=== PATIENT | male | born 1940 | race Caucasian/White ===

== ENCOUNTER 2018-02-22 20:06 | Inpatient (IN) | payer MEDICARE ==
[2018-02-22 22:19] LABS: Glucose,Whole Blood 304 mg/dL (75-99)
--- NOTE | 2018-02-22 22:51 | XR ---
EXAMINATION TYPE: XR chest 1V DATE OF EXAM: 02/22/2018 COMPARISON: 10/17/2012 HISTORY: Difficulty breathing TECHNIQUE: Single frontal view of the chest is obtained. FINDINGS: Heart and mediastinum are normal. Lungs are clear. Diaphragm is normal. There are chest le ads. Bony thorax is intact. IMPRESSION: No active cardiopulmonary disease. No change.
[2018-02-22 23:05] LABS: Basophils % (A) 1 %; Eosinophils % (A) 1 %; HCT 35.2 % (39.0-53.0); HGB 12.8 gm/dL (13.0-17.5); Hyperchromasia Slight; Lymphocytes # (A) 1.5 k/uL (1.0-4.8); Lymphocytes % (A) 21 %; MCH 32.6 pg (25.0-35.0); MCHC 36.3 g/dL (31.0-37.0); MCV 89.9 fL (80.0-100.0); Mean Platelet Volume 8.3; Monocytes # (A) 0.6 k/uL (0-1.0); Monocytes % (A) 8 %; Neutrophils # (A) 4.8 k/uL (1.3-7.7); Neutrophils % (A) 68 %; Platelet Count 143 k/uL (150-450); Poikilocytosis Slight; RBC 3.91 m/uL (4.30-5.90); RDW 13.5 % (11.5-15.5); WBC 7.1 k/uL (3.8-10.6)
[2018-02-22 23:19] LABS: Anion Gap 16 mmol/L; Blood Urea Nitrogen 16 mg/dL (9-20); Calcium 9.4 mg/dL (8.4-10.2); Carbon Dioxide 24 mmol/L (22-30); Chloride 99 mmol/L (98-107); Glucose 328 mg/dL (74-99); Potassium 4.1 mmol/L (3.5-5.1); Sodium 139 mmol/L (137-145)
[2018-02-22] MEDS: INSULIN DETEMIR 100 UNIT/ML 10 ML VIAL SQ SCH (23:38)
[2018-02-22] MEDS: INSULIN ASPART 100 UNIT/ML 1 ML 10 ML VIAL SQ SCH (23:38)
[2018-02-23] MEDS ORDERED: LORazepam 2 MG/ML INJ IV PRN (00:04)
[2018-02-23 02:21] LABS: Glucose,Whole Blood 286 mg/dL (75-99)
[2018-02-23] MEDS: SODIUM CHLORIDE 0.9% 1,000 ML IV SCH ×3 (05:30→17:10)
[2018-02-23 06:08] LABS: Glucose,Whole Blood 252 mg/dL (75-99)
--- NOTE | 2018-02-23 06:15 | HP ---
HISTORY AND PHYSICAL CHIEF COMPLAINT: Uncontrolled blood sugars. HISTORY OF PRESENT ILLNESS: This 77-year-old gentleman with a past medical history of multiple medical problems including diabetes type 2 and history of EtOH use, was apparently noncompliant. The patient is not taking medications and according to the family and the cleaning lady with whom the patient has some contact, the patient is living by himself and the patient became progressively confused and the patient had generalized tiredness and weakness. The patient was falling much and the patient apparently drove himself to [facility] where the blood sugars were found to be more than 800. Patient was started on insulin drip and the patient was transferred to [facility] for further evaluation and treatment. There is no history of any fever, rigors. No headache, loss of consciousness, seizures at this time. The patient is confused and unable to give coherent history. Most of the history is taken during my discussion with staff and as well with discussion with the family at the bedside. The patient also has slurring of speech also. A CT scan done at [place] did not show acute abnormality. PAST MEDICAL HISTORY: Diabetes mellitus type 2 and history of EtOH. Hypertension and hyperlipidemia. HOME MEDICATIONS: 1. Metformin 1000 mg b.i.d. 2. Zocor 20 mg q.h.s. 3. Prilosec 20 mg daily. 4. Prinivil 5 mg daily. 5. Lasix 20 mg daily. 6. Imdur 30 mg. 7. Lantus 45 subcu b.i.d. 8. Iron sulfate 325 mg daily. 9. Coreg 6.25 mg b.i.d. 10.Ecotrin 81 mg daily. ALLERGIES: None. FAMILY HISTORY: No history of heart disease or strokes in the family. SOCIAL HISTORY: History of alcohol. History of THC. REVIEW OF SYSTEMS: Could not be taken. The patient is confused. PHYSICAL EXAM: The pulse is 81, blood pressure 120/80, respirations 20, temperature normal. HEENT: Conjunctivae normal. Oral mucosa moist. Neck is no jugular venous distention. No carotid bruit. No lymph node enlargement. CARDIOVASCULAR: S1, S2. No S3, no S4. RESPIRATORY: Breath sounds diminished in the bases. A few scattered rhonchi and crackles. ABDOMEN: Soft, nontender. No mass palpable. LEGS: No edema, no swelling. NERVOUS SYSTEM: Higher function as mentioned. Moves all 4 limbs. Mild diffuse weakness. LYMPHATICS: No lymphadenopathy in the neck, axillae, groin. SKIN: No ulcer, rash, bleeding. JOINTS: No active deforming arthropathy. LABS: The previous labs reviewed. Current labs are not available. ASSESSMENT: 1. Diabetes type 2 uncontrolled. 2. Change in mental status, metabolic encephalopathy, multifactorial. 3. Slurring of speech, rule out transient ischemic attack. 4. Hypertension. 5. Hyperlipidemia. 6. History of noncompliance. 7. History of depression. 8. History EtOH remotely. 9. Falls and gait dysfunction. RECOMMENDATIONS AND DISCUSSION: This 77-year-old gentleman, I would recommend continue the current medications. Blood sugar has been apparently controlled at this time. I recommend to transition to Accu- Cheks a.c. and at bedtime and monitor blood sugars closely. Otherwise, repeat labs. I would also recommend a neurology evaluation also. PT/OT evaluation, possible ECF rehab. Prognosis guarded because of multiple complex medical issues. Repeat labs are ordered. Discussed with the patient who understands. Further recommendations to follow. MMODL / IJN: [id number] /
[2018-02-23] MEDS: INSULIN ASPART 100 UNIT/ML 1 ML 10 ML VIAL SQ SCH ×8 (07:02→21:09)
[2018-02-23 07:12] LABS: ALT 23 U/L (21-72); AST 13 U/L (17-59); Albumin 3.9 g/dL (3.5-5.0); Alkaline Phosphatase 107 U/L (38-126); Anion Gap 13 mmol/L; Blood Urea Nitrogen 14 mg/dL (9-20); Calcium 9.3 mg/dL (8.4-10.2); Carbon Dioxide 28 mmol/L (22-30); Chloride 100 mmol/L (98-107); Glucose 254 mg/dL (74-99); Potassium 3.7 mmol/L (3.5-5.1); Sodium 141 mmol/L (137-145); Total Bilirubin 0.5 mg/dL (0.2-1.3); Total Protein 6.7 g/dL (6.3-8.2)
[2018-02-23] MEDS: HEPARIN SODIUM,PORCINE 5,000 UNIT/ML 1 ML VIAL SQ SCH ×2 (08:09→21:33)
[2018-02-23] MEDS: INSULIN DETEMIR 100 UNIT/ML 10 ML VIAL SQ SCH ×2 (08:09→21:32)
[2018-02-23 08:30] LABS: Glucose,Whole Blood 290 mg/dL (75-99)
[2018-02-23] MEDS ORDERED: LISINOPRIL 5 MG TAB PO SCH (09:00)
[2018-02-23] MEDS ORDERED: PANTOPRAZOLE 40 MG TABLET PO SCH (09:00)
[2018-02-23] MEDS ORDERED: FUROSEMIDE 20 MG TAB PO SCH (09:00)
--- NOTE | 2018-02-23 10:07 | ECHOF ---
Referral Reason:cardiac history MEASUREMENTS -------- HEIGHT: 182.9 cm WEIGHT: 79.4 kg BP: IVSd: 1.1 cm (0.6 - 1.1) LVIDd: 3.8 cm (3.9 - 5.3) LVPWd: 1.3 cm (0.6 - 1.1) IVSs: 1.8 cm LVIDs: 3.1 cm LVPWs: 1.6 cm LAESV Index (A-L): 25.43 ml/m Ao Diam: 3.9 cm (2.0 - 3.7) AV Cusp: 1.9 cm (1.5 - 2.6) LA Diam: 3.6 cm (2.7 - 3.8) MV EXCURSION: 16.486 mm (> 18.000) MV EF SLOPE: 37 mm/s (70 - 150) EPSS: 0.5 cm MV E Sylvain: 0.59 m/s MV DecT: 243 ms MV A Sylvain: 0.88 m/s MV E/A Ratio: 0.67 RAP: 5.00 mmHg RVSP: 27.25 mmHg FINDINGS -------- Sinus rhythm. This was a technically adequate study. The left ventricular size is normal. There is borderline concentric left ventricular hypertrophy. Overall left ventricular systolic function is low-normal with, an EF between 50 - 55 %. The right ventricle is normal in size. The left atrial size is normal. Normal LA size by volume 22+/-6 ml/m2. The right atrial size is normal. There is mild aortic valve sclerosis. There is no evidence of aortic regurgitation. Mild mitral annular calcification present. Mild mitral regurgitation is present. Mild tricuspid regurgitation present. There is no evidence of pulmonary hypertension. The right v entricular systolic pressure, as measured by Doppler, is 27.25mmHg. There is no pulmonic regurgitation present. The aortic root size is normal. There is no pericardial effusion. CONCLUSIONS -------- 1. The left ventricular size is normal. 2. There is borderline concentric left ventricular hypertrophy. 3. Overall left ventricular systolic function is low-normal with, an EF between 50 - 55 %. 4. The left atrial size is normal. 5. There is mild aortic valve sclerosis. 6. Mild mitral annular calcification present. 7. Mild mitral regurgitation is present. 8. Mild tricuspid regurgitation present. 9. There is no evidence of pulmonary hypertension. 10. The right ventricular systolic pressure, as measured by Doppler, is 27.25mmHg. 11. There is no pulmonic regurgitation present. 12. The aortic root size is normal. 13. There is no pericardial effusion. MANAGER SUSTAINABILITY: Shreya Perkins RDCS
--- NOTE | 2018-02-23 11:22 | US ---
EXAMINATION TYPE: US carotid duplex BILAT DATE OF EXAM: 02/23/2018 COMPARISON: 09/30/2011 CLINICAL HISTORY: neuro changes. EXAM MEASUREMENTS: RIGHT: Peak Systolic Velocity (PSV) cm/sec ----- Right CCA: 101.7 ----- Right ICA: 73.6 ----- Right ECA: 83.0 ICA/CCA ratio: 0.7 RIGHT: End Diastole cm/sec ----- Right CCA: 12.4 ----- Right ICA: 13.5 ----- Right ECA: 0.0 LEFT: Peak Systolic Velocity (PSV) cm/sec ----- Left CCA: 101.7 ----- Left ICA: 88.5 ----- Left ECA: 155.5 ICA/CCA ratio: 0.9 LEFT: End Diastole cm/sec ----- Left CCA: 12.4 ----- Left ICA: 12.5 ----- Left ECA: 16.6 VERTEBRALS (direction of flow): Right Vertebral: Antegrade Left Vertebral: Antegrade Rhythm: Arrhythmia Technically difficult study, patient unable to cooperate with examiner. No significant stenosis seen. Atherosclerotic plaque noted. IMPRESSION: 1. Limited exam as discussed above demonstrates cardiac arrhythmia. No diagnostic evidence of signifi cant hemodynamic stenosis. Criteria for Assigning % of Stenosis / Diameter reduction (Estimation based on the indirect measurements of the internal carotid artery velocities (ICA PSV). 1. Normal (no stenosis)=ICA PSV < 125 cm/s: ratio < 2.0: ICA EDV<40 cm/s. 2. Less than 50% stenosis=ICA PSV < 125 cm/s: ratio < 2.0: ICA EDV<40 cm/s. 3. 50 to 69% stenosis=ICA PSV of 125 to 230 cm/s: ration 2.0 ? 4.0: ICA EDV 40-100 cm/s. 4. Greater than 70% stenosis to near occlusion= ICA PSV > 230 cm/s: ratio > 4.0: ICA EDV > 100 cm/s. 5. Near occlusion= ICA PSV velocities may be low or undetectable: variable ratio and ICA EDV. 6. Total occlusion=unable to detect flow.
[2018-02-23 11:47] LABS: Glucose,Whole Blood 173 mg/dL (75-99)
--- NOTE | 2018-02-23 11:58 | P.OP ---
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 Description of Procedure: Pt had a flexible scope inserted into the left nares thru the floor of the nose to the nasopharynx and into the larynx. Pt is unable to cooperate with swallow maneuver. Poor effort, no tumors noted
--- NOTE | 2018-02-23 11:58 | P.CN ---
Psychiatric Consult - . Consult date: 02/23/18 Consult:: 02/23/18 11:43 Patient was seen for a psych consult regarding altered mental status. Patient is sound asleep and information was gathered from his chart and his who was visiting him. His told me that patient drove himself to [facility], his blood sugar was over 800, had incontinence of bowel and bladder etc. She also said he has been talking like he had a stroke, had difficulty in pronouncing words, difficulty in swallowing etc. Apparently they don't live together and patient has some help from another person regarding housekeeping. Patient's denies any psychiatric issues for this patient. His CBC shows normocytic normochromic anemia, thrombocytopenia, chemistry shows elevated blood glucose which was 328 on 02/22/2018 at 2230 hrs. echocardiogram shows borderline and left 20 to or hypertrophy, left ventricular ejection fraction between 50-55%, mild mitral regurgitation, mild tricuspid regurgitation. Assessment: Probable metabolic encephalopathy secondary to hyperglycemia, hyperlipidemia associated with anemia. Possible cerebrovascular accident. Does not appear to be related to any psychiatric condition. Suggestion: Medical management of his conditions including neurology consult for possible stroke as ordered, patient is currently seen by ENT specialist regarding dysphagia.
--- NOTE | 2018-02-23 12:04 | P.GSCN ---
History of Present Illness Consult date: 02/23/18 Reason for Consult: dysphagia, history of right false cord cancer 2011, cancer free since treatment completed History of present illness: Pt lives alone and stopped taking his insulin. Drove himself to the hospital and transferrred here to [facility]. Pt's blood sugar was over 800 and this is being treated. He is minimally reponsive. Unable to communicate and I cannot get any history from this pt. Review of Systems Unable to get ROS, pt not communicative - Constitutional Reports as per HPI - EENT Ears, nose, mouth and throat: Reports as per HPI - Cardiovascular Reports as per HPI - Respiratory Reports as per HPI - Gastrointestinal Reports as per HPI - Genitourinary Reports as per HPI - Musculoskeletal Reports as per HPI - Integumentary Reports as per HPI - Neurological Reports as per HPI - Psychiatric Reports as per HPI - Endocrine Reports as per HPI - Hematologic/Lymphatic Reports as per HPI - Allergic/Immunologic Reports as per HPI Past Medical History Past Medical History: Coronary Artery Disease (CAD), Cancer, Diabetes Mellitus, Hyperlipidemia, Hypertension, Myocardial Infarction ([place]) Additional Past Medical History / Comment(s): kidney stones, pancreatitis, vocal cord cancer, detached retina, Hard of Hearing, recovering alcoholic ( stopped drinking 1984) Last Myocardial Infarction Date:: 2012 History of Any Multi-Drug Resistant Organisms: None Reported Past Surgical History: Cholecystectomy, Heart Catheterization With Stent Past Anesthesia/Blood Transfusion Reactions: No Reported Reaction Date of Last Stent Placement:: 2015 Past Psychological History: Depression Smoking Status: Former smoker Past Alcohol Use History: Abuse Additional Past Alcohol Use History / Comment(s): recovering alcoholic - Past Family History Father History Unknown: Yes Medications and Allergies Home Medications Medication Instructions Recorded Confirmed Type Aspirin EC [Ecotrin Low Dose] 81 mg PO DAILY 02/22/18 02/22/18 History Carvedilol [Coreg] 6.25 mg PO BID 02/22/18 02/22/18 History Ferrous Sulfate [Feosol] 325 mg PO DAILY 02/22/18 02/22/18 History Furosemide [Lasix] 20 mg PO DAILY 02/22/18 02/22/18 History Insulin Aspart [NovoLOG 15 unit SQ AC-TID 02/22/18 02/22/18 History (formulary)] Insulin Glargine [Lantus] 45 unit SQ BID 02/22/18 02/22/18 History Isosorbide Mononitrate ER [Imdur] 30 mg PO DAILY 02/22/18 02/22/18 History Lisinopril [Prinivil] 5 mg PO DAILY 02/22/18 02/22/18 History Omeprazole [PriLOSEC] 20 mg PO DAILY 02/22/18 02/22/18 History Simvastatin [Zocor] 20 mg PO HS 02/22/18 02/22/18 History metFORMIN HCL 1,000 mg PO BID 02/22/18 02/22/18 History Allergies Allergy/AdvReac Type Severity Reaction Status Date / Time No Known Allergies Allergy Verified 02/22/18 23:18 Surgical - Exam Osteopathic Statement: *. No significant issues noted on an osteopathic structural exam other than those noted in the History and Physical/Consult. Vital Signs Temp Pulse Resp BP Pulse Ox 98.1 F 99 18 120/66 96 02/22/18 22:00 02/22/18 22:00 02/22/18 22:00 02/22/18 22:00 02/22/18 22:00 - General well developed, well nourished - Eyes PERRL - ENT normal pinna, normal nares - Abdomen Abdomen: soft - Integumentary no rash, no growths - Neurologic unable to communicate disoriented - Psychiatric no oriented to time, no oriented to person, no oriented to place, no speech is normal, no memory intact Results - Labs 02/22/18 22:43 02/23/18 06:03 Abnormal Lab Results - Last 24 Hours (Table) 02/22/18 02/22/18 02/22/18 Range/Units 22:17 22:43 22:43 RBC 3.91 L (4.30-5.90) m/uL Hgb 12.8 L (13.0-17.5) gm/dL Hct 35.2 L (39.0-53.0) % Plt Count 143 L (150-450) k/uL Glucose 328 H (74-99) mg/dL POC Glucose (mg/dL) 304 H (75-99) mg/dL AST (17-59) U/L 02/23/18 02/23/18 02/23/18 Range/Units 02:20 06:03 06:07 RBC (4.30-5.90) m/uL Hgb (13.0-17.5) gm/dL Hct (39.0-53.0) % Plt Count (150-450) k/uL Glucose 254 H (74-99) mg/dL POC Glucose (mg/dL) 286 H 252 H (75-99) mg/dL AST 13 L (17-59) U/L 02/23/18 02/23/18 Range/Units 08:10 11:42 RBC (4.30-5.90) m/uL Hgb (13.0-17.5) gm/dL Hct (39.0-53.0) % Plt Count (150-450) k/uL Glucose (74-99) mg/dL POC Glucose (mg/dL) 290 H 173 H (75-99) mg/dL AST (17-59) U/L Diabetes panel 02/22/18 02/23/18 Range/Units 22:43 06:03 Sodium 139 141 (137-145) mmol/L Potassium 4.1 3.7 (3.5-5.1) mmol/L Chloride 99 100 (98-107) mmol/L Carbon Dioxide 24 28 (22-30) mmol/L BUN 16 14 (9-20) mg/dL Creatinine 0.80 0.82 (0.66-1.25) mg/dL Glucose 328 H 254 H (74-99) mg/dL Calcium 9.4 9.3 (8.4-10.2) mg/dL AST 13 L (17-59) U/L ALT 23 (21-72) U/L Alkaline Phosphatase 107 (38-126) U/L Total Protein 6.7 (6.3-8.2) g/dL Albumin 3.9 (3.5-5.0) g/dL Calcium panel 02/22/18 02/23/18 Range/Units 22:43 06:03 Calcium 9.4 9.3 (8.4-10.2) mg/dL Albumin 3.9 (3.5-5.0) g/dL Pituitary panel 02/22/18 02/23/18 Range/Units 22:43 06:03 Sodium 139 141 (137-145) mmol/L Potassium 4.1 3.7 (3.5-5.1) mmol/L Chloride 99 100 (98-107) mmol/L Carbon Dioxide 24 28 (22-30) mmol/L BUN 16 14 (9-20) mg/dL Creatinine 0.80 0.82 (0.66-1.25) mg/dL Glucose 328 H 254 H (74-99) mg/dL Calcium 9.4 9.3 (8.4-10.2) mg/dL Adrenal panel 02/22/18 02/23/18 Range/Units 22:43 06:03 Sodium 139 141 (137-145) mmol/L Potassium 4.1 3.7 (3.5-5.1) mmol/L Chloride 99 100 (98-107) mmol/L Carbon Dioxide 24 28 (22-30) mmol/L BUN 16 14 (9-20) mg/dL Creatinine 0.80 0.82 (0.66-1.25) mg/dL Glucose 328 H 254 H (74-99) mg/dL Calcium 9.4 9.3 (8.4-10.2) mg/dL Total Bilirubin 0.5 (0.2-1.3) mg/dL AST 13 L (17-59) U/L ALT 23 (21-72) U/L Alkaline Phosphatase 107 (38-126) U/L Total Protein 6.7 (6.3-8.2) g/dL Albumin 3.9 (3.5-5.0) g/dL Assessment and Plan (1) Dysphagia Current Visit: Yes Status: Acute Code(s): R13.10 - DYSPHAGIA, UNSPECIFIED SNOMED Code(s): 98412146 Plan: Pt does not make an effort to swallow and most liikely has a central issue, either from his hyperglycemia or from a CVA. If we do not get resolution, a feeding tube is indicated. Recommend a barium swallow. To follow up in the office afer discharge. Time with Patient: Greater than 30
[2018-02-23] MEDS: ISOSORBIDE MONONITRATE ER 30 MG TAB.ER.24H PO SCH (12:44)
[2018-02-23] MEDS: CARVEDILOL 6.25 MG TAB PO SCH ×2 (12:44→20:25)
[2018-02-23] MEDS: metFORMIN 500 MG TAB PO SCH ×2 (12:44→20:25)
[2018-02-23] MEDS: ASPIRIN 81 MG PO SCH (12:44)
[2018-02-23] MEDS: PANTOPRAZOLE 40 MG/10 ML VIAL IVP SCH (12:53)
[2018-02-23] MEDS: FUROSEMIDE 10 MG/ML 2 ML VIAL IV SCH (12:53)
[2018-02-23] MEDS: ENALAPRILAT 1.25 MG/ML 1 ML VIAL IV SCH ×3 (12:54→23:47)
--- NOTE | 2018-02-23 13:46 | XR ---
EXAMINATION TYPE: XR chest 1V portable DATE OF EXAM: 02/23/2018 COMPARISON: NONE HISTORY: Shortness of breath TECHNIQUE: Single frontal view of the chest is obtained. FINDINGS: There is no focal air space opacity, pleural effusion, or pneumothorax seen. The cardiac silhouette size is within normal limits. The osseous structures are intact. Biapical pleural thicke anisha. Hyperinflation suggests COPD. There is a convex margin to the left hilum. Question irregular de nsity left upper lobe somewhat limited by technique. IMPRESSION: 1. COPD with no acute infiltrate. There is a convex margin to the left hilum and a questionable area of nodularity within the left upper lobe. Recommend a CT of the chest to exclude mass or adenopathy..
--- NOTE | 2018-02-23 15:32 | CT ---
EXAMINATION TYPE: CT brain wo con DATE OF EXAM: 02/23/2018 COMPARISON: NONE HISTORY: Altered mental status, weakness CT DLP: 998.[address] of the brain was performed. The ventricles, basal cisterns and sulci overlying the cerebral convexities demonstrate moderate enla rgement. There is no evidence for intracranial hemorrhage or sulcal effacement. There is decreased attenuation about the periventricular white matter and deep white matter of both c erebral hemispheres, compatible with chronic small vessel ischemia. Differential diagnosis does inclu de demyelination. No mass effects are seen.No midline shift. Osseous calvarium is intact. If symptoms persist consider MRI. IMPRESSION: 1. Age related atrophic and chronic small vessel ischemic change without acute intracranial process s een at this time.
--- NOTE | 2018-02-23 15:36 | CT ---
EXAMINATION TYPE: CT chest wo con DATE OF EXAM: 02/23/2018 COMPARISON: NONE HISTORY: Abnormal chest x-ray CT DLP: 454.[address] of the chest was performed with lung and mediastinal window settings submitted. The la ck of contrast limits evaluation of the vascular, mediastinal and parenchymal structures including th e upper abdomen. LUNGS: The lungs are clear and free of infiltrate. No atelectasis. No pulmonary nodule or mass is de tected. No pleural effusion. No CT evidence of interstitial lung disease. MEDIASTINUM/SUHA: Thoracic aorta is of normal caliber with limited evaluation given lack of contrast . The heart is mildly enlarged. Coronary artery calcifications noted. No evidence for mediastinal m ass. No lymph nodes greater than 1cm. UPPER ABDOMEN: No significant abnormality is seen. OTHER: No significant other abnormality. IMPRESSION: 1. COPD changes without evidence for suspicious nodule or mass.
[2018-02-23 16:56] LABS: Glucose,Whole Blood 165 mg/dL (75-99)
[2018-02-23] MEDS: PIPERACILLIN-TAZOBACTAM 3.375 GM in DEXTROSE/WATER 1 50ML.BAG IVPB SCH (17:11)
[2018-02-23] MEDS: ACETAMINOPHEN SUPPOSITORY 650 MG SUPP RECTAL PRN (18:16)
[2018-02-23 19:00] LABS: Hemoglobin A1C 12.1 % (4.0-6.0)
[2018-02-23] MEDS: ATORVASTATIN 10 MG TAB PO SCH (20:25)
[2018-02-23 20:57] LABS: Glucose,Whole Blood 127 mg/dL (75-99)
--- NOTE | 2018-02-23 21:30 | PN ---
PROGRESS NOTE DATE OF SERVICE: 02/23/2018 This 77-year-old gentleman who was admitted with uncontrolled diabetes also had change in mental status and slurring of speech. The patient has multiple other medical problems, including speech problems which was evaluated by a flexible laryngoscopy by Dr. Loco. The patient had dysphagia as well. Otherwise, a chest CT scan was also done which showed COPD without any evidence of any suspicious nodules and a repeat CT scan of the brain was done which showed age-related atrophic changes and a carotid Doppler was also done which showed no significant hemodynamically significant stenosis and 2D echo with Doppler was also done which showed ejection fraction of 50%-55 % with mild valvular abnormalities. The patient remains confused at this time. The patient also running some fever. PAST MEDICAL HISTORY: Reviewed. REVIEW OF SYSTEMS: Could not be taken, as the patient is confused. CURRENT MEDICATIONS: Reviewed, include: 1. Tylenol 650 p.r.n. 2. Aspirin 81 mg p.o. daily. 3. Lipitor 10 mg q.h.s. 4. Coreg 6.25 mg p.o. b.i.d. 5. Vasotec 0.625 mg IV every 6 hours p.r.n. 6. Lasix 20 mg IV daily. heparin 5000 subcu daily b.i.d. 7. NovoLog 15 mg t.i.d. 8. Levemir 45 units subcu b.i.d. 9. Imdur 30 mg p.o. daily. 10.Ativan 0.5 mg every 6 hours. 11.Glucophage 1000 mg p.o. b.i.d. 12.Protonix 40 mg. 13.Zosyn 3.65 IV q.8h. A chest x-ray was also done today personally reviewed by me which showed some minimally increased bronchovascular markings. PHYSICAL EXAM: The patient is conscious, confused. Temperature 101. The pulse is 98, blood pressure 141/81, respirations 20, pulse ox 94% on room air. HEENT: Conjunctivae normal. Oral mucosa moist. NECK: No jugular venous distention. No carotid bruits. No lymph node enlargement. CARDIOVASCULAR: S1, S2 muffled. RESPIRATORY: Breath sounds diminished in the bases. A few scattered rhonchi and crackles. ABDOMEN: Soft, nontender. LEGS: No edema. NERVOUS SYSTEM: Diffusely weak. LABS: Accu-Cheks 254. Platelets 143. ASSESSMENT: 1. Diabetes mellitus type 2, uncontrolled, present on admission. 2. Change in mental status, acute metabolic encephalopathy, multifactorial. 3. patient dysphagia, possible transient ischemic attack/stroke. 4. Hypertension. 5. Hyperlipidemia. 6. History of noncompliance. 7. Possible aspiration pneumonia with a fever. 8. History of depression. 9. History of EtOH, remote history. 10.Falls and gait dysfunction. 11.NO CODE, NO CPR, NO VENT. RECOMMENDATIONS AND DISCUSSION: Recommend to continue current medical management and symptomatic this. As mentioned earlier, broad-spectrum IV antibiotic has been added. The repeat neurology workup also did not show any stroke or any acute abnormality. We will continue to monitor. If the patient is not improving swallowing-lozano, a PEG tube may be indicated. Otherwise, overall prognosis guarded because of multiple complex medical issues. See orders for further details. I discussed with staff. Further recommendations to follow. MMOTILIOL / IJN: [id number] / MTDEarnest
--- NOTE | 2018-02-23 22:41 | CONS ---
CONSULTATION DATE OF CONSULTATION: 02/23/2018. CHIEF COMPLAINT: Altered mental status and slurred speech. HISTORY OF PRESENT ILLNESS: The patient is a 77-year-old male, who is being evaluated by the neurology service per the request of Dr. Galvan for the above-mentioned complaints. The patient was brought into [facility] Emergency Room after he was found to be significantly confused by his cleaning lady. The patient lives alone. According to the chart, the patient stopped taking all of his medications for unknown reason. He has history of diabetes and also stopped taking his insulin. His serum glucose was greater than 800 on arrival. He was diagnosed with diabetic ketoacidosis and admitted for further workup and management. He was started on an insulin drip. The patient was disoriented in the emergency room and it was also noticed that his speech was slurred. A neurology consultation was obtained. The patient has also been having difficulty swallowing since his admission. He does take aspirin 81 mg daily at home, but he recently stopped his medications as mentioned above. A CT scan of the brain was done, which showed generalized atrophy and small-vessel ischemic changes. His carotid Doppler showed no hemodynamically significant stenosis, but there was evidence of arrhythmia. His comprehensive metabolic profile was normal except for hyperglycemia as mentioned above. His CT of the chest showed chronic obstructive pulmonary disease changes with no masses found. His CBC showed anemia with a hemoglobin of 12.8 and hematocrit of 35% and mild thrombocytopenia at 143,000. Speech therapy has been consulted regarding his dysphagia. A psychiatry consultation was also ordered. PAST MEDICAL HISTORY: Diabetes, history of alcohol abuse, hypertension, dyslipidemia, gastroesophageal reflux disease, iron deficiency. FAMILY HISTORY: Noncontributory. SOCIAL HISTORY: The patient has history of alcohol abuse. There is also history of marijuana use. HOME MEDICATIONS: Reviewed in the chart. ALLERGIES: No known drug allergies. REVIEW OF SYSTEMS: Unable to obtain due to altered mental status. PHYSICAL EXAM: Vital signs show a temperature of 101, pulse 98, respirations 20, blood pressure 141/81. GENERAL APPEARANCE: The patient is a well-developed, elderly male who appears to be in no acute distress. HEENT: Normocephalic, atraumatic. No facial asymmetry is seen. NECK: Supple with no masses felt. CARDIOVASCULAR: Regular rate and rhythm. ABDOMEN: Nontender, nondistended. Extremities showed no edema or clubbing. NEUROLOGICAL: The patient is drowsy. He is oriented to person only. Speech is mildly dysarthric. Language testing was normal. No lateralizing weakness is seen. No tremors or seizure-like activity is noticed. No obvious facial asymmetry is seen on cranial nerve testing. IMPRESSION: 1. Altered mental status. 2. Possible transient ischemic attack. 3. Dysarthria, improving. 4. Dysphagia. 5. Uncontrolled diabetes. 6. Small-vessel ischemic disease. 7. Fever. RECOMMENDATION: The patient's altered mental status is most likely due to metabolic encephalopathy, given his diabetic ketoacidosis and medication noncompliance. It is unclear why the patient stopped taking all of his medications but a psychiatry consultation has been ordered. His initial CT scan of the brain showed no acute abnormalities. He does not have any lateralizing weakness, but continues to have difficulty swallowing. I will repeat a CT scan of the brain in the morning. Speech therapy has been consulted. An EEG has been ordered. Consider fci placement for this patient as he appears to be unable to care for himself. I discussed my findings and recommendation with his , who is at bedside at the time of my evaluation. I also recommend further workup regarding his fever. His exam shows no nuchal rigidity and his CBC showed no leukocytosis. I doubt any intracranial etiology for infection. I will continue to follow with you. Further recommendations to follow. Thank you for allowing me to participate in the care of your patient. If you have any questions, please feel free to contact me. JUVENAL / LEDA: [id number] /
[2018-02-24] MEDS: PIPERACILLIN-TAZOBACTAM 3.375 GM in DEXTROSE/WATER 1 50ML.BAG IVPB SCH ×4 (00:35→23:18)
[2018-02-24 06:02] LABS: Glucose,Whole Blood 218 mg/dL (75-99)
[2018-02-24] MEDS: INSULIN ASPART 100 UNIT/ML 1 ML 10 ML VIAL SQ SCH ×7 (06:09→22:06)
[2018-02-24] MEDS: ENALAPRILAT 1.25 MG/ML 1 ML VIAL IV SCH ×4 (06:09→23:15)
[2018-02-24 06:31] LABS: Basophils % (A) 1 %; Eosinophils % (A) 0 %; HCT 40.6 % (39.0-53.0); HGB 13.6 gm/dL (13.0-17.5); Lymphocytes # (A) 1.7 k/uL (1.0-4.8); Lymphocytes % (A) 23 %; MCH 31.6 pg (25.0-35.0); MCHC 33.4 g/dL (31.0-37.0); MCV 94.4 fL (80.0-100.0); Monocytes # (A) 0.7 k/uL (0-1.0); Monocytes % (A) 9 %; Neutrophils # (A) 4.9 k/uL (1.3-7.7); Neutrophils % (A) 66 %; Platelet Count 128 k/uL (150-450); RDW 13.5 % (11.5-15.5); WBC 7.5 k/uL (3.8-10.6)
[2018-02-24 06:46] LABS: Anion Gap 13 mmol/L; Blood Urea Nitrogen 11 mg/dL (9-20); Calcium 8.7 mg/dL (8.4-10.2); Carbon Dioxide 28 mmol/L (22-30); Chloride 102 mmol/L (98-107); Glucose 207 mg/dL (74-99); Potassium 3.5 mmol/L (3.5-5.1); Sodium 143 mmol/L (137-145)
--- NOTE | 2018-02-24 08:20 | CT ---
"EXAMINATION TYPE: CT brain wo con DATE OF EXAM: 02/24/2018 HISTORY: AMS. Dysphagia. R|\\O CVA CT DLP: 1023.20 mGycm. Automated Exposure Control for Dose Reduction was Utilized. TECHNIQUE: CT scan of the head is performed without contrast. COMPARISON: CT brain from one day earlier. FINDINGS: There is no acute intracranial hemorrhage or midline shift identified. There is diffuse v entricular and sulcal prominence consistent with diffuse age-related cerebral atrophy. There is low- attenuation in the periventricular white matter consistent with chronic small vessel ischemic change. Scleral calcification left globe is redemonstrated. Visualized paranasal sinuses are clear. IMPRESSION: No acute intracranial hemorrhage or midline shift. There is moderate diffuse age-relate d cerebral atrophy and mild to moderate chronic small vessel ischemic change redemonstrated. There i s no significant change from CT one day earlier."
[2018-02-24] MEDS ORDERED: POTASSIUM CHLORIDE 40 MEQ in SODIUM CHLORIDE 0.9% 250 ML IVPB ONE (09:00)
--- NOTE | 2018-02-24 09:42 | FL ---
EXAMINATION TYPE: FL barium swallow w video DATE OF EXAM: 02/24/2018 MODIFIED SWALLOW / DEGLUTITION STUDY CLINICAL HISTORY: Dysphagia. Rule out aspiration. TECHNIQUE: Deglutition study is performed utilizing thin liquid barium and honey thick liquid barium . A total of 47 seconds of fluoroscopic time was utilized during procedure. Approximately 4 cine clip s were obtained. 0 images are saved to PACS. COMPARISON: None. FINDINGS: The oral and pharyngeal phases show satisfactory initiation with all modalities tested. The re is thickened epiglottis. There is poor epiglottis inversion. Aspiration was observed with both mo dalities tested which initiated cough reflex. Mild to moderate pharyngeal residue was appreciated. IMPRESSION: Aspiration with both tested modalities. More viscous modalities were not tested. Please refer to speech therapist notes for further details if necessary.
[2018-02-24] MEDS: ASPIRIN 81 MG PO SCH (09:50)
[2018-02-24] MEDS: CARVEDILOL 6.25 MG TAB PO SCH ×2 (09:50→20:03)
[2018-02-24] MEDS: ISOSORBIDE MONONITRATE ER 30 MG TAB.ER.24H PO SCH (09:51)
[2018-02-24] MEDS: metFORMIN 500 MG TAB PO SCH ×2 (09:51→20:03)
[2018-02-24] MEDS: HEPARIN SODIUM,PORCINE 5,000 UNIT/ML 1 ML VIAL SQ SCH ×2 (09:58→22:13)
[2018-02-24] MEDS: PANTOPRAZOLE 40 MG/10 ML VIAL IVP SCH (09:58)
[2018-02-24] MEDS: FUROSEMIDE 10 MG/ML 2 ML VIAL IV SCH (09:58)
[2018-02-24] MEDS: INSULIN DETEMIR 100 UNIT/ML 10 ML VIAL SQ SCH ×2 (10:02→22:05)
[2018-02-24 12:05] LABS: Glucose,Whole Blood 217 mg/dL (75-99)
[2018-02-24] MEDS: SODIUM CHLORIDE 0.9% 1,000 ML IV SCH (14:46)
--- NOTE | 2018-02-24 14:46 | P.PN ---
Subjective Progress Note Date: 02/24/18 Principal diagnosis: Altered mental status and dysphagia 77-year-old male continuingly evaluated by the neurology service. He was brought to [facility] emergency room significantly confused. Apparently had stopped taking all of his medication for an abnormal region. He has a history of diabetes. His glucose on presentation was greater than 800. He was in diabetic ketoacidosis. She was having some slurred speech. Initially he had told that he been having swallowing since his admission. I spoke with his today and she says this is been going on for more than a year. It started with liquids in mouth having trouble swallowing most things. Initial CT of the brain was done and showed only some generalized atrophy and small vessel ischemic changes. Carotid Doppler showed no hemodynamically significant stenosis. A repeat CT was unchanged. A modified barium swallow was done aspiration was observed with both modalities tested. Both initiated a cough reflex. He also had moderate pharyngeal residue. ENT consultation has been placed. Objective - Vital Signs Vital signs: Vital Signs Temp 99.4 F 02/24/18 11:58 Pulse 91 02/24/18 11:58 Resp 20 02/24/18 11:58 BP 129/60 02/24/18 11:58 Pulse Ox 94 L 02/24/18 11:58 Intake & Output 02/23/18 02/24/18 02/24/18 18:59 06:59 18:59 Intake Total 400 700 Output Total 75 125 Balance -75 400 575 Weight 76 kg 80.5 kg 80.5 kg Intake: IV 400 700 Piperacillin-Tazobactam 3 50 .375 gm In Dextrose/Water 1 50ml.bag @ 12.5 mls/hr IVPB Q8HR MARGY Rx#: [id number] Potassium Chloride 40 meq 250 In Sodium Chloride 0.9% 250 ml @ 62.5 mls/hr IVPB ONCE ONE Rx#:[id number] Sodium Chloride 0.9% 1, 400 400 000 ml @ 50 mls/hr IV . Q20H MARGY Rx#:[id number] Output: Urine 75 125 Other: Voiding Method Incontinent Incontinent # Voids 1 2 - Constitutional General appearance: Present: average body habitus, cooperative - EENT Eyes: Present: PERRLA. Absent: abnormal pupil, ptosis ENT: Present: hearing grossly normal - Neck Neck: Present: normal ROM. Absent: rigidity - Respiratory Respiratory: negative: prolonged expiration, prolonged inspiration - Cardiovascular Rhythm: regular - Gastrointestinal General gastrointestinal: Absent: distended, tenderness - Neurologic Neurologic Comment(s): The patient is oriented to person place and partially to time. Speech is still mildly dysarthric. Language testing is normal. There is no lateralizing weakness. No tremors or seizure-like activities are seen. He has some bilateral symmetrical lower extremity sensory deficit. - Labs CBC & Chem 7: 02/24/18 05:34 02/24/18 05:34 Labs: Abnormal Lab Results - Last 24 Hours (Table) 02/23/18 02/23/18 02/23/18 Range/Units 06:03 16:46 20:56 Plt Count (150-450) k/uL Glucose (74-99) mg/dL POC Glucose (mg/dL) 165 H 127 H (75-99) mg/dL Hemoglobin A1c 12.1 H (4.0-6.0) % 02/24/18 02/24/18 02/24/18 Range/Units 05:34 05:34 06:00 Plt Count 128 L (150-450) k/uL Glucose 207 H (74-99) mg/dL POC Glucose (mg/dL) 218 H (75-99) mg/dL Hemoglobin A1c (4.0-6.0) % 02/24/18 Range/Units 12:03 Plt Count (150-450) k/uL Glucose (74-99) mg/dL POC Glucose (mg/dL) 217 H (75-99) mg/dL Hemoglobin A1c (4.0-6.0) % Assessment and Plan (1) Altered mental status Current Visit: Yes Status: Resolved Code(s): R41.82 - ALTERED MENTAL STATUS , UNSPECIFIED SNOMED Code(s): 552955626 (2) Diabetic ketoacidosis Current Visit: Yes Status: Acute Code(s): E13.10 - OTH DIABETES MELLITUS WITH KETOACIDOSIS WITHOUT COMA SNOMED Code(s): 105120808 (3) DM (diabetes mellitus) Current Visit: Yes Status: Chronic Code(s): E11.9 - TYPE 2 DIABETES MELLITUS WITHOUT COMPLICATIONS SNOMED Code(s): 75604691 (4) Dysphagia Current Visit: Yes Status: Chronic Code(s): R13.10 - DYSPHAGIA, UNSPECIFIED SNOMED Code(s): 88584005 (5) Aspiration pneumonia Current Visit: Yes Status: Suspected Code(s): J69.0 - PNEUMONITIS DUE TO INHALATION OF FOOD AND VOMIT SNOMED Code(s): 321519484 (6) Metabolic encephalopathy Current Visit: Yes Status: Acute Code(s): G93.41 - METABOLIC ENCEPHALOPATHY SNOMED Code(s): 26364769 Plan: The patient's altered mental status was much most likely due to his diabetic ketoacidosis, causing a metabolic encephalopathy. This is improving. Psychiatric consultation was placed to see why he stopped all his medications. Recall that her repeat CT of the brain showed no acute intracranial abnormalities. We doubt any cerebrovascular incident. He does have a history of unknown type of throat cancer his said is followed by Dr. Loco. Recommend continued ENT consultation. Continue speech therapy. PEG tube placement has been recommended. No further neurological workup is needed. We can be consulted on as-needed basis for any changes in his neurological status. I have performed a history and physical on the above patient. I have reviewed the above note, and agree.
--- NOTE | 2018-02-24 15:47 | P.GSCN ---
History of Present Illness Consult date: 02/24/18 Reason for Consult: Aphasia, protein calorie mild attrition History of present illness: Cyst 69-year-old male who's had issues with swallowing. Patient probably has history of throat cancer. He is unable to swallow. I've asked him regarding PEG tube placement Past Medical History Past Medical History: Coronary Artery Disease (CAD), Cancer, Diabetes Mellitus, Hyperlipidemia, Hypertension, Myocardial Infarction ([place]) Additional Past Medical History / Comment(s): kidney stones, pancreatitis, vocal cord cancer, detached retina, Hard of Hearing, recovering alcoholic ( stopped drinking 1984) Last Myocardial Infarction Date:: 2012 History of Any Multi-Drug Resistant Organisms: None Reported Past Surgical History: Cholecystectomy, Heart Catheterization With Stent Past Anesthesia/Blood Transfusion Reactions: No Reported Reaction Date of Last Stent Placement:: 2015 Past Psychological History: Depression Smoking Status: Former smoker Past Alcohol Use History: Abuse Additional Past Alcohol Use History / Comment(s): recovering alcoholic - Past Family History Father History Unknown: Yes Medications and Allergies Home Medications Medication Instructions Recorded Confirmed Type Aspirin EC [Ecotrin Low Dose] 81 mg PO DAILY 02/22/18 02/22/18 History Carvedilol [Coreg] 6.25 mg PO BID 02/22/18 02/22/18 History Ferrous Sulfate [Feosol] 325 mg PO DAILY 02/22/18 02/22/18 History Furosemide [Lasix] 20 mg PO DAILY 02/22/18 02/22/18 History Insulin Aspart [NovoLOG 15 unit SQ AC-TID 02/22/18 02/22/18 History (formulary)] Insulin Glargine [Lantus] 45 unit SQ BID 02/22/18 02/22/18 History Isosorbide Mononitrate ER [Imdur] 30 mg PO DAILY 02/22/18 02/22/18 History Lisinopril [Prinivil] 5 mg PO DAILY 02/22/18 02/22/18 History Omeprazole [PriLOSEC] 20 mg PO DAILY 02/22/18 02/22/18 History Simvastatin [Zocor] 20 mg PO HS 02/22/18 02/22/18 History metFORMIN HCL 1,000 mg PO BID 02/22/18 02/22/18 History Allergies Allergy/AdvReac Type Severity Reaction Status Date / Time No Known Allergies Allergy Verified 02/22/18 23:18 Surgical - Exam Vital Signs Temp Pulse Resp BP Pulse Ox 98.1 F 99 18 120/66 96 02/22/18 22:00 02/22/18 22:00 02/22/18 22:00 02/22/18 22:00 02/22/18 22:00 - General well developed, cachectic - Eyes PERRL - ENT normal pinna - Neck no masses - Respiratory normal expansion - Cardiovascular Rhythm: regular - Abdomen Abdomen: soft, non tender Results - Labs 02/24/18 05:34 02/24/18 05:34 Abnormal Lab Results - Last 24 Hours (Table) 02/23/18 02/23/18 02/23/18 Range/Units 06:03 16:46 20:56 Plt Count (150-450) k/uL Glucose (74-99) mg/dL POC Glucose (mg/dL) 165 H 127 H (75-99) mg/dL Hemoglobin A1c 12.1 H (4.0-6.0) % 02/24/18 02/24/18 02/24/18 Range/Units 05:34 05:34 06:00 Plt Count 128 L (150-450) k/uL Glucose 207 H (74-99) mg/dL POC Glucose (mg/dL) 218 H (75-99) mg/dL Hemoglobin A1c (4.0-6.0) % 02/24/18 Range/Units 12:03 Plt Count (150-450) k/uL Glucose (74-99) mg/dL POC Glucose (mg/dL) 217 H (75-99) mg/dL Hemoglobin A1c (4.0-6.0) % Diabetes panel 02/23/18 02/24/18 Range/Units 06:03 05:34 Sodium 143 (137-145) mmol/L Potassium 3.5 (3.5-5.1) mmol/L Chloride 102 (98-107) mmol/L Carbon Dioxide 28 (22-30) mmol/L BUN 11 (9-20) mg/dL Creatinine 0.86 (0.66-1.25) mg/dL Glucose 207 H (74-99) mg/dL Hemoglobin A1c 12.1 H (4.0-6.0) % Calcium 8.7 (8.4-10.2) mg/dL Calcium panel 02/24/18 Range/Units 05:34 Calcium 8.7 (8.4-10.2) mg/dL Pituitary panel 02/24/18 Range/Units 05:34 Sodium 143 (137-145) mmol/L Potassium 3.5 (3.5-5.1) mmol/L Chloride 102 (98-107) mmol/L Carbon Dioxide 28 (22-30) mmol/L BUN 11 (9-20) mg/dL Creatinine 0.86 (0.66-1.25) mg/dL Glucose 207 H (74-99) mg/dL Calcium 8.7 (8.4-10.2) mg/dL Adrenal panel 02/24/18 Range/Units 05:34 Sodium 143 (137-145) mmol/L Potassium 3.5 (3.5-5.1) mmol/L Chloride 102 (98-107) mmol/L Carbon Dioxide 28 (22-30) mmol/L BUN 11 (9-20) mg/dL Creatinine 0.86 (0.66-1.25) mg/dL Glucose 207 H (74-99) mg/dL Calcium 8.7 (8.4-10.2) mg/dL Assessment and Plan Assessment: Protein calorie malnutrition secondary to dysphagia and impaired swallowing. Patient will be scheduled for PEG tube placement.
[2018-02-24] MEDS ORDERED: IPRATROPIUM-ALBUTEROL 3 ML NEB INHALATION PRN (16:14)
[2018-02-24 16:53] LABS: Glucose,Whole Blood 157 mg/dL (75-99)
[2018-02-24] MEDS: ACETAMINOPHEN SUPPOSITORY 650 MG SUPP RECTAL PRN (17:03)
--- NOTE | 2018-02-24 17:28 | PN ---
PROGRESS NOTE DATE OF SERVICE: 02/24/2018 This 77-year-old gentleman who was admitted with diabetes mellitus and change in mental status also had significant dysphasia and dysphagia. The patient is unable to even complete a swallowing test at this time. Neurology and multiple consultants are following the patient closely. A dietitian is consulted. Speech Pathology has also seen the patient and recommended possible PEG tube placement at this time. Past medical history reviewed. Review of systems could not be taken; the patient is confused. CURRENT MEDICATIONS: Current medications are reviewed and include: 1. Tylenol. 2. Aspirin. 3. Lipitor. 4. Coreg. 5. Vasotec p.r.n. 6. Heparin. 7. Imdur. 8. Ativan p.r.n. 9. Glucophage. 10.Zosyn IV. PHYSICAL EXAMINATION: Patient is alert, oriented x2. Pulse 96, blood pressure 149/60, respiration 16, temperature 100.8, pulse ox 94% on room air. HEENT: Conjunctivae normal. Oral mucosa moist. NECK: No jugular venous distention. No carotid bruit. No lymph node enlargement. CARDIOVASCULAR SYSTEM: S1, S2 muffled. RESPIRATORY SYSTEM: Breath sounds diminished at the bases. A few scattered rhonchi and crackles. ABDOMEN: Soft, non-tender. LEGS: No edema. No swelling. NERVOUS SYSTEM: No focal deficit. Labs at this time show CBC within normal limits. Platelets 128. Other labs are noted. ASSESSMENT: 1. Diabetes mellitus, type 2, uncontrolled, present on admission. 2. Change in mental status, acute metabolic encephalopathy, multifactorial, present on admission. 3. Severe dysphagia with diminished oral intake with possible transient ischemic attack and stroke. 4. Hypertension. 5. Hyperlipidemia. 6. History of noncompliance. 7. Aspiration pneumonia with fever, possibly. 8. History of depression. 9. History of ethanol remotely. 10.History of falls and gait dysfunction. 11.NO CODE, NO CPR, NO VENT. RECOMMENDATIONS AND DISCUSSION: I recommend to continue current medication, continue symptomatic treatment. Otherwise at this time we will also recommend surgical consultation as well as possible PEG tube placement. Monitor blood sugars closely. Resume the rest of the medications. The patient will need a PEG tube because of the significant problems with dysphagia as well as inability to administer p.o. medications. Prognosis is guarded because of multiple complex medical issues. I will recommend PT/OT evaluation, continued monitoring, and closely monitor. Continue with the DVT prophylaxis. Monitor blood sugars closely. IV antibiotics. I would also recommend cultures and consultation with Infectious Disease. Prognosis is guarded. I had a detailed discussion with the family at the bedside. Further recommendations to follow. Plan for possible ECF once the patient is making improvement. Otherwise, dietitian to follow the patient closely and aspiration precautions. Further recommendations to follow. MMODL / IJN: [id number] /
--- NOTE | 2018-02-24 18:22 | EEG ---
ELECTROENCEPHALOGRAM REPORT DATE OF SERVICE: 02/24/2018. REASON FOR TESTING: Altered mental status. DESCRIPTION OF THE PROCEDURE: This EEG was performed using a 21 channel digital electroencephalograph, following international 10-20 system. DESCRIPTION OF THE RECORDING: From the beginning of the tracing, and with patient's eyes closed, the background rhythm was mostly consisting of 8 Hz alpha frequency in the posterior occipital leads. No obvious asymmetry is seen. Photic stimulation was performed with no driving response seen. No pathological waves were elicited. Occasional muscle artifacts and movement artifacts are seen. The patient remains awake throughout the tracing. No epileptiform discharges were seen. His EKG lead showed a regular rate and rhythm. INTERPRETATION: This awake EEG can be considered within normal limits. There was no asymmetry seen. No epileptiform discharges were noticed. The absence of epileptiform discharges does not rule out the diagnosis of epilepsy, therefore clinical correlation is recommended. MMOTILIOL / LEDA: [id number] /
[2018-02-24] MEDS: IPRATROPIUM-ALBUTEROL 3 ML NEB INHALATION SCH (19:54)
[2018-02-24] MEDS: ATORVASTATIN 10 MG TAB PO SCH (20:03)
[2018-02-24 20:45] LABS: Glucose,Whole Blood 135 mg/dL (75-99)
[2018-02-24] MEDS ORDERED: INSULIN DETEMIR 100 UNIT/ML 10 ML VIAL SQ ONE (23:00)
[2018-02-25 05:54] LABS: Glucose,Whole Blood 132 mg/dL (75-99)
[2018-02-25 06:22] LABS: Basophils % (A) 0 %; Eosinophils # (A) 0.1 k/uL (0-0.7); Eosinophils % (A) 1 %; HCT 38.1 % (39.0-53.0); HGB 13.2 gm/dL (13.0-17.5); Lymphocytes # (A) 1.3 k/uL (1.0-4.8); Lymphocytes % (A) 24 %; MCH 32.4 pg (25.0-35.0); MCHC 34.7 g/dL (31.0-37.0); MCV 93.4 fL (80.0-100.0); Monocytes # (A) 0.5 k/uL (0-1.0); Monocytes % (A) 9 %; Neutrophils # (A) 3.4 k/uL (1.3-7.7); Neutrophils % (A) 63 %; Platelet Count 133 k/uL (150-450); RBC 4.08 m/uL (4.30-5.90); RDW 13.5 % (11.5-15.5); WBC 5.4 k/uL (3.8-10.6)
[2018-02-25] MEDS: ENALAPRILAT 1.25 MG/ML 1 ML VIAL IV SCH ×5 (06:29→23:53)
[2018-02-25] MEDS: INSULIN ASPART 100 UNIT/ML 1 ML 10 ML VIAL SQ SCH ×7 (06:29→21:34)
[2018-02-25] MEDS: SODIUM CHLORIDE 0.9% 1,000 ML IV SCH ×2 (06:32→10:53)
[2018-02-25 06:38] LABS: Anion Gap 13 mmol/L; Blood Urea Nitrogen 13 mg/dL (9-20); Calcium 8.9 mg/dL (8.4-10.2); Carbon Dioxide 27 mmol/L (22-30); Chloride 106 mmol/L (98-107); Glucose 134 mg/dL (74-99); Potassium 3.6 mmol/L (3.5-5.1); Sodium 146 mmol/L (137-145)
[2018-02-25] MEDS: IPRATROPIUM-ALBUTEROL 3 ML NEB INHALATION SCH ×3 (07:20→20:24)
[2018-02-25] MEDS: PIPERACILLIN-TAZOBACTAM 3.375 GM in DEXTROSE/WATER 1 50ML.BAG IVPB SCH ×3 (08:57→23:57)
[2018-02-25] MEDS: PANTOPRAZOLE 40 MG/10 ML VIAL IVP SCH (08:58)
[2018-02-25] MEDS ORDERED: IV FLUID CONTINUATION 1,000 ML IV ONE (09:22)
--- NOTE | 2018-02-25 10:00 | P.OP ---
Date of Procedure: 02/25/18 Preoperative Diagnosis: Protein calorie malnutrition Postoperative Diagnosis: Protein calorie malnutrition Procedure(s) Performed: PEG tube placement Anesthesia: MAC Surgeon: Augustus Smith Pathology: none sent Condition: stable Disposition: PACU Description of Procedure: Patient's placed on the endoscopy table in the lateral position. He received IV sedation. The gastric was placed oropharynx. There appeared to be edema of the oropharynx. The scope was placed into the hypopharynx into the esophagus. At this point the patient appeared to saturate. The scope was withdrawn. The anesthesiologist called the room. Patient received an Endobag and was resuscitated. His sat was 100%. The endoscope was then placed the patient's oropharynx and then placed the esophagus and stomach. The stomach was insufflated with air. A suitable light reflux was seen. The skin was anesthetized 1% local Xylocaine. And then the needles placed into the stomach under direct visualization. The needle was snared and then the wire was placed through the needle and the wire was snared and the wire and brought through the oropharynx. The PEG tube placed overtop the wire and brought down to the stomach. The PEG tube was then secured at the 3 cm mago. The one-piece bolster was applied. Patient top she will well. He was sent to recovery in stable condition.
[2018-02-25] MEDS ORDERED: ALBUTEROL NEBULIZED 2.5 MG/3 ML INHALATION ONE (10:18)
[2018-02-25 10:41] LABS: Glucose,Whole Blood 168 mg/dL (75-99)
[2018-02-25 11:37] LABS: Glucose,Whole Blood 223 mg/dL (75-99)
[2018-02-25] MEDS: ASPIRIN 81 MG PO SCH (11:54)
[2018-02-25] MEDS: CARVEDILOL 6.25 MG TAB PO SCH ×2 (11:54→21:30)
[2018-02-25] MEDS: HEPARIN SODIUM,PORCINE 5,000 UNIT/ML 1 ML VIAL SQ SCH ×2 (11:54→21:30)
[2018-02-25] MEDS: ISOSORBIDE MONONITRATE ER 30 MG TAB.ER.24H PO SCH (11:55)
[2018-02-25] MEDS: FUROSEMIDE 10 MG/ML 2 ML VIAL IV SCH (11:55)
[2018-02-25] MEDS: metFORMIN 500 MG TAB PO SCH ×2 (11:55→21:30)
[2018-02-25] MEDS: INSULIN DETEMIR 100 UNIT/ML 10 ML VIAL SQ SCH ×2 (12:05→21:34)
[2018-02-25 13:04] LABS: T4, Free (Free Thyroxine) 1.7 ng/dL (0.78-2.19)
--- NOTE | 2018-02-25 14:39 | CDI ---
Last Revision, September 2017 Documentation Clarification Form Date: 02/25/2018 2:36:00 AM From: Remedios CabreraMaddoxTEE, CCDS Admit Date: 02/22/2018 10:07:00 PM Patient Name: Byron Sosa Visit Number: [id number] Discharge Date: ATTENTION: The Clinical Documentation Specialists (CDI) and [facility] Coding Staff appreciate your assistance in clarifying documentation. Please respond to the clarification below the line at the bottom and electronically sign. The CDI & [facility] Coding staff will review the response and follow-up if needed. Please note: Queries are made part of the Legal Health Record. If you have any questions, please contact the author of this message via ITS. Dr. Augustus Smith: Malnutrition has been documented in your surgical consult for PEG tube insertion as: " Protein calorie malnutrition secondary to dysphagia and impaired swallowing." History/Risk Factors: DMD II, history of EtOH use, noncompliance with medications. Clinical Indicators: Admitted with uncontrolled DM II, change in mental status, metabolic encephalopathy, possible TIA. Labs: Total Protein: (6.7), Albumin (3.9). Current BMI: 23.1 Treatment: PEG tube inserted for dysphagia and impaired swallowing. Dietitian consult & speech therapy. In your professional opinion, can you please clarify if these findings signify one of the following conditions? Mild Protein-Calorie Malnutrition Moderate Protein-Calorie Malnutrition Severe Protein-Calorie Malnutrition Other condition, please specify Unable to determine Please continue to document in your progress notes and discharge summary in order to capture severity of illness and risk of mortality. Include clinical findings that support your diagnosis. severe protein calorie malnutrition MTDD
--- NOTE | 2018-02-25 16:02 | CONS ---
CONSULTATION DATE OF SERVICE: 02/25/2018. REASON FOR CONSULTATION: Fever. HISTORY OF PRESENT ILLNESS: The patient is a 77-year-old male who was transferred from [facility] for further evaluation. The patient presented with not feeling well and unable to swallow. The patient apparently noticed to have a blood sugar of 800. He was started on insulin drip and subsequently transferred to the [facility]. The patient did have a chest x-ray on admission that was reported to be negative. The patient was afebrile on the . However, on the , the patient did spike a fever of 100, subsequently 101 at 1600 with another fever 100.8 yesterday afternoon that prompted this infectious disease consultation. The patient did have a normal white count, though no UA has been done. The patient did have a CT of the chest completed on the shows COPD changes without evidence for suspicious nodule or mass. Patient has been evaluated by ENT with attempted examination, however, could not be completed. Subsequently the patient did have a repeat fluoroscopic swallow completed yesterday which did show evidence of aspiration. General surgery saw the patient and the patient did have a PEG tube placement. The patient's fever though has resolved as the patient has been started on Zosyn. The patient denies any headache. No URI symptoms. No chest pain. He did have shortness of breath. He did have a cough, but not bringing up any sputum. Denies any abdominal pain. No diarrhea or burning or frequency of urine. REVIEW OF SYSTEMS: CONSTITUTIONAL: Positive for weakness and fever. EYES: No complaint. ENT: No complaint. RESPIRATORY: As per HPI. CARDIOVASCULAR: No complaint. GENITOURINARY: No complaint. GASTROINTESTINAL: No complaint. MUSCULOSKELETAL: No complaint. INTEGUMENTARY: No complaint. PSYCHOLOGICAL: No complaint. ENDOCRINE: No complaint. NEUROLOGICAL: As per HPI. PAST MEDICAL HISTORY: Coronary artery disease, diabetes mellitus, hypertension, hyperlipidemia, VA. 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 PAST SURGICAL HISTORY: Cholecystectomy, PTCA with stent placement. SOCIAL HISTORY: Remote history of smoking and drinking. No drug use. FAMILY HISTORY: No pertinent findings noticed. ALLERGIES: No known drug allergies. MEDICATION: Medications include the patient is currently on Zosyn at 3.375 g q.8h, Protonix, Glucophage, 81, Imdur, Levemir, NovoLog, heparin, Vasotec, Coreg, Lipitor, DuoNeb. EXAMINATION: Blood pressure is 136/68 with a pulse of 90, temperature 98.3, T-max 100.8. General description is an elderly male lying in bed in no distress. No tachypnea or accessory muscle of respiration use. HEENT: Shows no pallor or scleral icterus. Oral mucosa membrane is moist. No pharyngeal erythema. No thrush. NECK: Trachea central. No thyromegaly. LUNGS: Unlabored breathing, decreased breath sounds at base. No wheeze or crackle. HEART: S1, S2. Regular rate and rhythm. ABDOMEN: Soft, no tenderness. No guarding and no rigidity. EXTREMITIES: No edema of feet. SKIN EXAMINATION: No rash or mass palpable. NEUROLOGIC: The patient is awake, alert. Mood and affect normal. LABS: Hemoglobin 13.2, white count 5.4, BUN of 13, creatinine 0.80. X-rays and CT scan report as mentioned above. Unfortunately, no culture has been done. DIAGNOSTIC IMPRESSION AND PLAN: Patient with a fever. The patient admitted to the hospital with elevated blood sugar and difficulty with swallowing. The patient did have previous history of vocal cord cancer. He did have a swallow evaluation which did show he did have risk of aspiration, likely suspicious for an aspiration pneumonitis with the etiology of his underlying fever. The patient abdominal soft and clinical examination no evidence of any cellulitis and no urinary symptoms. PLAN: 1. Will try to obtain sputum for Gram stain culture and sensitivity. 2. The patient spikes any further fever recommend obtaining blood cultures x2 stat. 3. We will keep the patient on Zosyn at this point, which is fever seemed to have responded. 4. Depending upon clinical response as well as culture, will adjust the medication further if needed. Thank you for this consultation. Will follow this patient along with you. MMODL / IJN: [id number] /
[2018-02-25 16:46] LABS: Glucose,Whole Blood 185 mg/dL (75-99)
[2018-02-25 21:06] LABS: Glucose,Whole Blood 190 mg/dL (75-99)
[2018-02-25] MEDS: ATORVASTATIN 10 MG TAB PO SCH (21:30)
--- NOTE | 2018-02-25 21:38 | PN ---
PROGRESS NOTE DATE OF SERVICE: 02/25/2018 77-year-old gentleman admitted with change in mental status as of dysphagia, had a PEG tube placement. The patient also has a possible transient ischemic attack. The patient failed swallow evaluation. The patient also had a fever with possibly aspiration pneumonia is being considered. Empiric antibiotics initiated. PAST MEDICAL HISTORY: Reviewed. REVIEW OF SYSTEMS: Could not be taken, the patient is still confused. CURRENT MEDICATIONS: Reviewed and include Tylenol suppository, DuoNeb q.i.d. and p.r.n., Aspirin, Lipitor, Coreg 6.25 mg b.i.d., Vasotec 6.6 mg IV q.6h., Lasix 20 mg IV daily, heparin 5000 subcu b.i.d., Novolin insulin, Levemir 45 subcu b.i.d., Imdur 30 mg daily. Ativan 0.5 mg, Protonix 40 mg IV b.i.d. and Zosyn 3.65 IV q.8h. PHYSICAL EXAM: Patient is alert, oriented x2. Pulse is 90. Blood pressure 130/68, respiration 18, temperature is normal, 98.3, pulse ox 98% on 2 L. HEENT is conjunctivae normal. Oral mucosa moist. Neck is no jugular venous distention. No carotid bruit. No lymph node enlargement. Cardiovascular system: S1, S2, no S3, no S4. RESPIRATORY: Breath sounds diminished in the bases. A few scattered rhonchi and crackles. ABDOMEN: Soft, obese, nontender. No mass palpable. Legs are no edema, no swelling. Central nervous system: Higher functions as mentioned earlier. Moves all four limbs. No focal deficits. Lymphatics: No lymph nodes palpable in the neck, axillae or groin. SKIN: No ulcers, rash or bleeding. LAB STUDIES: WBC 5.5, hemoglobin 13.2. ASSESSMENT: 1. Diabetes type 2, uncontrolled, present on admission. 2. Change in mental status, acute metabolic encephalopathy, multifactorial, present on admission. 3. Severe dysphagia with diminished p.o. intake with possible transient ischemic attack. 4. Status post PEG tube placement. 5. Hypertension. 6. Hyperlipidemia. 7. Gait dysfunction. 8. History of noncompliance. 9. Aspiration pneumonia, fever, possible. 10.History of depression. 11.History of EtOH remote. 12.History of fall and gait dysfunction. 13.NO CODE, NO CPR, NO VENT. RECOMMENDATIONS AND DISCUSSION: Recommend to continue current medications, continue monitor, symptomatic treatment. At this time I would recommend a broad-spectrum IV antibiotics. Otherwise PEG tube feeds. Head of bed elevated at 45 degrees. Aspiration precautions. Guarded prognosis because of multiple complex medical issues. Further recommendations to follow. JUVENAL / IJN: [id number] /
[2018-02-26] MEDS: ENALAPRILAT 1.25 MG/ML 1 ML VIAL IV SCH ×3 (06:07→17:50)
[2018-02-26 07:00] LABS: Glucose,Whole Blood 196 mg/dL (75-99)
[2018-02-26 07:34] LABS: Basophils % (A) 0 %; Eosinophils % (A) 0 %; HCT 34.2 % (39.0-53.0); HGB 11.6 gm/dL (13.0-17.5); Lymphocytes % (A) 20 %; MCH 31.9 pg (25.0-35.0); MCHC 33.9 g/dL (31.0-37.0); Mean Platelet Volume 9.3; Monocytes # (A) 0.3 k/uL (0-1.0); Monocytes % (A) 7 %; Neutrophils # (A) 3.6 k/uL (1.3-7.7); Neutrophils % (A) 70 %; Platelet Count 151 k/uL (150-450); Poikilocytosis Slight; RBC 3.64 m/uL (4.30-5.90); RDW 13.1 % (11.5-15.5); WBC 5.2 k/uL (3.8-10.6)
[2018-02-26 07:44] LABS: Calcium 8.7 mg/dL (8.4-10.2)
[2018-02-26] MEDS: IPRATROPIUM-ALBUTEROL 3 ML NEB INHALATION SCH ×3 (07:57→21:15)
[2018-02-26] MEDS: INSULIN DETEMIR 100 UNIT/ML 10 ML VIAL SQ SCH (09:23)
[2018-02-26] MEDS: FUROSEMIDE 10 MG/ML 2 ML VIAL IV SCH (09:24)
[2018-02-26] MEDS: CARVEDILOL 6.25 MG TAB PO SCH ×2 (09:24→20:37)
[2018-02-26] MEDS: INSULIN ASPART 100 UNIT/ML 1 ML 10 ML VIAL SQ SCH ×6 (09:24→17:49)
[2018-02-26] MEDS: ISOSORBIDE MONONITRATE ER 30 MG TAB.ER.24H PO SCH (09:24)
[2018-02-26] MEDS: ASPIRIN 81 MG PO SCH (09:24)
[2018-02-26] MEDS: metFORMIN 500 MG TAB PO SCH ×2 (09:24→20:37)
[2018-02-26] MEDS: HEPARIN SODIUM,PORCINE 5,000 UNIT/ML 1 ML VIAL SQ SCH ×2 (09:25→20:37)
[2018-02-26] MEDS: PIPERACILLIN-TAZOBACTAM 3.375 GM in DEXTROSE/WATER 1 50ML.BAG IVPB SCH ×2 (09:38→17:49)
[2018-02-26] MEDS: PANTOPRAZOLE 40 MG/10 ML VIAL IVP SCH (09:38)
[2018-02-26 11:58] LABS: Glucose,Whole Blood 160 mg/dL (75-99)
--- NOTE | 2018-02-26 14:03 | PN ---
PROGRESS NOTE DATE OF SERVICE: 02/26/2018 REASON FOR FOLLOWUP: Fever, likely aspiration pneumonia. INTERVAL HISTORY: The patient is afebrile. He has been breathing comfortably. Minimal cough, not bringing up any sputum. No chest pain. No abdominal pain. To be started on tube feed this afternoon. No diarrhea. PHYSICAL EXAMINATION: On examination, blood pressure 140/65, pulse of 72, temperature 96.3. He is 98% on room air. General description is an elderly male, lying in bed, in no distress. RESPIRATORY SYSTEM: Unlabored breathing, clear to auscultation anteriorly. HEART: S1, S2. Regular rate and rhythm ABDOMEN: Soft, no tenderness. EXTREMITIES: No edema of feet. LABS: Hemoglobin 11.6, white count 5.2, BUN of 23, creatinine 1.01. DIAGNOSTIC IMPRESSION AND PLAN: Patient with fever, source is likely aspiration pneumonia. Currently, the patient did get a PEG tube for feeding. Keep the patient on Zosyn, transitioning to oral on discharge. Continue supportive care. MMODL / IJN: [id number] /
[2018-02-26 17:29] LABS: Glucose,Whole Blood 62 mg/dL (75-99)
[2018-02-26] MEDS ORDERED: DEXTROSE 50%-WATER 50 ML SYRINGE IVP ONE (17:41)
[2018-02-26 18:22] LABS: Glucose,Whole Blood 130 mg/dL (75-99)
--- NOTE | 2018-02-26 19:36 | PN ---
PROGRESS NOTE DATE OF SERVICE: 02/26/2018 77-year-old gentleman admitted with dysphagia also had PEG tube placement. No chest pain. No palpitations. No fever. At this time the patient is still confused, sensorium is slightly more alert. PHYSICAL EXAM: Alert and oriented x1. Pulse 64, blood pressure 109/59, respirations 16, temperature 97.3, pulse ox 97% on room air. HEENT: Conjunctivae normal. Oral mucosa moist. Neck is no jugular venous distention. No lymph node enlargement. Cardiovascular System: S1, S2 muffled. Respiration : Breath sounds diminished in the bases. Scattered rhonchi and crackles. ABDOMEN: Soft. PEG tube in situ. Legs are no edema, no swelling. LABS: WBC 5, hemoglobin 7.6. ASSESSMENT: 1. Diabetes type 2, uncontrolled, present on admission. 2. Change in mental status, acute metabolic acidosis with multifactorial, present on admission. 3. Severe dysphagia with diminished p.o. intake with possible transient ischemic attack status post PEG tube placement. 4. Hypertension. 5. Hyperlipidemia. 6. Gait dysfunction. 7. History of noncompliance. 8. Aspiration, pneumonia fever, possibly. 9. History of depression. 10.History of EtOH, remote. 11.History of fall and gait dysfunction. 12.NO CODE, NO CPR, NO VENT. RECOMMENDATIONS AND DISCUSSION: I recommend to continue current meds, management and symptomatic treatment. Otherwise, continued with antibiotics. PEG tube feeds per dietitian. Aspiration precautions. Head of bed elevated to 45 degrees all the time. Further recommendations to follow. MMODL / IJN: [id number] / MTDD
[2018-02-26 20:03] LABS: Glucose,Whole Blood 88 mg/dL (75-99)
[2018-02-26] MEDS: ATORVASTATIN 10 MG TAB PO SCH (20:38)
[2018-02-26] MEDS ORDERED: INSULIN DETEMIR 100 UNIT/ML 10 ML VIAL SQ SCH (21:00)
[2018-02-27 00:01] LABS: Glucose,Whole Blood 53 mg/dL (75-99)
[2018-02-27] MEDS ORDERED: DEXTROSE 50%-WATER 50 ML SYRINGE IVP ONE (00:07)
[2018-02-27] MEDS: SODIUM CHLORIDE 0.9% 1,000 ML IV SCH ×2 (00:13→18:37)
[2018-02-27] MEDS ORDERED: DEXTROSE 5% IN WATER 1,000 ML IV SCH (00:15)
[2018-02-27] MEDS: PIPERACILLIN-TAZOBACTAM 3.375 GM in DEXTROSE/WATER 1 50ML.BAG IVPB SCH ×3 (00:30→15:49)
[2018-02-27 00:33] LABS: Glucose,Whole Blood 164 mg/dL (75-99)
[2018-02-27] MEDS: ENALAPRILAT 1.25 MG/ML 1 ML VIAL IV SCH ×4 (00:34→18:02)
[2018-02-27] MEDS: INSULIN ASPART 100 UNIT/ML 1 ML 10 ML VIAL SQ SCH ×4 (00:34→18:41)
[2018-02-27 05:31] LABS: Glucose,Whole Blood 126 mg/dL (75-99)
[2018-02-27] MEDS: ACETAMINOPHEN TAB 325 MG TAB PEG/G-TUBE PRN ×2 (06:24→21:53)
[2018-02-27 07:41] LABS: Basophils % (A) 0 %; Eosinophils % (A) 1 %; HCT 36.4 % (39.0-53.0); HGB 12.1 gm/dL (13.0-17.5); Lymphocytes # (A) 1.4 k/uL (1.0-4.8); Lymphocytes % (A) 24 %; MCH 31.3 pg (25.0-35.0); MCHC 33.2 g/dL (31.0-37.0); MCV 94.3 fL (80.0-100.0); Mean Platelet Volume 8.9; Monocytes # (A) 0.5 k/uL (0-1.0); Monocytes % (A) 9 %; Neutrophils # (A) 3.8 k/uL (1.3-7.7); Neutrophils % (A) 65 %; Platelet Count 173 k/uL (150-450); Poikilocytosis Slight; RBC 3.86 m/uL (4.30-5.90); RDW 13.2 % (11.5-15.5); WBC 5.9 k/uL (3.8-10.6)
[2018-02-27 07:55] LABS: Anion Gap 15 mmol/L; Blood Urea Nitrogen 22 mg/dL (9-20); Calcium 8.9 mg/dL (8.4-10.2); Carbon Dioxide 27 mmol/L (22-30); Chloride 104 mmol/L (98-107); Glucose 134 mg/dL (74-99); Potassium 3.1 mmol/L (3.5-5.1); Sodium 146 mmol/L (137-145)
[2018-02-27] MEDS: IPRATROPIUM-ALBUTEROL 3 ML NEB INHALATION SCH ×3 (08:47→21:00)
[2018-02-27] MEDS ORDERED: PROPOFOL 10 MG/ML 20 ML VIAL IV ONE (09:19)
[2018-02-27] MEDS ORDERED: LIDOCAINE 1% INJ 10MG/ML (20 ML MDV) ONE (09:19)
[2018-02-27] MEDS ORDERED: DEXAMETHASONE SOD PHOS (MDV) 100 MG/10 ML VIAL ONE (09:19)
[2018-02-27] MEDS: metFORMIN 500 MG TAB PO SCH ×2 (09:50→21:53)
[2018-02-27] MEDS: ASPIRIN 81 MG PO SCH (09:50)
[2018-02-27] MEDS: CARVEDILOL 6.25 MG TAB PO SCH ×2 (09:51→21:54)
[2018-02-27] MEDS: HEPARIN SODIUM,PORCINE 5,000 UNIT/ML 1 ML VIAL SQ SCH ×2 (09:51→21:55)
[2018-02-27] MEDS: PANTOPRAZOLE 40 MG/10 ML VIAL IVP SCH (09:51)
[2018-02-27] MEDS: ISOSORBIDE MONONITRATE ER 30 MG TAB.ER.24H PO SCH (09:51)
[2018-02-27] MEDS: FUROSEMIDE 10 MG/ML 2 ML VIAL IV SCH (10:14)
[2018-02-27 12:12] LABS: Glucose,Whole Blood 172 mg/dL (75-99)
[2018-02-27] MEDS ORDERED: POTASSIUM CHLORIDE ER 20 MEQ TAB.ER PO STA (14:55)
--- NOTE | 2018-02-27 17:07 | PN ---
PROGRESS NOTE DATE OF SERVICE: 02/27/2018 This 77-year-old gentleman who was admitted with diabetes mellitus, type 2, uncontrolled, also had change in mental status. Patient had a PEG tube because of severe dysphagia. No chest pain. No palpitations. No fever. On exam, alert and oriented x2. Pulse is 72, blood pressure 130/60, respiration 18, temperature 97 degrees, pulse ox 94% on room air. HEENT: Conjunctivae normal. NECK: No jugular venous distention. CARDIOVASCULAR SYSTEM: S1, S2 muffled. RESPIRATORY SYSTEM: Breath sounds diminished at the bases. No rhonchi. No crackles. ABDOMEN: Soft. PEG tube in situ. NERVOUS SYSTEM: No focal deficit. LABS: WBC 5.9, hemoglobin 12.1, sodium 146, potassium 3.1. ASSESSMENT: 1. Diabetes mellitus, type 2, uncontrolled, present on admission. 2. Change in mental status, acute metabolic encephalopathy, multifactorial, present on admission. 3. Severe dysphagia with diminished p.o. intake with possible transient ischemic attack, status post PEG tube placement. 4. Tube feeds. 5. Hypertension. 6. Hypokalemia. 7. Hyperlipidemia. 8. Gait dysfunction. 9. History of noncompliance. 10.Aspiration pneumonia with fever possibly. 11.History of depression. 12.History of ethanol, remote. 13.History of fall and gait dysfunction. 14.NO CODE, NO CPR, NO VENT. RECOMMENDATIONS AND DISCUSSION: I recommend to continue current medication, continue with monitoring, symptomatic treatment. Monitor electrolytes closely. Continue the antibiotics. Aspiration precaution. Discussed with family. Otherwise, possible ECF rehab. Further recommendations to follow. MMODL / IJN: [id number] /
[2018-02-27 17:08] LABS: Glucose,Whole Blood 183 mg/dL (75-99)
[2018-02-27] MEDS: ATORVASTATIN 10 MG TAB PO SCH (21:53)
--- NOTE | 2018-02-27 23:19 | PN ---
PROGRESS NOTE DATE OF SERVICE: 02/27/2018. REASON FOR FOLLOWUP: Aspiration pneumonia. INTERVAL HISTORY: The patient is afebrile. He has been breathing comfortably. He has been starting to improve. Has been tolerating. He denies having chest pain. Cough has decreased in intensity. No nausea, vomiting. No diarrhea. EXAMINATION: Blood pressure is 134/55 with a pulse of 72, temperature 97.2. He is 95% on room air. General description is an elderly male lying in bed in no distress. RESPIRATORY SYSTEM: Unlabored breathing with decreased breath sounds at bases. No wheeze. HEART: S1, S2. Regular rate and rhythm. ABDOMEN: Soft. No tenderness. LABS: Hemoglobin is 12.1, white count 5.9 with a BUN of 22, creatinine 0.91. DIAGNOSTIC IMPRESSION AND PLAN: Patient with a fever, source is likely recurrent aspiration pneumonia, status post percutaneous endoscopic gastrostomy tube placement. His fever has resolved. He is currently on Zosyn. Transition to oral at time of discharge. Continue with supportive care. MMODL / IJN: [id number] /
[2018-02-28 00:18] LABS: Glucose,Whole Blood 261 mg/dL (75-99)
[2018-02-28] MEDS: ENALAPRILAT 1.25 MG/ML 1 ML VIAL IV SCH ×5 (00:44→23:59)
[2018-02-28] MEDS: INSULIN ASPART 100 UNIT/ML 1 ML 10 ML VIAL SQ SCH ×4 (01:08→18:03)
[2018-02-28] MEDS: PIPERACILLIN-TAZOBACTAM 3.375 GM in DEXTROSE/WATER 1 50ML.BAG IVPB SCH ×3 (01:08→15:55)
[2018-02-28] MEDS ORDERED: FUROSEMIDE 10 MG/ML 4 ML VIAL IV STA (05:10)
--- NOTE | 2018-02-28 06:31 | XR ---
EXAMINATION TYPE: XR chest 1V portable DATE OF EXAM: 02/28/2018 HISTORY: increased cough, sob. REFERENCE: Previous study dated 02/23/2018. FINDINGS: The lungs are clear. Pleural space are clear. Heart size is upper limits of normal. IMPRESSION: NO ACUTE INTRATHORACIC ABNORMALITY.
[2018-02-28 06:38] LABS: Glucose,Whole Blood 295 mg/dL (75-99)
[2018-02-28 07:02] LABS: Basophils % (A) 1 %; Eosinophils % (A) 1 %; HCT 35.3 % (39.0-53.0); Lymphocytes # (A) 1.3 k/uL (1.0-4.8); Lymphocytes % (A) 25 %; MCH 31.5 pg (25.0-35.0); MCHC 34.1 g/dL (31.0-37.0); MCV 92.2 fL (80.0-100.0); Mean Platelet Volume 8.5; Monocytes # (A) 0.6 k/uL (0-1.0); Monocytes % (A) 11 %; Neutrophils # (A) 3.1 k/uL (1.3-7.7); Neutrophils % (A) 61 %; Platelet Count 154 k/uL (150-450); RBC 3.83 m/uL (4.30-5.90); WBC 5.2 k/uL (3.8-10.6)
[2018-02-28 07:13] LABS: Anion Gap 13 mmol/L; Blood Urea Nitrogen 17 mg/dL (9-20); Calcium 8.9 mg/dL (8.4-10.2); Carbon Dioxide 28 mmol/L (22-30); Chloride 100 mmol/L (98-107); Glucose 258 mg/dL (74-99); Potassium 3.5 mmol/L (3.5-5.1); Sodium 141 mmol/L (137-145)
[2018-02-28] MEDS: IPRATROPIUM-ALBUTEROL 3 ML NEB INHALATION SCH ×3 (07:41→20:35)
[2018-02-28] MEDS: HEPARIN SODIUM,PORCINE 5,000 UNIT/ML 1 ML VIAL SQ SCH ×2 (09:27→20:55)
[2018-02-28] MEDS: PANTOPRAZOLE 40 MG/10 ML VIAL IVP SCH (09:27)
[2018-02-28] MEDS: ACETAMINOPHEN TAB 325 MG TAB PEG/G-TUBE PRN (09:28)
[2018-02-28] MEDS: ASPIRIN 81 MG PO SCH (09:33)
[2018-02-28] MEDS: ISOSORBIDE MONONITRATE ER 30 MG TAB.ER.24H PO SCH (09:33)
[2018-02-28] MEDS: metFORMIN 500 MG TAB PO SCH ×2 (09:33→20:55)
[2018-02-28] MEDS: CARVEDILOL 6.25 MG TAB PO SCH ×2 (09:33→20:55)
[2018-02-28] MEDS: FUROSEMIDE 10 MG/ML 2 ML VIAL IV SCH (09:35)
[2018-02-28] MEDS: KETOROLAC 30 MG/ML 1 ML VIAL IVP PRN (11:03)
[2018-02-28 11:11] LABS: Glucose,Whole Blood 241 mg/dL (75-99)
[2018-02-28] MEDS: INSULIN DETEMIR 100 UNIT/ML 10 ML VIAL SQ SCH ×2 (12:14→20:55)
[2018-02-28] MEDS: SODIUM CHLORIDE 0.9% 1,000 ML IV SCH (12:17)
--- NOTE | 2018-02-28 12:47 | PN ---
PROGRESS NOTE DATE OF SERVICE: 02/28/2018. INTERVAL HISTORY: This 77-year-old gentleman admitted with uncontrolled diabetes mellitus also had change in mental status. Patient had PEG tube placement. Last night the patient had significant shortness of breath and frothy sputum, possibly CHF was suspected and the patient was given IV Lasix and possible aspiration also considered. Patient improved significantly. Patient being closely monitored. PEG tube has been restarted. Blood sugar has been fluctuating also. PAST MEDICAL HISTORY: Reviewed. REVIEW OF SYSTEMS: CARDIOVASCULAR: No angina. RESPIRATION: As mentioned earlier. GI. No swelling. : As mentioned earlier. NERVOUS SYSTEM: Diffusely weak. CURRENT MEDICATIONS: Reviewed and include: 1. Tylenol 650 q.6h p.r.n. 2. DuoNeb q.i.d. and p.r.n. 3. Aspirin 81 mg. 4. Lipitor 10 mg q.h.s. 5. Coreg 6.25 mg p.o. b.i.d. 6. Vasotec 160 mg q.6h p.r.n. 7. Lasix. 8. NovoLog. 9. Levemir 22 units subcu b.i.d. 10.Toradol. 11.Glucophage. PHYSICAL EXAM: Patient is alert, oriented x3. The pulse is 70, blood pressure is 140/60, respirations 16, temperature 98.2, pulse ox 97% on 2 L. HEENT: Conjunctivae normal. Oral mucosa moist. NECK: No jugular venous distention. No carotid bruit. No lymph node enlargement. CARDIOVASCULAR: S1, S2. RESPIRATORY: Breath sounds diminished in the bases. Scattered rhonchi and crackles. ABDOMEN: Soft, status post PEG tube. LEGS: No edema. NERVOUS SYSTEM: No focal deficits. LAB STUDIES: WBC 5, hemoglobin 12, Accu-Cheks 295. ASSESSMENT: 1. Diabetes mellitus type 2, uncontrolled, present on admission. 2. Change in mental status, acute metabolic encephalopathy, multifactorial, present on admission. 3. Severe dysphagia with diminished p.o. intake with possible transient ischemic attack, status post PEG tube placement. 4. Frothy sputum with possible episode of aspiration and aspiration pneumonia. 5. On tube feeds. 6. Hypertension. 7. Hypokalemia. 8. Hyperlipidemia. 9. Gait dysfunction. 10.History of noncompliance. 11.History of depression. 12.History of EtOH. 13.History fall and gait dysfunction. 14.NO CODE, NO CPR, NO VENT. RECOMMENDATIONS AND DISCUSSION: I recommend to continue current management and symptomatic treatment. Monitor blood sugars closely. Will stop IV fluids and resume the hospital dose of insulin and broad- spectrum IV antibiotics, bronchodilators. Oxygenation is maintained. PT, OT evaluation. Possible ECF rehab. Further recommendations to follow. JUVENAL / PHILIPPN: [id number] /
[2018-02-28 17:03] LABS: Glucose,Whole Blood 193 mg/dL (75-99)
[2018-02-28] MEDS: ATORVASTATIN 10 MG TAB PO SCH (20:55)
[2018-02-28] MEDS: AMOXIC-POT CLAV 875-125MG 1 EACH TAB PEG/G-TUBE SCH (20:55)
--- NOTE | 2018-02-28 22:44 | PN ---
PROGRESS NOTE DATE OF SERVICE: 02/28/2018. REASON FOR FOLLOWUP: Aspiration pneumonia. INTERVAL HISTORY: The patient is afebrile, has been breathing comfortably, hemodynamically stable. Denies significant chest pain or cough. No abdominal pain or any diarrhea. EXAMINATION: Blood pressure 99/61 with a pulse of 68, temperature 97.9, he is 93% on room air. GENERAL DESCRIPTION: An elderly male lying in bed in no distress. RESPIRATORY: Unlabored breathing. Decreased breath sounds in the bases. No wheeze. HEART: Regular rate and rhythm. LABS: Hemoglobin 12.1, white count 5.2, BUN of 15, creatinine 0.70. DIAGNOSTIC IMPRESSION AND PLAN: Patient with fever, source likely aspiration pneumonia. Repeat x-ray showing overall improvement. Antibiotic will be adjusted to Augmentin down the PEG tube for another 5 to 7 days to finish course of therapy. Continue supportive care. MMODL / IJN: [id number] /
[2018-03-01] MEDS: INSULIN ASPART 100 UNIT/ML 1 ML 10 ML VIAL SQ SCH ×4 (00:06→18:06)
[2018-03-01 00:15] LABS: Glucose,Whole Blood 176 mg/dL (75-99)
[2018-03-01 05:56] LABS: Glucose,Whole Blood 188 mg/dL (75-99)
[2018-03-01] MEDS: ENALAPRILAT 1.25 MG/ML 1 ML VIAL IV SCH ×3 (05:59→17:26)
[2018-03-01] MEDS: IPRATROPIUM-ALBUTEROL 3 ML NEB INHALATION SCH ×3 (07:22→19:30)
[2018-03-01] MEDS: ISOSORBIDE MONONITRATE ER 30 MG TAB.ER.24H PO SCH (08:11)
[2018-03-01] MEDS: ASPIRIN 81 MG PO SCH (08:11)
[2018-03-01] MEDS: metFORMIN 500 MG TAB PO SCH ×2 (08:11→22:07)
[2018-03-01] MEDS: CARVEDILOL 6.25 MG TAB PO SCH ×2 (08:11→22:07)
[2018-03-01] MEDS: AMOXIC-POT CLAV 875-125MG 1 EACH TAB PEG/G-TUBE SCH ×2 (08:11→22:07)
[2018-03-01] MEDS: HEPARIN SODIUM,PORCINE 5,000 UNIT/ML 1 ML VIAL SQ SCH ×2 (08:12→22:07)
[2018-03-01] MEDS: INSULIN DETEMIR 100 UNIT/ML 10 ML VIAL SQ SCH ×2 (08:54→22:07)
[2018-03-01] MEDS: PANTOPRAZOLE 40 MG/10 ML VIAL IVP SCH (10:54)
[2018-03-01] MEDS: FUROSEMIDE 10 MG/ML 2 ML VIAL IV SCH (10:54)
[2018-03-01] MEDS: SODIUM CHLORIDE 0.9% 1,000 ML IV SCH (10:54)
--- NOTE | 2018-03-01 11:57 | DS ---
DISCHARGE SUMMARY FINAL DIAGNOSES: 1. Diabetes mellitus type 2, uncontrolled, present on admission. 2. Change in mental status with acute metabolic encephalopathy, multifactorial, present on admission. 3. Severe dysphagia with diminished p.o. intake with possible acute transient ischemic attack, status post PEG tube placement. 4. Frothy sputum with possible episode of aspiration and aspiration pneumonia. 5. On tube feeds. 6. Hypertension. 7. Hypokalemia. 8. Hyperlipidemia. 9. Gait dysfunction. 10.History of noncompliance. 11.History of depression. 12.History of EtOH. 13.History of fall and gait dysfunction. 14.No code, no cardiopulmonary resuscitation, no ventilator. DISCHARGE DISPOSITION: Patient will be discharged in a stable condition with guarded prognosis. Total time taken 35 minutes. HISTORY OF PRESENT ILLNESS: This is a 77-year-old gentleman with a past medical history initially admitted with uncontrolled diabetes mellitus, subsequently patient had change in mental status, dysphagia, possible TIA was suspected. patient had PEG tube feeds. Patient also had episode of aspiration, improved significantly. On exam, vital signs are stable. CARDIOVASCULAR: S1, S2. RESPIRATION: A few rhonchi. ABDOMEN: Soft, PEG tube in situ. Patient will; be discharged in a stable condition with guarded prognosis with the following advice and medications: 1. Diet is n.p.o. for now. 2. PEG tube feeds. 3. Aspiration precautions. 4. Head of the bed elevated to 45 degrees all the time. 5. Free water H2O 50 mL q.6. 6. MEDICATIONS: Tylenol 650 per PEG t.i.d. p.r.n. 7. Augmentin 875 mg syrup b.i.d. per PEG for 10 days. 8. Ecotrin 81 mg p.o. daily. 9. Multivitamins 5 mL p.o. per PEG daily. 10.Coreg 6.25 mg per PEG b.i.d. 11.Lasix 20 mg per PEG daily/. 12.NovoLog scale. Accu-Cheks a.c. and at bedtime and NovoLog scale 150 to 200 = 2 units, 201 to 250 = 4 units, 251 to 300 = 6 units, 301 to 350 = 8 units, 351 to 400 = 10 units, more than 400 call. 13.NovoLog 5 units a.c. t.i.d. and hold with Accu-Cheks less than 120. 14.Lantus 30 units subcu b.i.d. hold if Accu-Cheks less than 120, to be adjusted in the outpatient setting. 15.DuoNeb q.i.d. and p.r.n. 16.Imdur ER 30 mg p.o. daily. 17.Prinivil 5 mg p.o. daily. 18.Metformin 1000 mg p.o. b.i.d. 19.Prilosec 20 mg p.o. daily. 20.Zocor 20 mg q.h.s. MMODL / IJN: [id number] /
[2018-03-01 11:59] LABS: Glucose,Whole Blood 215 mg/dL (75-99)
--- NOTE | 2018-03-01 12:27 | PN ---
PROGRESS NOTE DATE OF SERVICE: 03/01/2018 REASON FOR FOLLOWUP: Fever, likely aspiration pneumonia. INTERVAL HISTORY: The patient is afebrile, he is breathing more comfortably, denies having any chest pain. Occasional cough. No abdominal pain. No nausea, vomiting or diarrhea. PHYSICAL EXAMINATION: Blood pressure 133/63 with a pulse of 70, temperature 97.9. He is 93% on room air. General description is an elderly male up in the chair, in no distress. RESPIRATORY SYSTEM: Unlabored breathing with decreased breath sounds at the base, no wheeze. HEART: S1, S2. Regular rate and rhythm. ABDOMEN: Soft, nontender. LABS: No new labs have been obtained today. DIAGNOSTIC IMPRESSION AND PLAN: Patient with fever, source is likely aspiration pneumonia. Plan to finish therapy with oral Augmentin for another 4-5 days to finish a course of therapy. Continue supportive care. MMODL / IJN: [id number] /
--- NOTE | 2018-03-01 15:09 | PN ---
PROGRESS NOTE DATE OF SERVICE: 03/01/2018. HISTORY: This 77-year-old gentleman was admitted with diabetes uncontrolled with change in mental status. PEG tube feeds also. The social service technician/correctional counselor/case manager is toward ECF rehab. EXAM: Alert and oriented x2. Pulse 68, blood pressure 133/63, respirations 16, temperature 97.9, pulse ox 98% room air. HEENT: Conjunctivae normal. NECK: Supple. CARDIOVASCULAR: S1 and S2 muffled. RESPIRATORY: Breath sounds diminished in the bases. Few scattered rhonchi. ABDOMEN: Soft. NERVOUS SYSTEM: No focal deficits. LABS: WBC 5, hemoglobin 12, Accu-Cheks noted. ASSESSMENT: 1. Diabetes type 2, uncontrolled, present on admission. 2. Change in mental status with acute metabolic encephalopathy, multifactorial, present on admission. 3. Severe dysphagia with diminished p.o. intake with possible acute TIA, status post PEG tube placement. 4. Frothy sputum and possible episode of aspiration pneumonia, on tube feeds. 5. Hypertension. 6. Hyperkalemia. 7. Hyperlipidemia. 8. Gait dysfunction. 9. Noncompliance. 10.History of depression. 11.History EtOH. 12.History of fall and gait dysfunction. 13.NO CODE, NO CPR, NO VENT. RECOMMENDATIONS AND DISCUSSION: I recommend to continue current management. Symptomatic treatment. Otherwise at this time I recommend continue with bronchodilators. Continue with current medications. Continue with symptomatic treatment. PT, OT and Social Work and Case Management to work toward ECF rehab. Aspiration precautions. Tube feeds. Further recommendation to follow. MMODL / IJN: [id number] /
[2018-03-01] MEDS: ACETAMINOPHEN TAB 325 MG TAB PEG/G-TUBE PRN (17:08)
[2018-03-01 18:05] LABS: Glucose,Whole Blood 241 mg/dL (75-99)
[2018-03-01] MEDS: ATORVASTATIN 10 MG TAB PO SCH (22:07)
[2018-03-01 23:51] LABS: Glucose,Whole Blood 261 mg/dL (75-99)
[2018-03-02] MEDS: ENALAPRILAT 1.25 MG/ML 1 ML VIAL IV SCH ×5 (00:15→23:00)
[2018-03-02] MEDS: INSULIN ASPART 100 UNIT/ML 1 ML 10 ML VIAL SQ SCH ×4 (01:22→17:41)
[2018-03-02] MEDS: ACETAMINOPHEN TAB 325 MG TAB PEG/G-TUBE PRN ×3 (03:35→20:41)
[2018-03-02] MEDS: SODIUM CHLORIDE 0.9% 1,000 ML IV SCH (06:26)
[2018-03-02 06:30] LABS: Glucose,Whole Blood 220 mg/dL (75-99)
[2018-03-02] MEDS: AMOXIC-POT CLAV 875-125MG 1 EACH TAB PEG/G-TUBE SCH ×2 (08:40→20:28)
[2018-03-02] MEDS: ASPIRIN 81 MG PO SCH (08:40)
[2018-03-02] MEDS: INSULIN DETEMIR 100 UNIT/ML 10 ML VIAL SQ SCH ×3 (08:40→21:16)
[2018-03-02] MEDS: metFORMIN 500 MG TAB PO SCH ×2 (08:41→20:27)
[2018-03-02] MEDS: HEPARIN SODIUM,PORCINE 5,000 UNIT/ML 1 ML VIAL SQ SCH ×2 (08:41→20:27)
[2018-03-02] MEDS: ISOSORBIDE MONONITRATE ER 30 MG TAB.ER.24H PO SCH (08:41)
[2018-03-02] MEDS: CARVEDILOL 6.25 MG TAB PO SCH ×2 (08:41→20:28)
[2018-03-02] MEDS: PANTOPRAZOLE 40 MG/10 ML VIAL IVP SCH (08:42)
[2018-03-02] MEDS: FUROSEMIDE 20 MG TAB PO SCH (08:44)
[2018-03-02] MEDS: IPRATROPIUM-ALBUTEROL 3 ML NEB INHALATION SCH ×3 (08:46→20:10)
[2018-03-02 11:51] LABS: Glucose,Whole Blood 212 mg/dL (75-99)
--- NOTE | 2018-03-02 16:19 | PN ---
PROGRESS NOTE DATE OF SERVICE: 03/02/2018. REASON FOR FOLLOWUP: Aspiration pneumonia. INTERVAL HISTORY: The patient is afebrile. He is currently waiting for the insurance authorization for his transfer to the rehab. The patient denies having any chest pain, shortness of breath, cough. No abdominal pain or history of any diarrhea. EXAMINATION: Blood pressure is 152/68 with a pulse of 74, temperature 97.5. He is 93% on room air. General description is an elderly male lying in bed in no distress. RESPIRATORY SYSTEM: Unlabored breathing, decreased in the bases. No wheeze. HEART: S1, S2. Regular rate and rhythm. ABDOMEN: Soft, no tenderness. LABS: No new labs have been obtained today. DIAGNOSTIC IMPRESSION AND PLAN: Patient with a fever, source is likely aspiration pneumonia. The patient is currently on oral Augmentin, continue for about 5 days. Physical therapy. Continue supportive care. MMODL / IJN: [id number] /
[2018-03-02 17:09] LABS: Glucose,Whole Blood 202 mg/dL (75-99)
[2018-03-02] MEDS: ATORVASTATIN 10 MG TAB PO SCH (20:27)
[2018-03-02 23:57] LABS: Glucose,Whole Blood 192 mg/dL (75-99)
[2018-03-03] MEDS: INSULIN ASPART 100 UNIT/ML 1 ML 10 ML VIAL SQ SCH ×4 (00:28→19:34)
[2018-03-03] MEDS: SODIUM CHLORIDE 0.9% 1,000 ML IV SCH ×2 (04:05→21:54)
[2018-03-03 05:36] LABS: Glucose,Whole Blood 223 mg/dL (75-99)
[2018-03-03] MEDS: ENALAPRILAT 1.25 MG/ML 1 ML VIAL IV SCH ×4 (06:19→23:04)
[2018-03-03] MEDS: ISOSORBIDE MONONITRATE ER 30 MG TAB.ER.24H PO SCH (07:10)
[2018-03-03] MEDS: AMOXIC-POT CLAV 875-125MG 1 EACH TAB PEG/G-TUBE SCH ×2 (07:10→22:08)
[2018-03-03] MEDS: FUROSEMIDE 20 MG TAB PO SCH (07:10)
[2018-03-03] MEDS: metFORMIN 500 MG TAB PO SCH ×2 (07:10→22:08)
[2018-03-03] MEDS: PANTOPRAZOLE 40 MG/10 ML VIAL IVP SCH ×2 (07:11→08:08)
[2018-03-03] MEDS: CARVEDILOL 6.25 MG TAB PO SCH ×2 (07:11→22:07)
[2018-03-03] MEDS: ASPIRIN 81 MG PO SCH (07:11)
[2018-03-03] MEDS: IPRATROPIUM-ALBUTEROL 3 ML NEB INHALATION SCH ×3 (08:33→20:12)
[2018-03-03] MEDS: INSULIN DETEMIR 100 UNIT/ML 10 ML VIAL SQ SCH ×2 (08:41→22:07)
[2018-03-03] MEDS: HEPARIN SODIUM,PORCINE 5,000 UNIT/ML 1 ML VIAL SQ SCH ×2 (08:42→22:07)
[2018-03-03 11:25] VITALS: BMI 20.3
--- NOTE | 2018-03-03 11:50 | PN ---
PROGRESS NOTE DATE OF SERVICE: 03/03/2018 REASON FOR FOLLOWUP: Aspiration pneumonia. INTERVAL HISTORY: The patient is afebrile. He is currently breathing comfortably, is waiting for placement. Denies having any chest pain, shortness of breath or cough. No abdominal pain. Has been tolerating his tube feeds. No diarrhea. PHYSICAL EXAMINATION: On examination, blood pressure 152/69, pulse of 84, temperature 98.2. He is 95% on room air. General description is an elderly male lying in bed in no distress. RESPIRATORY SYSTEM: Unlabored breathing, clear to auscultation anteriorly. HEART: S1, S2. Regular rate and rhythm. ABDOMEN: Soft, no tenderness. EXTREMITIES: No edema of feet. LABS: No new labs have been obtained today. DIAGNOSTIC IMPRESSION AND PLAN: Patient with a fever, source is likely aspiration pneumonia. The patient did have evidence of aspiration, status post PEG tube placement for feeding. He is currently on Augmentin. To continue for another 3 to 5 days to finish course of therapy. Continue with supportive care. MMODL / IJN: [id number] /
[2018-03-03] MEDS: ACETAMINOPHEN TAB 325 MG TAB PEG/G-TUBE PRN (12:00)
[2018-03-03 12:51] LABS: Glucose,Whole Blood 257 mg/dL (75-99)
--- NOTE | 2018-03-03 14:26 | P.PN ---
Subjective 77 years old male with past medical history of CAD, DM, hyperlipidemia, hypertension, kidney stone, pink vocal cord cancer and who presents because of change in mental status and slurred speech pressures while evaluation showing dysphagia, patient status post PEG tube placement with no problems. CT chest was done which shows CO2 changes, CT of the brain showing age-related atrophic changes while carotid Doppler and shows no significant hemodynamic cold stenosis. 2-D echo with Doppler with ejection fraction 50-54 normal axis On 03/03/2018 patient mental status is at baseline and is alert awake oriented 3. He is making logic conversation. Patient states his back to his baseline and he is ready for discharge Objective - Vital Signs Vital signs: Vital Signs Temp 98.2 F 03/03/18 07:58 Pulse 80 03/03/18 13:00 Resp 16 03/03/18 08:00 BP 152/69 03/03/18 07:58 Pulse Ox 95 03/03/18 08:33 Intake & Output 03/02/18 03/03/18 03/03/18 18:59 06:59 18:59 Intake Total 1050 900 Output Total 2 603 Balance -2 1050 297 Weight 72 kg Intake: Oral 0 Tube Feeding 1050 900 Output: Urine 600 Stool 2 3 Other: Voiding Method Urinal Urinal Urinal Diaper Diaper Diaper Incontinent Incontinent Incontinent # Voids 4 2 # Bowel Movements 1 2 - Exam Constitutional: No acute distress, conversant, pleasant Eyes: Anicteric sclerae, moist conjunctiva, no lid-lag PERRLA ENMT: NC/AT Oropharynx clear, no erythema, exudates Neck: Supple, FROM, no masses, or JVD No carotid bruits No thyromegaly Lungs: Clear to auscultation Clear to percussion Normal respiratory effort, no accessory muscle use Cardiovascular: Heart regular in rate and rhythm, No murmurs, gallops, or rubs No peripheral edema Abdominal: Soft Nontender, no guarding, rebound or rigidity Abdomen moving with respiration Normoactive bowel sounds No hepatomegaly, No splenomegaly PEG tube in a Place, no signs symptoms of inflammation No abdominal wall hernia noted Skin: Normal temperature, tone, texture, turgor No induration No subcutaneous nodules No rash, lesions No ulcers Extremities: No digital cyanosis No clubbing Pedal pulses intact and symmetrical Radial pulses intact and symmetrical Normal gait and station No calf tenderness Psychiatric: Alert and oriented to person, place and time Appropriate affect Intact judgement Neuro: Muscles Strength 5/5 in all 4 extremities Sensation to light touch grossly present throughout Cranial nerves II-XII grossly intact No focal sensory deficits - Labs CBC & Chem 7: 02/28/18 06:32 02/28/18 06:32 Labs: Abnormal Lab Results - Last 24 Hours (Table) 03/02/18 03/02/18 03/03/18 Range/Units 17:04 23:57 05:35 POC Glucose (mg/dL) 202 H 192 H 223 H (75-99) mg/dL 03/03/18 Range/Units 12:48 POC Glucose (mg/dL) 257 H (75-99) mg/dL Assessment and Plan Assessment: -DM type II, uncontrolled -Delirium, mostly due to acute metabolic encephalopathy, resulting -Dysphagia, could be related to TIA/stroke -Hypertension -Hyperlipidemia -Possible aspiration pneumonia with fever -History of depression -History of presternal abuse, remote -History of fall Plan: Patient to continue with the current medication and symptomatic management, patient to continue on antibiotic with ID recommendation for 3-5 more days on discharge. His insulin limits on the high side more than 200 most of the time, his Levemir insulin dose was increased from 22 units to 24 units twice a day Patient is medically stable for discharge once placement issue is resolved
[2018-03-03 18:22] LABS: Glucose,Whole Blood 284 mg/dL (75-99)
[2018-03-03] MEDS: KETOROLAC 30 MG/ML 1 ML VIAL IVP PRN (22:06)
[2018-03-03] MEDS: ATORVASTATIN 10 MG TAB PO SCH (22:07)
[2018-03-04 00:03] LABS: Glucose,Whole Blood 201 mg/dL (75-99)
[2018-03-04] MEDS: INSULIN ASPART 100 UNIT/ML 1 ML 10 ML VIAL SQ SCH ×4 (00:17→17:44)
[2018-03-04] MEDS: ENALAPRILAT 1.25 MG/ML 1 ML VIAL IV SCH ×3 (04:09→17:41)
[2018-03-04 05:36] LABS: Glucose,Whole Blood 214 mg/dL (75-99)
[2018-03-04] MEDS: KETOROLAC 30 MG/ML 1 ML VIAL IVP PRN (05:50)
[2018-03-04] MEDS: IPRATROPIUM-ALBUTEROL 3 ML NEB INHALATION SCH ×3 (07:52→19:25)
[2018-03-04] MEDS: HEPARIN SODIUM,PORCINE 5,000 UNIT/ML 1 ML VIAL SQ SCH ×2 (08:44→20:37)
[2018-03-04] MEDS: ASPIRIN 81 MG PO SCH (08:44)
[2018-03-04] MEDS: FUROSEMIDE 20 MG TAB PO SCH (08:44)
[2018-03-04] MEDS: CARVEDILOL 6.25 MG TAB PO SCH ×2 (08:44→20:37)
[2018-03-04] MEDS: metFORMIN 500 MG TAB PO SCH ×2 (08:44→20:37)
[2018-03-04] MEDS: PANTOPRAZOLE 40 MG/10 ML VIAL IVP SCH (08:44)
[2018-03-04] MEDS: AMOXIC-POT CLAV 875-125MG 1 EACH TAB PEG/G-TUBE SCH ×2 (08:45→20:37)
[2018-03-04] MEDS: ISOSORBIDE MONONITRATE ER 30 MG TAB.ER.24H PO SCH (08:45)
[2018-03-04] MEDS: INSULIN DETEMIR 100 UNIT/ML 10 ML VIAL SQ SCH ×2 (08:45→20:38)
[2018-03-04 08:54] VITALS: RESP 16
--- NOTE | 2018-03-04 10:10 | P.DS ---
Providers Date of admission: 02/22/18 22:07 Attending physician: Bebeto Galvan Consults: 02/23/18 00:06 Consult Physician Stat Consulting Provider: Kierra Barillas Consult Reason/Comments: rule out CVA Do you want consulting provider notified?: Yes 02/23/18 00:42 Consult Physician Routine Consulting Provider: Hiwot Combs Consult Reason/Comments: altered mental status Do you want consulting provider notified?: Yes 02/23/18 10:00 Consult Physician Urgent Consulting Provider: Ernesto Loco Consult Reason/Comments: voice changes, no swallow reflex, history of throat cancer Do you want consulting provider notified?: Yes 02/24/18 16:16 Consult Physician Routine Consulting Provider: Alhaji Hope Consult Reason/Comments: fever Do you want consulting provider notified?: Yes Primary care physician: Stated None Hospital Course: 77 years old male with past medical history of CAD, DM, hyperlipidemia, hypertension, kidney stone, vocal cord cancer and who presents because of change in mental status, he was found to have high sugar of 800 and more, there was suspicion of not taking his medication so psych service has been called and they cleared him however patient denies to me refusing to take his medication before or currently, patient was penetrated with insulin as his sugar is controlled currently. Neurologist evaluated patient for AMS, EEG showing normal activity. CT chest was done which shows CO2 changes, CT of the brain showing age-related atrophic changes while carotid Doppler and shows no significant hemodynamic stenosis. 2-D echo with Doppler with ejection fraction 50-54% within normal axis. Patient was a spiking fever, ID team kindly evaluated patient, mostly this is related to his aspiration pneumonitis. Chest x-ray was unremarkable for acute consolidation, patient is recommended to be discharged on Augmentin for a few more days as per ID team For his DM He continue to be on Levemir and his dose increased to 25 twice a day. Hemoglobin A1c 12.1% on 02/23/18 Patient with history of vocal cord cancer, status post surgical resection by , he was found having dysphagia, and PEG tube was recommended and placed for him, and patient is tolerating feeding with no problems. Follow- up with as outpatient On 03/04/2018 patient mental status is at baseline and is alert awake oriented 3. He is making logic conversation. Patient states his back to his baseline and he is ready for discharge, patient states he wants to leave. Patient will be transferred to residential for further care. Patient was cleared by neurology, psychiatric, ID, and surgery team for discharge Patient problems and management plan were discussed with him and he verbalized understanding and acceptance Patient was found stable and can be discharged to his residential however he needs follow-up as an outpatient. Patient informed with his appointment with Dr. 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 Extremities no swelling or induration, neurological, cranial nerves are grossly intact, he moves all extremities in good equal strength 5/5, no sensory loss Patient Condition at Discharge: Good Plan - Discharge Summary New Discharge Prescriptions: New Acetaminophen Tab [Tylenol] 650 mg PEG/G-TUBE Q4HR PRN tab PRN Reason: Fever And/ Or Pain Amoxic-Pot Clav 875-125Mg [Augmentin 875-125] 1 each PEG/G-TUBE Q12HR #20 tab Insulin Aspart [NovoLOG (formulary)] 0 unit SQ Q6H vial Ipratropium-Albuterol Nebulize [Duoneb 0.5 mg-3 mg/3 ml Soln] 3 ml INHALATION RT-TID ampul.neb Multivitamins, Thera Liquid [Theragran Liquid (formulary)] 5 ml PO DAILY #1 ml Continue metFORMIN HCL 1,000 mg PO BID Simvastatin [Zocor] 20 mg PO HS Omeprazole [PriLOSEC] 20 mg PO DAILY Lisinopril [Prinivil] 5 mg PO DAILY Furosemide [Lasix] 20 mg PO DAILY Isosorbide Mononitrate ER [Imdur] 30 mg PO DAILY Carvedilol [Coreg] 6.25 mg PO BID Aspirin EC [Ecotrin Low Dose] 81 mg PO DAILY Changed Insulin Aspart [NovoLOG (formulary)] 5 unit SQ AC-TID #0 Insulin Glargine [Lantus] 30 unit SQ BID #1 Discontinued Ferrous Sulfate [Feosol] 325 mg PO DAILY Discharge Medication List Aspirin EC [Ecotrin Low Dose] 81 mg PO DAILY 02/22/18 [History] Carvedilol [Coreg] 6.25 mg PO BID 02/22/18 [History] Furosemide [Lasix] 20 mg PO DAILY 02/22/18 [History] Isosorbide Mononitrate ER [Imdur] 30 mg PO DAILY 02/22/18 [History] Lisinopril [Prinivil] 5 mg PO DAILY 02/22/18 [History] Omeprazole [PriLOSEC] 20 mg PO DAILY 02/22/18 [History] Simvastatin [Zocor] 20 mg PO HS 02/22/18 [History] metFORMIN HCL 1,000 mg PO BID 02/22/18 [History] Acetaminophen Tab [Tylenol] 650 mg PEG/G-TUBE Q4HR PRN tab 03/01/18 [Rx] Amoxic-Pot Clav 875-125Mg [Augmentin 875-125] 1 each PEG/G-TUBE Q12HR #20 tab [Rx] Insulin Aspart [NovoLOG (formulary)] 0 unit SQ Q6H vial 03/01/18 [Rx] Insulin Aspart [NovoLOG (formulary)] 5 unit SQ AC-TID #0 03/01/18 [Rx] Insulin Glargine [Lantus] 30 unit SQ BID #1 03/01/18 [Rx] Ipratropium-Albuterol Nebulize [Duoneb 0.5 mg-3 mg/3 ml Soln] 3 ml INHALATION RT -TID ampul.neb 03/01/18 [Rx] Multivitamins, Thera Liquid [Theragran Liquid (formulary)] 5 ml PO DAILY #1 ml 03/01/18 [Rx] Patient Instructions/Handouts: Percutaneous Endoscopic Gastrostomy Insertion ( DC) Discharge Disposition: TRANSFER TO SNF/ECF
[2018-03-04 11:49] LABS: Glucose,Whole Blood 272 mg/dL (75-99)
--- NOTE | 2018-03-04 14:24 | PN ---
PROGRESS NOTE DATE OF SERVICE: 03/04/2018. REASON FOR FOLLOWUP: Aspiration pneumonia. INTERVAL HISTORY: The patient is afebrile. He is currently breathing comfortably. Denies any chest pain. No cough. No abdominal pain. Has been waiting for rehab placement. EXAMINATION: Blood pressure 123/57 with a pulse of 80, temperature 98. He is 96% on room air. General description is an elderly male lying in bed in no distress. Respiratory system: Unlabored breathing. Clear to auscultation anteriorly. Heart S1, S2. Regular rate and rhythm. 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. No tenderness. Extremities no edema of the feet. LABS: No new labs have been obtained today. DIAGNOSTIC IMPRESSION AND PLAN: Patient with a fever, source likely aspiration pneumonitis has shown overall clinical improvement. Underlying infection has been adequately treated. Antibiotic can be safely discontinued. Continue supportive care. MMODL / IJN: [id number] /
[2018-03-04 17:31] LABS: Glucose,Whole Blood 209 mg/dL (75-99)
[2018-03-04] MEDS: ATORVASTATIN 10 MG TAB PO SCH (20:37)
[2018-03-04] MEDS: SODIUM CHLORIDE 0.9% 1,000 ML IV SCH (20:37)
[2018-03-05 00:12] LABS: Glucose,Whole Blood 260 mg/dL (75-99)
[2018-03-05] MEDS: INSULIN ASPART 100 UNIT/ML 1 ML 10 ML VIAL SQ SCH ×2 (00:15→05:30)
[2018-03-05] MEDS: ENALAPRILAT 1.25 MG/ML 1 ML VIAL IV SCH ×2 (00:15→05:31)
[2018-03-05 05:24] LABS: Glucose,Whole Blood 353 mg/dL (75-99)
[2018-03-05] MEDS: IPRATROPIUM-ALBUTEROL 3 ML NEB INHALATION SCH (08:00)
[2018-03-05 08:36] VITALS: BP 161/71; PULSE 74; TEMP 98.1
[2018-03-05] MEDS: INSULIN DETEMIR 100 UNIT/ML 10 ML VIAL SQ SCH (08:54)
[2018-03-05] MEDS: HEPARIN SODIUM,PORCINE 5,000 UNIT/ML 1 ML VIAL SQ SCH (08:54)
[2018-03-05] MEDS: AMOXIC-POT CLAV 875-125MG 1 EACH TAB PEG/G-TUBE SCH (08:56)
[2018-03-05] MEDS: metFORMIN 500 MG TAB PO SCH (08:56)
[2018-03-05] MEDS: ASPIRIN 81 MG PO SCH (08:56)
[2018-03-05] MEDS: CARVEDILOL 6.25 MG TAB PO SCH (08:57)
[2018-03-05] MEDS: ISOSORBIDE MONONITRATE ER 30 MG TAB.ER.24H PO SCH (08:57)
[2018-03-05] MEDS: FUROSEMIDE 20 MG TAB PO SCH (08:57)
[2018-03-05] MEDS: PANTOPRAZOLE 40 MG/10 ML VIAL IVP SCH (08:57)
--- NOTE | 2018-03-05 10:17 | CDI ---
Last Revision, September 2017 Documentation Clarification Form Date: 03/05/2018 10:13:00 AM From: Remedios CabreraMaddoxTEE, CCDS Admit Date: 02/22/2018 10:07:00 PM Patient Name: Byron Sosa Visit Number: [id number] Discharge Date: ATTENTION: The Clinical Documentation Specialists (CDI) and [facility] Coding Staff appreciate your assistance in clarifying documentation. Please respond to the clarification below the line at the bottom and electronically sign. The CDI & [facility] Coding staff will review the response and follow-up if needed. Please note: Queries are made part of the Legal Health Record. If you have any questions, please contact the author of this message via ITS. Dr. Erwin Wood: Per the 03/01 Discharge Summary: Diabetes Mellitus type 2, uncontrolled, present on admission. Per the History & Physical, the patient initially presented to [facility] with blood sugar >800. History/Risk Factors: DM II, Hypertension, Hyperlipidemia, history of EtOH. Clinical Indicators: LAB: Glucose 328 on admission, drop to 53 on 02/27, currently 353 Treatment: Insulin sq, IV Dextrose, IV fluid rate 100. Also IV Lasix, IV antibiotics (Severe protein calorie malnutrition, possible TIA & developed aspiration pneumonia requiring PEG tube placement) In order to capture the severity of Illness and necessary documentation specificity, please clarify: Diabetes Mellitus II with: Hyperglycemia Hypoglycemia Other, please specify Unable to Determine Please document our response in your discharge summary in order to capture severity of illness and risk of mortality. Include clinical findings that support your diagnosis. Diabetes Mellitus II with: Hyperglycemia_ MTDD
--- NOTE | 2018-03-05 10:51 | P.DS ---
Providers Date of admission: 02/22/18 22:07 Attending physician: Bebeto Galvan Consults: 02/23/18 00:06 Consult Physician Stat Consulting Provider: Kierra Barillas Consult Reason/Comments: rule out CVA Do you want consulting provider notified?: Yes 02/23/18 00:42 Consult Physician Routine Consulting Provider: Hiwot Combs Consult Reason/Comments: altered mental status Do you want consulting provider notified?: Yes 02/23/18 10:00 Consult Physician Urgent Consulting Provider: Ernesto Loco Consult Reason/Comments: voice changes, no swallow reflex, history of throat cancer Do you want consulting provider notified?: Yes 02/24/18 16:16 Consult Physician Routine Consulting Provider: Alhaji Hope Consult Reason/Comments: fever Do you want consulting provider notified?: Yes Primary care physician: Stated None Hospital Course: Patient presents with diagnosis of diabetes mellitus with hyperglycemia on admission Patient is supposed to be discharged yesterday, for social issues his discharge was held until today 03/05/2018 Patient remains to be stable Patient is seen and examined by me at bedside today Physical exam General he is alert awake orientedX3, not in distress, pleasant looking Head and neck, normocephalic, atraumatic, and neck is supple Chest, B/L CTA CVS, S1, S2, RRR, no murmur 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, NT, 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, 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 Extremities no swelling or induration, neurological, cranial nerves are grossly intact, he moves all extremities in good equal strength 5/5, no sensory loss Patients remain stable signs and be discharged to his [place] [facility], Please refer to the discharge summary from yesterday for more details Patient Condition at Discharge: Good Plan - Discharge Summary New Discharge Prescriptions: New Acetaminophen Tab [Tylenol] 650 mg PEG/G-TUBE Q4HR PRN tab PRN Reason: Fever And/ Or Pain Amoxic-Pot Clav 875-125Mg [Augmentin 875-125] 1 each PEG/G-TUBE Q12HR #20 tab Insulin Aspart [NovoLOG (formulary)] 0 unit SQ Q6H vial Ipratropium-Albuterol Nebulize [Duoneb 0.5 mg-3 mg/3 ml Soln] 3 ml INHALATION RT-TID ampul.neb Multivitamins, Thera Liquid [Theragran Liquid (formulary)] 5 ml PO DAILY #1 ml Insulin Detemir [Levemir] 25 unit SQ BID syr Continue metFORMIN HCL 1,000 mg PO BID Simvastatin [Zocor] 20 mg PO HS Omeprazole [PriLOSEC] 20 mg PO DAILY Lisinopril [Prinivil] 5 mg PO DAILY Furosemide [Lasix] 20 mg PO DAILY Isosorbide Mononitrate ER [Imdur] 30 mg PO DAILY Carvedilol [Coreg] 6.25 mg PO BID Aspirin EC [Ecotrin Low Dose] 81 mg PO DAILY Changed Insulin Aspart [NovoLOG (formulary)] 5 unit SQ AC-TID #0 Insulin Glargine [Lantus] 30 unit SQ BID #1 Discontinued Ferrous Sulfate [Feosol] 325 mg PO DAILY Discharge Medication List Aspirin EC [Ecotrin Low Dose] 81 mg PO DAILY 02/22/18 [History] Carvedilol [Coreg] 6.25 mg PO BID 02/22/18 [History] Furosemide [Lasix] 20 mg PO DAILY 02/22/18 [History] Isosorbide Mononitrate ER [Imdur] 30 mg PO DAILY 02/22/18 [History] Lisinopril [Prinivil] 5 mg PO DAILY 02/22/18 [History] Omeprazole [PriLOSEC] 20 mg PO DAILY 02/22/18 [History] Simvastatin [Zocor] 20 mg PO HS 02/22/18 [History] metFORMIN HCL 1,000 mg PO BID 02/22/18 [History] Acetaminophen Tab [Tylenol] 650 mg PEG/G-TUBE Q4HR PRN tab 03/01/18 [Rx] Amoxic-Pot Clav 875-125Mg [Augmentin 875-125] 1 each PEG/G-TUBE Q12HR #20 tab [Rx] Insulin Aspart [NovoLOG (formulary)] 0 unit SQ Q6H vial 03/01/18 [Rx] Insulin Aspart [NovoLOG (formulary)] 5 unit SQ AC-TID #0 03/01/18 [Rx] Insulin Glargine [Lantus] 30 unit SQ BID #1 03/01/18 [Rx] Ipratropium-Albuterol Nebulize [Duoneb 0.5 mg-3 mg/3 ml Soln] 3 ml INHALATION RT -TID ampul.neb 03/01/18 [Rx] Multivitamins, Thera Liquid [Theragran Liquid (formulary)] 5 ml PO DAILY #1 ml 03/01/18 [Rx] Insulin Detemir [Levemir] 25 unit SQ BID syr 03/04/18 [Rx] Follow up Appointment(s)/Referral(s): Ernesto Loco DO [Doctor of Osteopathic Medicine] - 03/17/18 3:00 pm ( vocal cord) Patient Instructions/Handouts: Percutaneous Endoscopic Gastrostomy Insertion ( DC) Activity/Diet/Wound Care/Special Instructions: Patient currently on Glucerna 1.2 at 75 mL/h plus he is is on water flushes 100 mL every 4 hours through his PEG tube Activity as tolerated Discharge Disposition: TRANSFER TO SNF/ECF
--- NOTE | 2018-03-08 12:57 | CDI ---
Last Revision, September 2017 Documentation Clarification Form Date: 03/08/18 From: Radha Hernández Phone: If you have a question regarding this query, please contact Keya Hernandez at [phone] between 8am and 5pm. Admit Date: 02/22/2018 10:07:00 PM Patient Name: Byron Sosa Visit Number: [id number] Discharge Date: 03/05/18 ATTENTION: The Clinical Documentation Specialists (CDI) and [facility] Coding Staff appreciate your assistance in clarifying documentation. Please respond to the clarification below the line at the bottom and electronically sign. The CDI & [facility] Coding staff will review the response and follow-up if needed. Please note: Queries are made part of the Legal Health Record. If you have any questions, please contact the author of this message via ITS. Dr. Gonzalez E Sheet A diagnosis of anemia lacks specificity to accurately reflect your patients severity of condition and clarification is needed. Anemia is documented in Dr. Barillas's and Dr. Combs's consult notes. History/Risk Factors: Patient has a history of CAD, hypertension, DM and malnutrition. Clinical indicators: decrease in hgb and hct. Hemoglobin: 12.8 on admit then 12.0 on discharge Hematocrit: 35.2 on admit then 35.3 on discharge Treatment: monitoring labs In order to capture the severity of condition, please clarify the type of anemia and etiology if known: Acute blood loss anemia Acute on chronic blood loss anemia Chronic blood loss anemia Iron deficiency anemia Drug induced anemia Nutritional anemia Unable to determine Other, please specify Unable to determine MTDD
== END 2018-03-05 11:55 | DRG 637 ==
LOC: 6SEL 22:07 → 5MS5E 02-26 02:24
PROVIDERS: ADMIT Internal Medicine; ATTEND Internal Medicine
PROC: 0CJS8ZZ Inspection of Larynx, Via Natural or Artificial Opening Endoscopic (ICD-10-PCS; 2018-02-23)
PROC: 0DH63UZ Insertion of Feeding Device into Stomach, Percutaneous Approach (ICD-10-PCS; principal; 2018-02-25 07:50)
DX: E11.65 Type 2 diabetes mellitus with hyperglycemia (principal); E43 Unspecified severe protein-calorie malnutrition; G93.41 Metabolic encephalopathy; J69.0 Pneumonitis due to inhalation of food and vomit; R47.01 Aphasia; G45.9 Transient cerebral ischemic attack, unspecified; D69.6 Thrombocytopenia, unspecified; J44.9 Chronic obstructive pulmonary disease, unspecified; R13.10 Dysphagia, unspecified; Z68.22 Body mass index [BMI] 22.0-22.9, adult; E78.5 Hyperlipidemia, unspecified; D64.9 Anemia, unspecified; E87.6 Hypokalemia; F10.21 Alcohol dependence, in remission; H91.90 Unspecified hearing loss, unspecified ear; I10 Essential (primary) hypertension; I25.10 Atherosclerotic heart disease of native coronary artery without angina pectoris; I25.2 Old myocardial infarction; K21.9 Gastro-esophageal reflux disease without esophagitis; F32.9 Major depressive disorder, single episode, unspecified; R26.9 Unspecified abnormalities of gait and mobility; R32 Unspecified urinary incontinence; R29.6 Repeated falls; E11.51 Type 2 diabetes mellitus with diabetic peripheral angiopathy without gangrene; Z79.4 Long term (current) use of insulin; Z79.82 Long term (current) use of aspirin; Z79.899 Other long term (current) drug therapy; Z95.5 Presence of coronary angioplasty implant and graft; Z87.891 Personal history of nicotine dependence; Z87.442 Personal history of urinary calculi; Z90.49 Acquired absence of other specified parts of digestive tract; Z91.14 Patient's other noncompliance with medication regimen; Z66 Do not resuscitate; Z85.21 Personal history of malignant neoplasm of larynx
CPT/HCPCS: 43246; 70450; 71045; 71250; 74230; 80048; 80053; 83036; 84439; 84481; 85025; 93306; 93880; 94640; 94760; 95816

== ENCOUNTER 2019-05-10 13:35 | Inpatient (IN) | payer MEDICARE, OTHER ==
[2019-05-10 20:04] LABS: Glucose,Whole Blood 228 mg/dL (75-99)
[2019-05-10] MEDS: SODIUM CHLORIDE 0.9% 1,000 ML IV SCH (23:47)
[2019-05-11 07:23] LABS: Glucose,Whole Blood 288 mg/dL (75-99)
[2019-05-11] MEDS: INSULIN ASPART (NovoLOG) 100 UNIT/ML VIAL SQ SCH ×4 (09:01→22:02)
[2019-05-11 10:00] LABS: Basophils % (A) 0 %; Eosinophils # (A) 0.1 k/uL (0-0.7); Eosinophils % (A) 4 %; HCT 27.6 % (39.0-53.0); HGB 8.9 gm/dL (13.0-17.5); Lymphocytes # (A) 1.1 k/uL (1.0-4.8); Lymphocytes % (A) 33 %; MCH 30.9 pg (25.0-35.0); MCHC 32.2 g/dL (31.0-37.0); MCV 95.8 fL (80.0-100.0); Mean Platelet Volume 8.4; Monocytes # (A) 0.2 k/uL (0-1.0); Monocytes % (A) 7 %; Neutrophils # (A) 1.8 k/uL (1.3-7.7); Neutrophils % (A) 52 %; Platelet Count 139 k/uL (150-450); Poikilocytosis Slight; RBC 2.89 m/uL (4.30-5.90); RDW 14.5 % (11.5-15.5); WBC 3.4 k/uL (3.8-10.6)
[2019-05-11 10:08] LABS: African American GFR (CKD) >90 (>60 ml/min/1.73 sqM); Anion Gap 7 mmol/L; Blood Urea Nitrogen 13 mg/dL (9-20); Calcium 8.4 mg/dL (8.4-10.2); Carbon Dioxide 27 mmol/L (22-30); Chloride 102 mmol/L (98-107); Glucose 285 mg/dL (74-99); Potassium 4.5 mmol/L (3.5-5.1); Sodium 136 mmol/L (137-145)
[2019-05-11 11:19] LABS: Glucose,Whole Blood 280 mg/dL (75-99)
--- NOTE | 2019-05-11 11:33 | P.GSCN ---
<Christina Huerta Angeline - Last Filed: 05/11/19 11:23> History of Present Illness Consult date: 05/11/19 Reason for Consult: PEG tube placement Requesting physician: Bebeto Galvan History of present illness: CHIEF COMPLAINT: dysphagia HISTORY OF PRESENT ILLNESS: 79-year-old male who is admitted to the hospital secondary to dysphasia. Patient has a history of vocal cord cancer. General surgery was consulted for PEG tube placement. Patient reports having a PEG tube placed in 2018. He states it was removed because he did not need it anymore. He states he was told he needs it placed again because he is not eating enough. PAST MEDICAL HISTORY: See list. PAST SURGICAL HISTORY: See list. SOCIAL HISTORY: No illicit drug use. REVIEW OF SYSTEMS: unable to obtain thorough review of systems due to confusion PHYSICAL EXAM: VITAL SIGNS: Reviewed. GENERAL: Well-developed in no acute distress. HEENT: No sclera icterus. Extraocular movements grossly intact. Moist buccal mucosa. Head is atraumatic, normocephalic. ABDOMEN: Soft. Nondistended. Nontender. Old peg site noted. NEUROLOGIC: Alert and oriented x 1-2. Cranial nerves II through XII grossly intact. ASSESSMENT: 1. Dysphagia 2. History of vocal cord cancer PLAN: nothing by mouth. Continue IV fluids. Patient to undergo PEG tube placement today with Dr. Smith. Nurse practitioner note has been reviewed by physician. Signing provider agrees with the documented findings, assessment, and plan of care. Past Medical History Past Medical History: Coronary Artery Disease (CAD), Cancer, Diabetes Mellitus, Hyperlipidemia, Hypertension, Myocardial Infarction ([place]) Additional Past Medical History / Comment(s): kidney stones, pancreatitis, vocal cord cancer, detached retina, Hard of Hearing, recovering alcoholic (stopped drinking 1984) Last Myocardial Infarction Date:: 2012 History of Any Multi-Drug Resistant Organisms: None Reported Past Surgical History: Cholecystectomy, Heart Catheterization With Stent Past Anesthesia/Blood Transfusion Reactions: No Reported Reaction Date of Last Stent Placement:: 2015 Past Psychological History: Depression Smoking Status: Former smoker Past Alcohol Use History: Abuse Additional Past Alcohol Use History / Comment(s): recovering alcoholic - Past Family History Father History Unknown: Yes Medications and Allergies Home Medications Medication Instructions Recorded Confirmed Type Aspirin EC [Ecotrin Low Dose] 81 mg PO DAILY 02/22/18 05/11/19 History Carvedilol [Coreg] 6.25 mg PO BID 02/22/18 05/11/19 History Furosemide [Lasix] 20 mg PO DAILY 02/22/18 05/11/19 History Isosorbide Mononitrate ER [Imdur] 30 mg PO DAILY 02/22/18 05/11/19 History Lisinopril [Prinivil] 5 mg PO DAILY 02/22/18 05/11/19 History Omeprazole [PriLOSEC] 20 mg PO DAILY 02/22/18 05/11/19 History Acetaminophen Tab [Tylenol] 650 mg PO Q4HR PRN 05/10/19 05/11/19 History Atorvastatin [Lipitor] 10 mg PO HS 05/11/19 05/11/19 History INSULIN ASPART (NovoLOG) [NovoLOG 15 unit SQ AC-TID 05/11/19 05/11/19 History (formulary)] INSULIN ASPART (NovoLOG) [NovoLOG See Protocol SQ Q6H 05/11/19 05/11/19 History (formulary)] Insulin Detemir [Levemir Flextouch] 30 units SQ BID 05/11/19 05/11/19 History Magnesium Hydroxide [Milk of 2,400 mg PO DAILY PRN 05/11/19 05/11/19 History Magnesia] metFORMIN HCL [Glucophage] 500 mg PO BID 05/11/19 05/11/19 History Allergies Allergy/AdvReac Type Severity Reaction Status Date / Time No Known Allergies Allergy Verified 05/11/19 10:37 Surgical - Exam Vital Signs Temp Pulse Resp BP Pulse Ox 97.4 F L 55 L 18 124/70 99 05/10/19 21:40 05/10/19 21:40 05/10/19 21:40 05/10/19 21:40 05/10/19 21:40 Results - Labs 05/11/19 09:12 05/11/19 09:12 Abnormal Lab Results - Last 24 Hours (Table) 05/10/19 05/11/19 05/11/19 Range/Units 20:03 07: 09:12 WBC 3.4 L (3.8-10.6) k/uL RBC 2.89 L (4.30-5.90) m/uL Hgb 8.9 L (13.0-17.5) gm/dL Hct 27.6 L (39.0-53.0) % Plt Count 139 L (150-450) k/uL Sodium (137-145) mmol/L Glucose (74-99) mg/dL POC Glucose (mg/dL) 228 H 288 H (75-99) mg/dL 05/11/19 05/11/19 Range/Units 09:12 11:17 WBC (3.8-10.6) k/uL RBC (4.30-5.90) m/uL Hgb (13.0-17.5) gm/dL Hct (39.0-53.0) % Plt Count (150-450) k/uL Sodium 136 L (137-145) mmol/L Glucose 285 H (74-99) mg/dL POC Glucose (mg/dL) 280 H (75-99) mg/dL Diabetes panel 05/11/19 Range/Units 09:12 Sodium 136 L (137-145) mmol/L Potassium 4.5 (3.5-5.1) mmol/L Chloride 102 (98-107) mmol/L Carbon Dioxide 27 (22-30) mmol/L BUN 13 (9-20) mg/dL Creatinine 0.71 (0.66-1.25) mg/dL Glucose 285 H (74-99) mg/dL Calcium 8.4 (8.4-10.2) mg/dL Calcium panel 05/11/19 Range/Units 09:12 Calcium 8.4 (8.4-10.2) mg/dL Pituitary panel 05/11/19 Range/Units 09:12 Sodium 136 L (137-145) mmol/L Potassium 4.5 (3.5-5.1) mmol/L Chloride 102 (98-107) mmol/L Carbon Dioxide 27 (22-30) mmol/L BUN 13 (9-20) mg/dL Creatinine 0.71 (0.66-1.25) mg/dL Glucose 285 H (74-99) mg/dL Calcium 8.4 (8.4-10.2) mg/dL Adrenal panel 05/11/19 Range/Units 09:12 Sodium 136 L (137-145) mmol/L Potassium 4.5 (3.5-5.1) mmol/L Chloride 102 (98-107) mmol/L Carbon Dioxide 27 (22-30) mmol/L BUN 13 (9-20) mg/dL Creatinine 0.71 (0.66-1.25) mg/dL Glucose 285 H (74-99) mg/dL Calcium 8.4 (8.4-10.2) mg/dL <Augustus Smith - Last Filed: 05/11/19 13:31> History of Present Illness Consult date: 05/10/19 Surgical - Exam Vital Signs Temp Pulse Resp BP Pulse Ox 97.4 F L 55 L 18 124/70 99 05/10/19 21:40 05/10/19 21:40 05/10/19 21:40 05/10/19 21:40 05/10/19 21:40 Results - Labs 05/11/19 09:12 05/11/19 09:12 Abnormal Lab Results - Last 24 Hours (Table) 05/10/19 05/11/19 05/11/19 Range/Units 20:03 07:20 09:12 WBC 3.4 L (3.8-10.6) k/uL RBC 2.89 L (4.30-5.90) m/uL Hgb 8.9 L (13.0-17.5) gm/dL Hct 27.6 L (39.0-53.0) % Plt Count 139 L (150-450) k/uL Sodium (137-145) mmol/L Glucose (74-99) mg/dL POC Glucose (mg/dL) 228 H 288 H (75-99) mg/dL 05/11/19 05/11/19 Range/Units 09:12 11:17 WBC (3.8-10.6) k/uL RBC (4.30-5.90) m/uL Hgb (13.0-17.5) gm/dL Hct (39.0-53.0) % Plt Count (150-450) k/uL Sodium 136 L (137-145) mmol/L Glucose 285 H (74-99) mg/dL POC Glucose (mg/dL) 280 H (75-99) mg/dL Diabetes panel 05/11/19 Range/Units 09:12 Sodium 136 L (137-145) mmol/L Potassium 4.5 (3.5-5.1) mmol/L Chloride 102 (98-107) mmol/L Carbon Dioxide 27 (22-30) mmol/L BUN 13 (9-20) mg/dL Creatinine 0.71 (0.66-1.25) mg/dL Glucose 285 H (74-99) mg/dL Calcium 8.4 (8.4-10.2) mg/dL Calcium panel 05/11/19 Range/Units 09:12 Calcium 8.4 (8.4-10.2) mg/dL Pituitary panel 05/11/19 Range/Units 09:12 Sodium 136 L (137-145) mmol/L Potassium 4.5 (3.5-5.1) mmol/L Chloride 102 (98-107) mmol/L Carbon Dioxide 27 (22-30) mmol/L BUN 13 (9-20) mg/dL Creatinine 0.71 (0.66-1.25) mg/dL Glucose 285 H (74-99) mg/dL Calcium 8.4 (8.4-10.2) mg/dL Adrenal panel 05/11/19 Range/Units 09:12 Sodium 136 L (137-145) mmol/L Potassium 4.5 (3.5-5.1) mmol/L Chloride 102 (98-107) mmol/L Carbon Dioxide 27 (22-30) mmol/L BUN 13 (9-20) mg/dL Creatinine 0.71 (0.66-1.25) mg/dL Glucose 285 H (74-99) mg/dL Calcium 8.4 (8.4-10.2) mg/dL
[2019-05-11] MEDS ORDERED: IV FLUID CONTINUATION 1,000 ML IV ONE ×2 (13:05)
[2019-05-11] MEDS ORDERED: PROPOFOL 10 MG/ML 20 ML VIAL IV ONE (13:06)
[2019-05-11] MEDS ORDERED: KETAMINE 10 MG/ML 20 ML VIAL ONE (13:06)
--- NOTE | 2019-05-11 13:30 | P.OP ---
Date of Procedure: 05/11/19 Preoperative Diagnosis: Protein calorie malnutrition Postoperative Diagnosis: Protein calorie malnutrition Procedure(s) Performed: Insertion of PEG tube Anesthesia: MAC Pathology: none sent Condition: stable Disposition: PACU Description of Procedure: The patient's placed on the endoscopy table in the lateral position. He recei felipe IV sedation. The gastroscope placed oropharynx passed in the esophagus and stomach. Scope then placed through the pylorus. The first and second portion of the duodenum appeared normal. Scope was then brought back the antrum this appeared normal. This point the scope was retroflexed and a suitable light reflux seen the anterior abdominal wall. A skin incision was made and then the we'll was placed in the stomach under direct visualization. The wire was placed through the needle and snared. The wire was then brought up the patient oropharynx. The PEG tube placed overtop the wire. The PEG tube was then brought down stomach and secured at the 3 cm mago with the one-piece bolster. Patient top she will was sent to recovery in stable condition.
[2019-05-11] MEDS: SODIUM CHLORIDE 0.9% 1,000 ML IV SCH ×2 (13:52→22:13)
[2019-05-11] MEDS ORDERED: LORazepam 2 MG/ML INJ IV PRN (14:29)
[2019-05-11] MEDS ORDERED: HYDROmorphone 0.5 MG/0.5 ML SYRINGE IVP PRN (14:29)
[2019-05-11] MEDS ORDERED: hydrALAZINE HCL 20 MG/ML 1 ML VIAL IVP PRN (14:29)
--- NOTE | 2019-05-11 15:22 | HP ---
HISTORY AND PHYSICAL DATE OF SERVICE: 05/11/2019 CHIEF COMPLAINTS: Dysphagia. HISTORY OF PRESENT ILLNESS: This is an 79-year-old gentleman with a past medical history of multiple medical problems including diabetes, dysphagia, hypertension, hyperlipidemia, history of noncompliance, depression, history EtOH, being followed by Dr. Eric Welsh in [place], he is apparently living in [facility] at this time. The patient apparently had dysphagia. Patient had PEG tube placed. The PEG tube was removed about 6 months ago, now currently the patient had difficulty in swallowing and the [place] physician contacted Dr. Smith for reinsertion of the PEG tube and the patient was transferred to [facility] for direct admission for further evaluation and treatment. Currently, the patient is mildly confused, unable to give a coherent history. Most of the history is taken from my discussion with staff and review of chart at this time. PAST MEDICAL HISTORY: History of TIA, history of dysphagia, history of hypertension, hypokalemia, hyperlipidemia, history of noncompliance, history of depression, ETOH, gait dysfunction. MEDICATIONS: Prior to admission include home medications are: 1. Glucophage 500 mg p.o. b.i.d. 2. Prilosec 20 mg p.o. daily. 3. Milk of magnesia 2.5 mg daily. 4. Prinivil 5 mg p.o. daily. 5. Imdur 30 mg p.o. daily. 6. Levemir 30 units subcu b.i.d. 7. NovoLog q.6 and 15 mL t.i.d. 8. Lasix 20 mg p.o. 9. Coreg 6.25 mg p.o. b.i.d. 10.Lipitor 10 mg q.h.s. 11.Ecotrin 81 mg. 12.Tylenol 650 q.4 p.r.n. ALLERGIES: None. FAMILY HISTORY, SOCIAL HISTORY, REVIEW OF SYSTEMS: Could not be taken because the patient's change in mental status and confusion per chart. History of depression. Previous smoking, alcohol per chart. PHYSICAL EXAM: Patient is conscious, confused. Pulse is 61, blood pressure 145/60, respiration 18, temperature 97.2, pulse ox 100% on room air. HEENT: Normal, oral mucosa moist. NECK: No jugular venous distention. No lymph node enlargement. CARDIOVASCULAR SYSTEM: S1, S2, muffled. RESPIRATION: Breath sounds diminished at the bases. A few scattered rhonchi, no crackles. ABDOMEN: Soft, nontender. LEGS: No edema, no swelling. NERVOUS SYSTEM: Higher functions as mentioned earlier. Moves all limbs. Mild diffuse weakness. LYMPHATICS: No lymph node enlargement in the neck or axillae. SKIN: No ulcer, rash or bleeding. JOINTS: No active arthropathy. LABS: WBC is 3.8, hemoglobin is 8.9, platelets 139. Sodium 136, glucose 285. ASSESSMENT: 1. Dysphagia for evaluation with possible aspirations. 2. History of previous transient ischemic attacks and dysphagia and PEG tube placement and removal. 3. Change in mental status, acute on chronic metabolic encephalopathy. 4. Diabetes mellitus type 2. 5. Hypertension. 6. Hyperlipidemia. 7. History of noncompliance. 8. History of depression. 9. History of nicotine dependence. 10.History of ETOH. 11.Gait dysfunction. 12.Hyponatremia. 13.Mild pancytopenia of undetermined etiology. 14.History of nephrolithiasis. 15.History of pancreatitis. 16.History of vocal cord cancer. 17.History of retinal detachment. 18.History of coronary artery disease, stent. 19.NO CODE, NO CPR, NO VENT. RECOMMENDATION: In this 79-year-old gentleman who presented with multiple complex medical issues, will monitor the patient closely. Continue with the current management and symptomatic treatment. I would recommend to keep the patient n.p.o. Consult Dr. Smith for PEG tube placement. Otherwise, will monitor blood sugars closely. Resume the home medications once the patient is p.o. Prognosis guarded because of multiple complex medical conditions: Further recommendations to follow. MMODL / IJN: [id number] /
[2019-05-11 17:02] LABS: Glucose,Whole Blood 175 mg/dL (75-99)
[2019-05-11 20:30] LABS: Glucose,Whole Blood 193 mg/dL (75-99)
[2019-05-11] MEDS: PANTOPRAZOLE 40 MG/10 ML VIAL IVP SCH (22:02)
[2019-05-11] MEDS: INSULIN DETEMIR (LEVEMIR) 100 UNIT/ML SYR SQ SCH (22:02)
[2019-05-11] MEDS: HEPARIN SODIUM,PORCINE 5,000 UNIT/ML 1 ML VIAL SQ SCH (22:02)
[2019-05-11] MEDS ORDERED: NALOXONE 0.4 MG/ML 1 ML VIAL IV STA (22:49)
[2019-05-11 23:21] LABS: Glucose,Whole Blood 215 mg/dL (75-99)
--- NOTE | 2019-05-12 00:55 | CT ---
History: ITS.REASON CT Reason: change in mental status Exam: CT HEAD Without Contrast Technique more: CTDI is 13.50 mGy and DLP is 1047.10 mGy-cm. Technique more: This CT exam was performed using one or more of the following dose reduction techniques: automated exposure control, adjustment of the mA and/or kV according to patient size, and/or use of iterative reconstruction technique. Comparison: 02/24/2018 FINDINGS: No intracranial hemorrhage, mass effect or CT evidence of acute infarct. The ventricles are unchanged in size and remain midline. Chronic and involutional changes. The visualized paranasal sinuses, right mastoid and orbits appear unchanged. Very mild partial fluid opacification lower left mastoid. IMPRESSION: No intracranial hemorrhage, mass effect or CT evidence of acute infarct.
[2019-05-12 06:58] LABS: Glucose,Whole Blood 190 mg/dL (75-99)
[2019-05-12 07:43] LABS: Basophils % (A) 0 %; Eosinophils # (A) 0.1 k/uL (0-0.7); Eosinophils % (A) 2 %; HCT 28.4 % (39.0-53.0); HGB 9.5 gm/dL (13.0-17.5); Lymphocytes # (A) 1.4 k/uL (1.0-4.8); Lymphocytes % (A) 31 %; MCH 31.2 pg (25.0-35.0); MCHC 33.3 g/dL (31.0-37.0); MCV 93.6 fL (80.0-100.0); Mean Platelet Volume 7.8; Monocytes # (A) 0.3 k/uL (0-1.0); Monocytes % (A) 7 %; Neutrophils # (A) 2.7 k/uL (1.3-7.7); Neutrophils % (A) 57 %; Platelet Count 146 k/uL (150-450); RBC 3.03 m/uL (4.30-5.90); RDW 14.1 % (11.5-15.5); WBC 4.7 k/uL (3.8-10.6)
[2019-05-12 08:14] LABS: African American GFR (CKD) >90 (>60 ml/min/1.73 sqM); Anion Gap 9 mmol/L; Blood Urea Nitrogen 10 mg/dL (9-20); Calcium 8.4 mg/dL (8.4-10.2); Carbon Dioxide 25 mmol/L (22-30); Chloride 102 mmol/L (98-107); Glucose 192 mg/dL (74-99); Potassium 3.6 mmol/L (3.5-5.1); Sodium 136 mmol/L (137-145)
[2019-05-12] MEDS: PANTOPRAZOLE 40 MG/10 ML VIAL IVP SCH ×2 (08:35→20:44)
[2019-05-12] MEDS: HEPARIN SODIUM,PORCINE 5,000 UNIT/ML 1 ML VIAL SQ SCH ×2 (08:35→20:43)
[2019-05-12] MEDS: INSULIN DETEMIR (LEVEMIR) 100 UNIT/ML SYR SQ SCH ×2 (08:36→20:44)
[2019-05-12] MEDS: INSULIN ASPART (NovoLOG) 100 UNIT/ML VIAL SQ SCH ×4 (08:36→23:48)
[2019-05-12 11:44] LABS: Glucose,Whole Blood 146 mg/dL (75-99)
[2019-05-12] MEDS: SODIUM CHLORIDE 0.9% 1,000 ML IV SCH (12:00)
[2019-05-12] MEDS: LISINOPRIL 5 MG TAB PO SCH (12:02)
--- NOTE | 2019-05-12 13:08 | P.PN ---
Subjective Progress Note Date: 05/12/19 CHIEF COMPLAINT: dysphagia HISTORY OF PRESENT ILLNESS: Patient is s/p PEG tube placement. Tube feedings have been started this morning. Patient is tolerating well. He reports soreness near PEG tube insertion site. Denies nausea or vomiting. PHYSICAL EXAM: VITAL SIGNS: Reviewed. GENERAL: Well-developed in no acute distress. HEENT: No sclera icterus. Extraocular movements grossly intact. Moist buccal mucosa. Head is atraumatic, normocephalic. ABDOMEN: Soft. Nondistended. Nontender. PEG tube site clean dry intact without drainage or signs of infection NEUROLOGIC: Alert and oriented x 1-2. Cranial nerves II through XII grossly intact. ASSESSMENT: 1. Dysphagia 2. History of vocal cord cancer PLAN: Continue tube feedings as tolerated. Stable from a surgical standpoint. Please re-consult if needed Nurse practitioner note has been reviewed by physician. Signing provider agrees with the documented findings, assessment, and plan of care. Objective - Vital Signs Vital signs: Vital Signs Temp 97.8 F 05/12/19 05:00 Pulse 68 05/12/19 08:45 Resp 22 05/12/19 08:45 BP 137/69 05/12/19 05:00 Pulse Ox 98 05/12/19 05:00 Intake & Output 05/11/19 05/12/19 05/12/19 18:59 06:59 18:59 Intake Total 100 60 Output Total 1550 875 Balance -1450 -875 60 Weight 85.275 kg 84 kg Intake: IV 100 Tube Feeding 60 Output: Urine 1550 875 Uretheral (Matias) 875 Other: Voiding Method Indwelling Catheter Indwelling Catheter Indwelling Catheter - Labs CBC & Chem 7: 05/12/19 07:17 05/12/19 07:17 Labs: Abnormal Lab Results - Last 24 Hours (Table) 05/11/19 05/11/19 05/11/19 Range/Units 17:01 20:29 23:04 RBC (4.30-5.90) m/uL Hgb (13.0-17.5) gm/dL Hct (39.0-53.0) % Plt Count (150-450) k/uL Sodium (137-145) mmol/L Glucose (74-99) mg/dL POC Glucose (mg/dL) 175 H 193 H 215 H (75-99) mg/dL 05/12/19 05/12/19 05/12/19 Range/Units 06:57 07:17 07:17 RBC 3.03 L (4.30-5.90) m/uL Hgb 9.5 L (13.0-17.5) gm/dL Hct 28.4 L (39.0-53.0) % Plt Count 146 L (150-450) k/uL Sodium 136 L (137-145) mmol/L Glucose 192 H (74-99) mg/dL POC Glucose (mg/dL) 190 H (75-99) mg/dL 05/12/19 Range/Units 11:42 RBC (4.30-5.90) m/uL Hgb (13.0-17.5) gm/dL Hct (39.0-53.0) % Plt Count (150-450) k/uL Sodium (137-145) mmol/L Glucose (74-99) mg/dL POC Glucose (mg/dL) 146 H (75-99) mg/dL
[2019-05-12 16:19] LABS: Hemoglobin A1C 9.2 % (4.0-6.0)
[2019-05-12 17:09] LABS: Glucose,Whole Blood 166 mg/dL (75-99)
--- NOTE | 2019-05-12 17:43 | PN ---
PROGRESS NOTE DATE OF SERVICE: 05/12/2019 This 79-year-old gentleman was admitted with dysphagia and had previous PEG tube placement. The patient underwent insertion of PEG tube placement for severe protein calorie malnutrition by Dr. Smith yesterday. The patient being closely monitored at this time. The patient continues to be confused. A brain CT scan was also done which showed no acute intracranial effect or mass effect this time. PAST MEDICAL HISTORY: Past medical history, review of systems could not be taken the patient. The patient is confused. CURRENT MEDICATIONS: Reviewed and include: 1. Heparin 5000 subcu b.i.d. 2. Apresoline 10 mg q.4 p.r.n. 3. Dilaudid p.r.n. 4. NovoLog. 5. Levemir 30 units subcu b.i.d. 6. Zestril 5 mg b.i.d. 7. Ativan 0.5 mg q.6 p.r.n. 8. Protonix 40 mg IV b.i.d. PHYSICAL EXAMINATION: Patient is alert and oriented x3. Pulse is 60, blood pressure 139/73, respirations 16, temperature 97.3, pulse ox 99% on room air. HEENT: Conjunctivae normal. NECK: No jugular venous distention. CARDIOVASCULAR: S1, S2 muffled. RESPIRATION: Breath sounds diminished in the bases. Scattered rhonchi and crackles. Expiratory wheezing also present. ABDOMEN: Soft. PEG tube in situ. Nontender. No mass palpable. LEGS: No edema. No swelling. CENTRAL NERVOUS SYSTEM: Diffusely weak. LABS: WBC 4.6, hemoglobin 9.5, platelets 146 and sodium 136. Glucose noted. ASSESSMENT: 1. Dysphagia with possible aspiration status post PEG tube placement. 2. On PEG tube feeds. 3. History of previous transient ischemic attacks and dysphagia and PEG tube placement and removal. 4. Change in mental status, acute on chronic metabolic encephalopathy. 5. History of vocal cord issues. 6. Diabetes type 2. 7. Hypertension. 8. Hyperlipidemia. 9. History of noncompliance. 10.History of depression. 11.History of nicotine dependence. 12.History of ETOH. 13.Gait dysfunction. 14.Hyponatremia. 15.History of mild pancytopenia of undetermined etiology. 16.Nephrolithiasis. 17.History of pancreatitis. 18.History of retinal detachment. 19.History of coronary artery disease/ stent. 20.NO CODE, NO CPR, NO VENT. RECOMMENDATIONS AND DISCUSSION: I recommend to continue current medications, management and symptomatic treatment. PEG tube has been inserted. I would recommend to follow the patient closely along with surgery. Initiate the PEG tube feeds and once the PEG tubes are arranged in the outpatient setting, the patient may be able to be discharged home. Otherwise, continue the rest of the medications. Prognosis guarded because of multiple complex medical issues and further recommendations to follow. MMODL / IJN: [id number] /
[2019-05-12 19:55] LABS: Glucose,Whole Blood 181 mg/dL (75-99)
[2019-05-12 23:47] LABS: Glucose,Whole Blood 183 mg/dL (75-99)
[2019-05-13] MEDS: SODIUM CHLORIDE 0.9% 1,000 ML IV SCH ×2 (04:34→14:34)
[2019-05-13 06:15] LABS: Glucose,Whole Blood 155 mg/dL (75-99)
[2019-05-13] MEDS: INSULIN ASPART (NovoLOG) 100 UNIT/ML VIAL SQ SCH ×3 (06:23→17:37)
[2019-05-13] MEDS: INSULIN DETEMIR (LEVEMIR) 100 UNIT/ML SYR SQ SCH ×2 (08:06→23:15)
[2019-05-13] MEDS: HEPARIN SODIUM,PORCINE 5,000 UNIT/ML 1 ML VIAL SQ SCH ×2 (08:06→23:15)
[2019-05-13] MEDS: PANTOPRAZOLE 40 MG/10 ML VIAL IVP SCH ×2 (08:07→23:26)
[2019-05-13] MEDS: LISINOPRIL 5 MG TAB PO SCH (08:07)
[2019-05-13 09:24] LABS: Basophils % (A) 1 %; Eosinophils # (A) 0.1 k/uL (0-0.7); Eosinophils % (A) 3 %; Lymphocytes # (A) 1.2 k/uL (1.0-4.8); Lymphocytes % (A) 26 %; MCH 31.5 pg (25.0-35.0); MCHC 33.4 g/dL (31.0-37.0); MCV 94.5 fL (80.0-100.0); Mean Platelet Volume 8.4; Monocytes # (A) 0.3 k/uL (0-1.0); Monocytes % (A) 7 %; Neutrophils # (A) 2.7 k/uL (1.3-7.7); Neutrophils % (A) 62 %; Platelet Count 176 k/uL (150-450); Poikilocytosis Slight; RBC 3.17 m/uL (4.30-5.90); WBC 4.4 k/uL (3.8-10.6)
[2019-05-13 09:28] LABS: African American GFR (CKD) >90 (>60 ml/min/1.73 sqM); Anion Gap 8 mmol/L; Blood Urea Nitrogen 12 mg/dL (9-20); Calcium 8.8 mg/dL (8.4-10.2); Carbon Dioxide 30 mmol/L (22-30); Chloride 100 mmol/L (98-107); Glucose 181 mg/dL (74-99); Potassium 3.4 mmol/L (3.5-5.1); Sodium 138 mmol/L (137-145)
--- NOTE | 2019-05-13 11:30 | P.PN ---
<DeannaChristina A - Last Filed: 05/13/19 13:19> Subjective Progress Note Date: 05/13/19 CHIEF COMPLAINT: dysphagia HISTORY OF PRESENT ILLNESS: Patient is s/p PEG tube placement. Tube feedings are infusing at 75 mL an hour. Patient is tolerating well. Denies nausea or vomiting. PHYSICAL EXAM: VITAL SIGNS: Reviewed. GENERAL: Well-developed in no acute distress. HEENT: No sclera icterus. Extraocular movements grossly intact. Moist buccal mucosa. Head is atraumatic, normocephalic. ABDOMEN: Soft. Nondistended. Nontender. PEG tube site clean dry intact without drainage or signs of infection NEUROLOGIC: Alert and oriented x 2. Cranial nerves II through XII grossly intact. ASSESSMENT: 1. Dysphagia 2. History of vocal cord cancer 3. Moderate protein calorie malnutrition PLAN: Continue tube feedings as tolerated. Stable from a surgical standpoint. Please re-consult if needed Nurse practitioner note has been reviewed by physician. Signing provider agrees with the documented findings, assessment, and plan of care. Objective - Vital Signs Vital signs: Vital Signs Temp 98.3 F 05/13/19 05:00 Pulse 67 05/13/19 05:00 Resp 18 05/13/19 05:00 BP 154/70 05/13/19 05:00 Pulse Ox 98 05/13/19 05:00 Intake & Output 05/12/19 05/13/19 05/13/19 18:59 06:59 18:59 Intake Total 120 600 240 Output Total 400 800 Balance -280 -200 240 Weight 84 kg Intake: Oral 0 Tube Feeding 120 600 240 Output: Urine 400 800 Uretheral (Matias) 400 Other: Voiding Method Indwelling Catheter Indwelling Catheter Indwelling Catheter - Labs CBC & Chem 7: 05/13/19 08:08 05/13/19 08:08 Labs: Abnormal Lab Results - Last 24 Hours (Table) 05/12/19 05/12/19 05/12/19 Range/Units 07:17 11:42 17:08 RBC (4.30-5.90) m/uL Hgb (13.0-17.5) gm/dL Hct (39.0-53.0) % Potassium (3.5-5.1) mmol/L Glucose (74-99) mg/dL POC Glucose (mg/dL) 146 H 166 H (75-99) mg/dL Hemoglobin A1c 9.2 H (4.0-6.0) % 05/12/19 05/12/19 05/13/19 Range/Units 19:54 23:46 06:14 RBC (4.30-5.90) m/uL Hgb (13.0-17.5) gm/dL Hct (39.0-53.0) % Potassium (3.5-5.1) mmol/L Glucose (74-99) mg/dL POC Glucose (mg/dL) 181 H 183 H 155 H (75-99) mg/dL Hemoglobin A1c (4.0-6.0) % 05/13/19 05/13/19 Range/Units 08:08 08:08 RBC 3.17 L (4.30-5.90) m/uL Hgb 10.0 L (13.0-17.5) gm/dL Hct 30.0 L (39.0-53.0) % Potassium 3.4 L (3.5-5.1) mmol/L Glucose 181 H (74-99) mg/dL POC Glucose (mg/dL) (75-99) mg/dL Hemoglobin A1c (4.0-6.0) % <Pierre Bhatti - Last Filed: 05/13/19 16:09> Subjective As above. Patient tolerating tube feeds at goal. We'll sign off. Please call if needed. Objective - Vital Signs Vital signs: Vital Signs Temp 98.3 F 05/13/19 05:00 Pulse 67 05/13/19 05:00 Resp 18 05/13/19 05:00 BP 154/70 05/13/19 05:00 Pulse Ox 98 05/13/19 05:00 Intake & Output 05/12/19 05/13/19 05/13/19 18:59 06:59 18:59 Intake Total 120 600 840 Output Total 400 800 Balance -280 -200 840 Weight 84 kg 84 kg Intake: Oral 0 Tube Feeding 120 600 840 Output: Urine 400 800 Uretheral (Matias) 400 Other: Voiding Method Indwelling Catheter Indwelling Catheter Indwelling Catheter - Labs CBC & Chem 7: 05/13/19 08:08 05/13/19 08:08 Labs: Abnormal Lab Results - Last 24 Hours (Table) 05/12/19 05/12/19 05/12/19 Range/Units 07:17 17:08 19:54 RBC (4.30-5.90) m/uL Hgb (13.0-17.5) gm/dL Hct (39.0-53.0) % Potassium (3.5-5.1) mmol/L Glucose (74-99) mg/dL POC Glucose (mg/dL) 166 H 181 H (75-99) mg/dL Hemoglobin A1c 9.2 H (4.0-6.0) % 05/12/19 05/13/19 05/13/19 Range/Units 23:46 06:14 08:08 RBC 3.17 L (4.30-5.90) m/uL Hgb 10.0 L (13.0-17.5) gm/dL Hct 30.0 L (39.0-53.0) % Potassium (3.5-5.1) mmol/L Glucose (74-99) mg/dL POC Glucose (mg/dL) 183 H 155 H (75-99) mg/dL Hemoglobin A1c (4.0-6.0) % 05/13/19 05/13/19 Range/Units 08:08 11:58 RBC (4.30-5.90) m/uL Hgb (13.0-17.5) gm/dL Hct (39.0-53.0) % Potassium 3.4 L (3.5-5.1) mmol/L Glucose 181 H (74-99) mg/dL POC Glucose (mg/dL) 206 H (75-99) mg/dL Hemoglobin A1c (4.0-6.0) %
[2019-05-13 11:59] LABS: Glucose,Whole Blood 206 mg/dL (75-99)
[2019-05-13] MEDS ORDERED: HYDROcodone/APAP 5-325MG 1 EACH TAB PO PRN (13:06)
--- NOTE | 2019-05-13 14:52 | P.DS ---
Providers Date of admission: 05/10/19 19:49 Expected date of discharge: 05/13/19 Attending physician: Bebeto Galvan Consults: 05/11/19 01:16 Consult Physician Routine Consulting Provider: Augustus Smith Consult Reason/Comments: Dysphagia, failed swallow eval, possible PEG Do you want consulting provider notified?: Yes, Notify in am Primary care physician: Thomas Pires Hospital Course: Final diagnosis Dysphagia with possible aspiration status post PEG tube placement Now on PEG tube feedings History of present previous transient ischemic attacks and dysphasia with PEG t ube replacement and removal Change in mental status, acute on chronic metabolic encephalopathy History of vocal cord issues Diabetes mellitus type 2 Hypertension Hyperlipidemia History of noncompliance History of depression history of nicotine dependence History of EtOH Gait dysfunction Hyponatremia History of mild pancytopenia of undetermined etiology Nephrolithiasis History of pancreatitis History of retinal detachment History of coronary artery disease/stent No Code, no CPR, no vent Discharge disposition The patient is being discharged in a stable condition with guarded prognosis to [facility]. Patient has received a PEG tube and will continue with PEG tube feedings. History of present illness This is an 79-year-old male was admitted with dysphasia who was had a previous PEG tube in the past with removal. Patient underwent a PEG tube placement by Dr. Smith on this admission. Patient was started on tube feedings and is working towards goal per dietary recommendations. Patient will continue to receive PEG tube feedings at [facility]. We are currently waiting on an authorization to return to [facility]. Case management and school social worker are following. Patient continues to be confused and unable to give a review of systems. Patient appears to be in no distress and is resting in bed but easily arousable. On exam vital signs are stable. Blood pressure is 154/70, pulse is 67, respirations are 18 and nonlabored, temp is 98.3F, oxygen saturation is 98% on 1 L of nasal cannula. Cardio S1 and S2 are normal. Respiratory shows diminished lung sounds in the bases with some expiratory wheezing noted. Abdomen is soft and non-tender with a PEG tube placed. Nervous system shows mild diffuse weakness. Please refer to the medication reconciliation sheet for list of medications. Plan - Discharge Summary Discharge Rx Participant: Yes New Discharge Prescriptions: New Levofloxacin [Levaquin] 500 mg PO DAILY #5 tab Albuterol Sulfate [Proair Hfa] 2 puff INHALATION Q6HR #1 inhaler Continue Omeprazole [PriLOSEC] 20 mg PO DAILY Lisinopril [Prinivil] 5 mg PO DAILY Furosemide [Lasix] 20 mg PO DAILY Isosorbide Mononitrate ER [Imdur] 30 mg PO DAILY Carvedilol [Coreg] 6.25 mg PO BID Aspirin EC [Ecotrin Low Dose] 81 mg PO DAILY Acetaminophen Tab [Tylenol] 650 mg PO Q4HR PRN PRN Reason: Fever And/ Or Pain Atorvastatin [Lipitor] 10 mg PO HS INSULIN ASPART (NovoLOG) [NovoLOG (formulary)] 15 unit SQ AC-TID INSULIN ASPART (NovoLOG) [NovoLOG (formulary)] See Protocol SQ Q6H Insulin Detemir [Levemir Flextouch] 30 units SQ BID Magnesium Hydroxide [Milk of Magnesia] 2,400 mg PO DAILY PRN PRN Reason: Constipation metFORMIN HCL [Glucophage] 500 mg PO BID Discharge Medication List Aspirin EC [Ecotrin Low Dose] 81 mg PO DAILY 02/22/18 [History] Carvedilol [Coreg] 6.25 mg PO BID 02/22/18 [History] Furosemide [Lasix] 20 mg PO DAILY 02/22/18 [History] Isosorbide Mononitrate ER [Imdur] 30 mg PO DAILY 02/22/18 [History] Lisinopril [Prinivil] 5 mg PO DAILY 02/22/18 [History] Omeprazole [PriLOSEC] 20 mg PO DAILY 02/22/18 [History] Acetaminophen Tab [Tylenol] 650 mg PO Q4HR PRN 05/10/19 [History] Atorvastatin [Lipitor] 10 mg PO HS 05/11/19 [History] INSULIN ASPART (NovoLOG) [NovoLOG (formulary)] 15 unit SQ AC-TID 05/11/19 [History] INSULIN ASPART (NovoLOG) [NovoLOG (formulary)] See Protocol SQ Q6H 05/11/19 [History] Insulin Detemir [Levemir Flextouch] 30 units SQ BID 05/11/19 [History] Magnesium Hydroxide [Milk of Magnesia] 2,400 mg PO DAILY PRN 05/11/19 [History] metFORMIN HCL [Glucophage] 500 mg PO BID 05/11/19 [History] Albuterol Sulfate [Proair Hfa] 2 puff INHALATION Q6HR #1 inhaler 05/13/19 [Rx] Levofloxacin [Levaquin] 500 mg PO DAILY #5 tab 05/13/19 [Rx] Follow up Appointment(s)/Referral(s): [facility], [NON-STAFF] - Activity/Diet/Wound Care/Special Instructions: Patient is returning to [facility] Activity limited until follow-up Follow tube feeding instructions per hand cigar maker Care Plan Goals (MU): Tube feeding guidelines as follows: Glucerna 1.2 at goal rate of 75 ml/hr with 100 ml free water flush every 4 hours which will provide 1800 ml, 2160 kcal, 108 gms of protein and 1449 ml free water.
--- NOTE | 2019-05-13 15:36 | DS ---
DISCHARGE SUMMARY DATE OF SERVICE: 05/13/2019 FINAL DIAGNOSES: 1. Dysphagia with possible aspiration, status post PEG tube placement. 2. On PEG tube feeds. 3. Purulent tracheobronchitis. 4. History of previous transient ischemic attack and dysphagia. PEG tube placement and removal. 5. Change in mental status, acute on chronic metabolic encephalopathy. 6. History of vocal cord issues. 7. Diabetes mellitus type 2. 8. Hypertension. 9. Hyperlipidemia. 10.History of noncompliance. 11.History of depression. 12.History of nicotine dependence. 13.History of ETOH. 14.Gait dysfunction. 15.Hyponatremia. 16.History of mild pancytopenia of undetermined etiology. 17.Nephrolithiasis. 18.History of pancreatitis. 19.History of ocular detachment. 20.History of coronary artery disease, stent. 21.NO CODE, NO CPR, NO VENT. DISCHARGE DISPOSITION: Patient will be discharged in a stable condition with guarded prognosis. HISTORY OF PRESENT ILLNESS: This is an 79-year-old gentleman with a past medical history of multiple medical problems including dysphagia. The patient also has suspected aspiration. Dr. Smith performed a PEG tube feeds. Please note the patient was previously on a PEG tube feeds, which was discontinued, but currently the PEG tube feeds are started again. The patient tolerated the procedure well. Otherwise, there is no history of fever, rigors. No headache, loss of consciousness or seizures. PHYSICAL EXAMINATION: Vitals are stable. CARDIOVASCULAR: S1, S2, muffled. RESPIRATION: Breath sounds diminished at the bases, a few scattered rhonchi. ABDOMEN: Soft. NERVOUS SYSTEM: No focal discharge. DISCHARGE ADVICE: Diet is cardiac diet, activity limited until followup. Follow up with Dr. Thomas Pires in 2-3 days. Follow up with primary physician in 2-3 days. MEDICATIONS: Are as follows: 1. Coreg 6.25 mg p.o. b.i.d. 2. Ecotrin 81 mg p.o. daily. 3. Glucophage 500 mg p.o. b.i.d. 4. Imdur 30 mg p.o. daily. 5. Lasix 20 mg p.o. daily. 6. Levemir 30 units subcu b.i.d. 7. Lipitor 10 mg q.h.s. 8. Magnesium 2.4 g daily p.r.n. 9. NovoLog 15 units t.i.d. and protocol. 10.Prilosec 20 mg p.o. daily. 11.Prinivil 5 mg daily. 12.Tylenol 650 q.4 p.r.n. 13.ProAir 2 puffs t.i.d. 14.Levaquin 500 mg p.o. daily for 5 days. MMOTILIOL / PHILIPPN: [id number] /
[2019-05-13 17:10] LABS: Glucose,Whole Blood 215 mg/dL (75-99)
[2019-05-13 23:24] LABS: Glucose,Whole Blood 297 mg/dL (75-99)
[2019-05-13 23:52] LABS: Glucose,Whole Blood 291 mg/dL (75-99)
[2019-05-14] MEDS: INSULIN ASPART (NovoLOG) 100 UNIT/ML VIAL SQ SCH ×4 (00:13→17:28)
[2019-05-14] MEDS: DOXYCYCLINE 100 MG CAP PO SCH ×2 (00:14→08:32)
[2019-05-14] MEDS: SODIUM CHLORIDE 0.9% 1,000 ML IV SCH ×2 (02:41→12:54)
[2019-05-14 06:03] LABS: Glucose,Whole Blood 324 mg/dL (75-99)
[2019-05-14] MEDS: HEPARIN SODIUM,PORCINE 5,000 UNIT/ML 1 ML VIAL SQ SCH ×2 (08:31→22:10)
[2019-05-14] MEDS: INSULIN DETEMIR (LEVEMIR) 100 UNIT/ML SYR SQ SCH ×2 (08:32→22:10)
[2019-05-14] MEDS: LISINOPRIL 5 MG TAB PO SCH (08:32)
[2019-05-14] MEDS: PANTOPRAZOLE 40 MG/10 ML VIAL IVP SCH ×2 (08:32→20:57)
[2019-05-14 10:55] LABS: African American GFR (CKD) >90 (>60 ml/min/1.73 sqM); Anion Gap 7 mmol/L; Blood Urea Nitrogen 15 mg/dL (9-20); Calcium 8.6 mg/dL (8.4-10.2); Carbon Dioxide 32 mmol/L (22-30); Chloride 97 mmol/L (98-107); Glucose 349 mg/dL (74-99); Potassium 4.1 mmol/L (3.5-5.1); Sodium 136 mmol/L (137-145)
[2019-05-14 11:05] LABS: Glucose,Whole Blood 358 mg/dL (75-99)
[2019-05-14 11:43] LABS: Basophils % (A) 1 %; Eosinophils # (A) 0.1 k/uL (0-0.7); Eosinophils % (A) 2 %; HCT 28.4 % (39.0-53.0); HGB 9.3 gm/dL (13.0-17.5); Hypochromasia Slight; Lymphocytes # (A) 1.3 k/uL (1.0-4.8); Lymphocytes % (A) 26 %; MCH 31.8 pg (25.0-35.0); MCHC 32.9 g/dL (31.0-37.0); MCV 96.7 fL (80.0-100.0); Mean Platelet Volume 8.6; Monocytes # (A) 0.4 k/uL (0-1.0); Monocytes % (A) 9 %; Neutrophils # (A) 3.2 k/uL (1.3-7.7); Neutrophils % (A) 62 %; Platelet Count 182 k/uL (150-450); Poikilocytosis Slight; RBC 2.94 m/uL (4.30-5.90); RDW 14.9 % (11.5-15.5); WBC 5.1 k/uL (3.8-10.6)
[2019-05-14 13:33] LABS: Large Platelets Present
[2019-05-14] MEDS ORDERED: INSULIN DETEMIR (LEVEMIR) 100 UNIT/ML SYR SQ STA (16:20)
--- NOTE | 2019-05-14 16:31 | PN ---
PROGRESS NOTE DATE OF SERVICE: 05/13/2019 This 79-year-old gentleman who was admitted with dysphagia, possibly aspiration, also had a PEG tube placement. PEG tube feeds have been started. The patient is being evaluated for ECF rehab. No chest pain. No palpitations. No fever. On exam, alert and oriented x2. Pulse 67, blood pressure 154/70, respiration 18, temperature 98.3, pulse ox 98% on 1 L. HEENT: Conjunctivae normal. NECK: No jugular venous distention. CARDIOVASCULAR SYSTEM: S1, S2 muffled. RESPIRATORY SYSTEM: Breath sounds diminished at the bases. Bilateral scattered rhonchi and crackles. ABDOMEN: Soft, non-tender. PEG tube in situ. LEGS: No edema. No swelling. NERVOUS SYSTEM: No focal deficit. LABS: WBC 4.4, hemoglobin 10. Sodium 138, potassium 3.4. ASSESSMENT: 1. Dysphagia with possible aspiration, status post PEG tube placement; on PEG tube feeds. 2. Acute purulent tracheobronchitis. 3. History of previous transient ischemic attack with dysphagia, PEG tube placement and removal. 4. Change in mental status, acute on chronic metabolic encephalopathy. 5. History of vocal cord issues. 6. Diabetes mellitus, type 2. 7. Hypertension. 8. Hyperlipidemia. 9. History of noncompliance. 10.History of depression. 11.History of nicotine dependence. 12.History of ethanol. 13.Gait dysfunction. 14.Hyponatremia. 15.History of mild pancytopenia of undetermined etiology. 16.Nephrolithiasis. 17.History of pancreatitis. 18.History of ocular detachment. 19.History of coronary artery disease, stent. 20.NO CODE, NO CPR, NO VENT. RECOMMENDATIONS AND DISCUSSION: I recommend to continue current medications, continue with the monitoring, symptomatic treatment. Otherwise at this time we will monitor the patient closely. Continue with tube feeds. Await preauthorization for rehab. Guarded prognosis because of multiple complex medical issues. Further recommendations to follow. MMODL / IJN: [id number] /
--- NOTE | 2019-05-14 16:58 | PN ---
PROGRESS NOTE DATE OF SERVICE: 05/14/2019. This 79-year-old gentleman who was admitted with dysphagia also had multiple other medical problems. Patient also had previous dysphagia and PEG tube placement inserted and removed, but currently the tube feeds are initiated and the patient case manager and discharge planning team are waiting for preauthorization. Patient is being closely monitored. Of note, the blood sugars are elevated, at 181, 206, 215, 297. No chest pain. No palpitation. REVIEW OF SYSTEMS: CARDIOVASCULAR SYSTEM: No angina, palpitations. RESPIRATORY SYSTEM: As mentioned earlier. GI: As mentioned earlier. : No dysuria or retention. NERVOUS SYSTEM: Mild diffuse weakness. CURRENT MEDICATIONS: Reviewed. They include: 1. [place] 5 mg q.6 p.r.n. 2. Vibramycin 100 mg p.o. b.i.d. 3. Heparin 5000 units subcutaneously b.i.d. 4. Apresoline 10 mg q.4 p.r.n. 5. Dilaudid 0.5 mg q.4 p.r.n. 6. NovoLog scale. 7. Levemir 30 units b.i.d. 8. Zestril 5 mg p.o. daily. 9. Ativan 0.5 mg q.6. 10.Protonix 40 mg IV b.i.d. PHYSICAL EXAMINATION: On exam, alert and oriented x3. Pulse 71, blood pressure 158/69, respirations 16, temperature 99.1, pulse ox 92% on room air. HEENT: Conjunctivae normal. NECK: No jugular venous distention. CARDIOVASCULAR SYSTEM: S1, S2 muffled. RESPIRATORY SYSTEM: Breath sounds diminished at the bases. A few scattered rhonchi. No crackles. ABDOMEN: Soft, status post PEG tube placement. LEGS: No edema. No swelling. NERVOUS SYSTEM: Diffusely weak. LABS: WBC 5.9, hemoglobin 9.3. Sodium 136, potassium 4.1. Glucose is 349 and 358. ASSESSMENT: 1. Dysphagia with possible aspiration, status post PEG tube placement. 2. On PEG tube feeds. 3. Acute purulent tracheobronchitis. 4. History of previous transient ischemic attack and dysphagia, PEG tube placement and removal. 5. Change in mental status, acute on chronic metabolic encephalopathy. 6. History of vocal cord issues. 7. Diabetes mellitus, type 2. 8. Hypertension. 9. Hyperlipidemia. 10.History of noncompliance. 11.History of depression. 12.History of nicotine dependence. 13.History of ethanol. 14.Gait dysfunction. 15.Hyponatremia. 16.History of mild pancytopenia, undetermined etiology. 17.Nephrolithiasis. 18.History of pancreatitis. 19.History of ocular detachment. 20.History of coronary artery disease, stent. 21.NO CODE, NO CPR, NO VENT. RECOMMENDATIONS AND DISCUSSION: In this 79-year-old gentleman who presented with multiple complex medical issues, we will monitor the patient closely, continue the current medications, continue with symptomatic treatment. Apparently the preauthorization is not due yet. Will discuss with staff. Will discuss with the patient case manager regarding that. Otherwise, blood sugar is also increasing. I recommend increasing the Levemir to 40 units subcutaneously b.i.d. and continue the scale, also. At this time the patient is on Glucerna. We will continue to monitor. Overall prognosis is guarded. I would also recommend continuing the rest of the medications as well. Recommend using a scale which goes up to 400. MMODL / IJN: [id number] /
[2019-05-14] MEDS ORDERED: LEVOFLOXACIN 500MG-D5W PMX 500 MG in DEXTROSE/WATER 1 100ML.BAG IVPB SCH (17:00)
[2019-05-14 17:07] LABS: Glucose,Whole Blood 369 mg/dL (75-99)
--- NOTE | 2019-05-14 21:55 | XR ---
EXAMINATION TYPE: XR chest 1V portable DATE OF EXAM: 05/14/2019 Comparison: 02/28/2018 Clinical History: 79-year-old male Cough, SOB Findings: Heart normal size. Aorta within normal limits. Hazy peripheral lung densities related to overlying so ft tissue. No consolidation or pleural effusion. Relative upper lung lucencies. Impression: Possible underlying COPD. No definite acute cardiopulmonary process.
[2019-05-14] MEDS: LEVOFLOXACIN 500 MG TAB PEG/G-TUBE SCH (22:10)
[2019-05-15 00:05] LABS: Glucose,Whole Blood 313 mg/dL (75-99)
[2019-05-15] MEDS: INSULIN ASPART (NovoLOG) 100 UNIT/ML VIAL SQ SCH ×4 (01:03→18:31)
[2019-05-15 04:32] LABS: Glucose,Whole Blood 281 mg/dL (75-99)
[2019-05-15 05:48] LABS: Glucose,Whole Blood 285 mg/dL (75-99)
[2019-05-15 07:48] LABS: Basophils % (A) 1 %; Eosinophils # (A) 0.1 k/uL (0-0.7); Eosinophils % (A) 2 %; HCT 29.5 % (39.0-53.0); Lymphocytes # (A) 1.4 k/uL (1.0-4.8); Lymphocytes % (A) 24 %; MCH 32.2 pg (25.0-35.0); MCHC 33.9 g/dL (31.0-37.0); MCV 95.1 fL (80.0-100.0); Mean Platelet Volume 8.5; Monocytes # (A) 0.5 k/uL (0-1.0); Monocytes % (A) 9 %; Neutrophils # (A) 3.7 k/uL (1.3-7.7); Neutrophils % (A) 62 %; Platelet Count 218 k/uL (150-450); Poikilocytosis Slight; RDW 14.8 % (11.5-15.5)
[2019-05-15 08:04] LABS: African American GFR (CKD) >90 (>60 ml/min/1.73 sqM); Anion Gap 9 mmol/L; Blood Urea Nitrogen 19 mg/dL (9-20); Calcium 9.3 mg/dL (8.4-10.2); Carbon Dioxide 32 mmol/L (22-30); Chloride 97 mmol/L (98-107); Glucose 275 mg/dL (74-99); Potassium 4.2 mmol/L (3.5-5.1); Sodium 138 mmol/L (137-145)
[2019-05-15] MEDS: HEPARIN SODIUM,PORCINE 5,000 UNIT/ML 1 ML VIAL SQ SCH ×2 (08:42→21:14)
[2019-05-15] MEDS: INSULIN DETEMIR (LEVEMIR) 100 UNIT/ML SYR SQ SCH ×2 (08:42→21:14)
[2019-05-15] MEDS: PANTOPRAZOLE 40 MG/10 ML VIAL IVP SCH ×2 (08:42→21:14)
[2019-05-15] MEDS: LISINOPRIL 5 MG TAB PO SCH (08:43)
[2019-05-15 11:49] LABS: Glucose,Whole Blood 259 mg/dL (75-99)
[2019-05-15 16:57] VITALS: BMI 24.3
[2019-05-15 18:35] LABS: Glucose,Whole Blood 182 mg/dL (75-99)
--- NOTE | 2019-05-15 18:43 | PN ---
PROGRESS NOTE DATE OF SERVICE: 05/15/2019 HISTORY OF PRESENT ILLNESS: This 79-year-old gentleman who was admitted with dysphagia had multiple other medical problems. The patient had a PEG tube inserted and tube feeds were restarted last night. The patient had difficulty with the tube feeds and aspiration suspected and tube feeds on hold at this time. It seems to me like the patient is unable to maintain a slanted head of the bed elevated 40 degree position and the patient is sliding down. The patient might have had aspiration. Otherwise, the most recent chest x-ray done today did not show any acute abnormality at this time. The patient continues to be drowsy at this time. PAST MEDICAL HISTORY: Reviewed. REVIEW OF SYSTEMS: Could not be taken. The patient is rather drowsy at this time. CURRENT MEDICATIONS ARE: 1. [place] 5 mg q.6h p.r.n. 2. Heparin 500 subcu b.i.d. 3. Apresoline 10 mg q.4 p.r.n. 4. Dilaudid 0.5 q.4 p.r.n. 5. NovoLog scale. 6. Levemir 40 units subcu b.i.d. 7. Levaquin 500 mg per PEG q.h.s. 8. Zestril 5 mg p.o. daily. 9. Ativan 0.5 mg q.6 p.r.n. 10.Protonix 40 mg IV b.i.d. PHYSICAL EXAMINATION: Patient is stuporous but arousable. Pulse 73, blood pressure 127/64. Respiration 15, temperature 97.2, pulse ox 98% on room air. HEENT: Conjunctivae normal. Oral mucosa moist. NECK is no jugular venous distention. No carotid bruit. No lymph node enlargement. CARDIOVASCULAR: S1, S2 muffled. No S3, no S4. RESPIRATORY: Breath sounds diminished in the bases. A few scattered rhonchi and crackles. ABDOMEN: Soft. Status post PEG tube placement. Bowel sounds present. No ascites. LEGS: No edema. No swelling. NERVOUS SYSTEM: Diffusely weak. LABS: Investigations at this time shows: WBC 6, hemoglobin is 10, sodium 130. Potassium 4.2. Glucose 259. ASSESSMENT: 1. Dysphagia with possible aspiration status post PEG tube placement. 2. On PEG tube feeds. 3. Acute purulent tracheobronchitis. 4. Change in mental status, metabolic encephalopathy, multifactorial. 5. History of previous transient ischemic attack and dysphagia, PEG tube placement and removal. 6. Acute on chronic metabolic encephalopathy. 7. History of vocal cord issues. 8. Diabetes type 2. 9. Hypertension. 10.Hyperlipidemia. 11.History of noncompliance. 12.History of depression. 13.History of nicotine dependence. 14.History of ETOH. 15.Gait dysfunction. 16.Hyponatremia. 17.History of mild pancytopenia of undetermined etiology. 18.Nephrolithiasis. 19.History of pancreatitis. 20.History of ocular detachment. 21.History of coronary artery disease, stent. 22.NO CODE, NO CPR, NO VENT. RECOMMENDATIONS AND DISCUSSION: This 79-year-old gentleman who presented with multiple medical problems. The patient possibly had an episode of aspiration last night. Chest x-ray showed no active lesions. I would recommend to restart the tube feeds at a lower level at 40 mL/hour. Strict aspiration precautions. Head of the bed elevated to 45 degrees. the head of the bed to maintain this. Otherwise, I would also recommend we continue with PT/OT evaluation, possible ECF rehab also. Otherwise, the insulin dose will continuously being updated and continue to monitor. Further recommendations to follow. Increase the Lantus to 50 b.i.d. MMOTILIOL / PHILIPPN: [id number] /
[2019-05-15] MEDS: LEVOFLOXACIN 500 MG TAB PEG/G-TUBE SCH (21:14)
[2019-05-16 00:20] LABS: Glucose,Whole Blood 212 mg/dL (75-99)
[2019-05-16] MEDS: INSULIN ASPART (NovoLOG) 100 UNIT/ML VIAL SQ SCH ×3 (00:21→13:04)
[2019-05-16 06:15] LABS: Glucose,Whole Blood 278 mg/dL (75-99)
[2019-05-16 07:42] LABS: Basophils % (A) 1 %; Eosinophils # (A) 0.1 k/uL (0-0.7); Eosinophils % (A) 3 %; HCT 28.4 % (39.0-53.0); HGB 9.3 gm/dL (13.0-17.5); Hypochromasia Slight; Lymphocytes # (A) 1.3 k/uL (1.0-4.8); Lymphocytes % (A) 27 %; MCH 31.7 pg (25.0-35.0); MCHC 32.8 g/dL (31.0-37.0); MCV 96.4 fL (80.0-100.0); Mean Platelet Volume 8.4; Monocytes # (A) 0.5 k/uL (0-1.0); Monocytes % (A) 10 %; Neutrophils # (A) 2.8 k/uL (1.3-7.7); Neutrophils % (A) 58 %; Platelet Count 238 k/uL (150-450); Poikilocytosis Slight; RBC 2.95 m/uL (4.30-5.90); RDW 15.2 % (11.5-15.5); WBC 4.9 k/uL (3.8-10.6)
[2019-05-16 07:58] LABS: African American GFR (CKD) >90 (>60 ml/min/1.73 sqM); Anion Gap 8 mmol/L; Blood Urea Nitrogen 22 mg/dL (9-20); Calcium 9.2 mg/dL (8.4-10.2); Carbon Dioxide 32 mmol/L (22-30); Chloride 97 mmol/L (98-107); Glucose 303 mg/dL (74-99); Potassium 4.4 mmol/L (3.5-5.1); Sodium 137 mmol/L (137-145)
[2019-05-16] MEDS: PANTOPRAZOLE 40 MG/10 ML VIAL IVP SCH (09:03)
[2019-05-16] MEDS: INSULIN DETEMIR (LEVEMIR) 100 UNIT/ML SYR SQ SCH (09:03)
[2019-05-16] MEDS: HEPARIN SODIUM,PORCINE 5,000 UNIT/ML 1 ML VIAL SQ SCH (09:03)
[2019-05-16] MEDS: LISINOPRIL 5 MG TAB PO SCH (09:03)
[2019-05-16 11:38] LABS: Glucose,Whole Blood 357 mg/dL (75-99)
[2019-05-16 12:31] VITALS: BP 133/64; PULSE 71; RESP 17; TEMP 98.3
[2019-05-16] MEDS ORDERED: INSULIN ASPART (NovoLOG) 100 UNIT/ML VIAL SQ ONE (13:04)
== END 2019-05-16 14:45 | DRG 391 ==
LOC: 3NMEDONC 19:49
PROVIDERS: ADMIT Internal Medicine; ATTEND Internal Medicine
PROC: 3E0G76Z Introduction of Nutritional Substance into Upper GI, Via Natural or Artificial Opening (ICD-10-PCS; 2019-05-11)
PROC: 0DH63UZ Insertion of Feeding Device into Stomach, Percutaneous Approach (ICD-10-PCS; principal; 2019-05-11 07:30)
DX: R13.10 Dysphagia, unspecified (principal); G93.41 Metabolic encephalopathy; E43 Unspecified severe protein-calorie malnutrition; D61.818 Other pancytopenia; E87.1 Hypo-osmolality and hyponatremia; E11.9 Type 2 diabetes mellitus without complications; E78.5 Hyperlipidemia, unspecified; F10.21 Alcohol dependence, in remission; F32.9 Major depressive disorder, single episode, unspecified; H91.90 Unspecified hearing loss, unspecified ear; I10 Essential (primary) hypertension; I25.10 Atherosclerotic heart disease of native coronary artery without angina pectoris; I25.2 Old myocardial infarction; J40 Bronchitis, not specified as acute or chronic; N20.0 Calculus of kidney; R47.02 Dysphasia; Z79.4 Long term (current) use of insulin; Z79.82 Long term (current) use of aspirin; Z79.899 Other long term (current) drug therapy; Z85.21 Personal history of malignant neoplasm of larynx; Z86.73 Personal history of transient ischemic attack (TIA), and cerebral infarction without residual deficits; Z87.891 Personal history of nicotine dependence; Z91.19 Patient's noncompliance with other medical treatment and regimen; Z95.5 Presence of coronary angioplasty implant and graft; R26.9 Unspecified abnormalities of gait and mobility; Z66 Do not resuscitate; Z90.49 Acquired absence of other specified parts of digestive tract
CPT/HCPCS: 43246; 70450; 71045; 80048; 83036; 83605; 85025

== ENCOUNTER 2019-08-26 23:43 | Inpatient (IN) | payer MEDICARE, OTHER ==
[2019-08-27] MEDS ORDERED: ONDANSETRON 4 MG/2 ML VIAL IVP PRN (00:17)
[2019-08-27] MEDS ORDERED: METOCLOPRAMIDE 5 MG/ML 2 ML VIAL IVP PRN (00:17)
[2019-08-27] MEDS ORDERED: LORazepam 2 MG/ML INJ IV PRN (00:17)
[2019-08-27] MEDS ORDERED: GLYCOPYRROLATE 0.2 MG/ML 2 ML VIAL IVP PRN (00:17)
[2019-08-27] MEDS ORDERED: DRY MOUTH SPRAY 44.3 SPRAY/44.3 ML SPRAY MUCOUS MEM PRN (00:17)
[2019-08-27] MEDS ORDERED: ARTIFICIAL TEARS-HYPROMELLOSE DROPS 15 ML BTL BOTH EYES PRN (00:17)
[2019-08-27 00:26] LABS: Albumin 2.9 g/dL (3.5-5.0); Calcium 8.3 mg/dL (8.4-10.2); Magnesium 2.5 mg/dL (1.6-2.3); Total Bilirubin 0.6 mg/dL (0.2-1.3)
[2019-08-27 00:33] LABS: Anisocytosis Slight; Basophils # (A) 0.3 k/uL (0-0.2); Basophils % (A) 2 %; Eosinophils # (A) 0.1 k/uL (0-0.7); Eosinophils % (A) 0 %; HCT 29.4 % (39.0-53.0); HGB 9.3 gm/dL (13.0-17.5); Lymphocytes # (A) 2.5 k/uL (1.0-4.8); Lymphocytes % (A) 20 %; MCH 30.6 pg (25.0-35.0); MCHC 31.7 g/dL (31.0-37.0); MCV 96.3 fL (80.0-100.0); Macrocytosis Slight; Monocytes # (A) 1.5 k/uL (0-1.0); Monocytes % (A) 12 %; Neutrophils # (A) 7.9 k/uL (1.3-7.7); Neutrophils % (A) 63 %; Platelet Count 148 k/uL (150-450); Poikilocytosis Slight; RBC 3.05 m/uL (4.30-5.90); WBC 12.6 k/uL (3.8-10.6)
[2019-08-27 00:37] LABS: Potassium 6.1 mmol/L (3.5-5.1)
--- NOTE | 2019-08-27 00:41 | ED ---
General Adult HPI - General Chief complaint: Shortness of Breath Stated complaint: sepsis Time Seen by Provider: 08/26/19 23:48 Source: EMS Mode of arrival: EMS - History of Present Illness Initial comments: Byron is an 79-year-old male with extensive past medical history who arrives in our emergency department via EMS as a transfer from an outside hospital. Patient presented to the outside hospital with altered mental status, labs and imaging were obtained. Patient was treated for possible aspiration pneumonia with Zosyn and given 3 L of IV fluid due to lab evidence of dehydration and hypotension. At that time patient's made it clear to the provider that the patient was DO NOT RESUSCITATE and patient was transferred to our facility for admission and further care. - Related Data Home Medications Medication Instructions Recorded Confirmed Aspirin EC [Ecotrin Low Dose] 81 mg PO DAILY 02/22/18 05/11/19 Carvedilol [Coreg] 6.25 mg PO BID 02/22/18 05/11/19 Furosemide [Lasix] 20 mg PO DAILY 02/22/18 05/11/19 Isosorbide Mononitrate ER [Imdur] 30 mg PO DAILY 02/22/18 05/11/19 Lisinopril [Prinivil] 5 mg PO DAILY 02/22/18 05/11/19 Omeprazole [PriLOSEC] 20 mg PO DAILY 02/22/18 05/11/19 Acetaminophen Tab [Tylenol] 650 mg PO Q4HR PRN 05/10/19 05/11/19 Atorvastatin [Lipitor] 10 mg PO HS 05/11/19 05/11/19 INSULIN ASPART (NovoLOG) [NovoLOG 15 unit SQ AC-TID 05/11/19 05/11/19 (formulary)] INSULIN ASPART (NovoLOG) [NovoLOG See Protocol SQ Q6H 05/11/19 05/11/19 (formulary)] Magnesium Hydroxide [Milk of 2,400 mg PO DAILY PRN 05/11/19 05/11/19 Magnesia] metFORMIN HCL [Glucophage] 500 mg PO BID 05/11/19 05/11/19 Previous Rx's Medication Instructions Recorded Albuterol Sulfate [Proair Hfa] 2 puff INHALATION Q6HR #1 inhaler 05/13/19 Levofloxacin [Levaquin] 500 mg PO DAILY #5 tab 05/13/19 Insulin Detemir [Levemir Flextouch] 60 units SQ BID #0 05/16/19 Allergies Allergy/AdvReac Type Severity Reaction Status Date / Time No Known Allergies Allergy Verified 05/11/19 10:37 Review of Systems ROS Statement: Those systems with pertinent positive or pertinent negative responses have been documented in the HPI. ROS Other: All systems not noted in ROS Statement are negative. Past Medical History Past Medical History: Coronary Artery Disease (CAD), Cancer, Diabetes Mellitus, Hyperlipidemia, Hypertension, Myocardial Infarction ([place]) Additional Past Medical History / Comment(s): kidney stones, pancreatitis, vocal cord cancer, detached retina, Hard of Hearing, recovering alcoholic (stopped drinking 1984) Last Myocardial Infarction Date:: 2012 History of Any Multi-Drug Resistant Organisms: None Reported Past Surgical History: Cholecystectomy, Heart Catheterization With Stent Past Anesthesia/Blood Transfusion Reactions: No Reported Reaction Date of Last Stent Placement:: 2015 Past Psychological History: Unable to Obtain, Depression Smoking Status: Former smoker Past Alcohol Use History: Abuse Past Drug Use History: Unable to Obtain - Past Family History Father History Unknown: Yes Course Vital Signs 08/26/19 08/26/19 23:45 23:53 Temperature 98.5 F Pulse Rate 76 Respiratory 28 H 28 H Rate Blood Pressure 80/44 O2 Sat by Pulse 99 Oximetry Medical Decision Making - Medical Decision Making Patient was treated for sepsis, acute kidney injury and hyperkalemia outside facility. Upon arrival the patient is minimally responsive. He moans to pain. He has open mouth breathing, audible rails. Patient remains hypotensive. Patient care was again discussed with his who states that her goal would be hospice or comfort care at this time. She does not want aggressive care she will not consent to a central line, she does not want pressors or resuscitation measures. Patient care was discussed with Dr Montague who accepts admission with comfort care orders. Disposition Clinical Impression: Congestive heart failure, Metabolic encephalopathy, Aspiration pneumonia, Septic shock Disposition: ADMITTED IP TO THIS HOSP Condition: Critical Referrals: [facility] [REFERRING] - 1-2 days
[2019-08-27] MEDS: ATROPINE OPHTH SOLN 1% 5ML BTL SUBLINGUAL PRN ×2 (02:01→07:17)
[2019-08-27 02:11] VITALS: BMI 24.6
[2019-08-27 05:55] VITALS: BP 93/56; PULSE 78; RESP 22; TEMP 97.8
[2019-08-27] MEDS: MORPHINE SULFATE 2 MG/ML SYRINGE IV PRN ×2 (08:51→13:24)
[2019-08-27] MEDS ORDERED: MAGNESIUM HYDROXIDE 2,400 MG/10 ML CUP PO PRN (10:27)
[2019-08-27] MEDS ORDERED: ACETAMINOPHEN TAB 325 MG TAB PO PRN (10:27)
[2019-08-27] MEDS ORDERED: SCOPOLAMINE 1.5MG/72HR PATCH TRANSDERM STA (12:09)
--- NOTE | 2019-08-27 12:10 | P.HPIM ---
History of Present Illness this is a pleasant 79 years old male with past medical history of coronary artery disease,diabetes mellitus, hyperlipidemia, hypertension, kidney stones, pancreatitis, vocal cord cancer, detached trending Luann, hard of hearing, poss ible stroke, deconditioning. Patient was admitted to the hospital for hospice care. As per and son at bedside patient has gradual deterioration over more than one year ago. When patient started having memory difficulty and frequent falling, he eventually presented to the hospital and rehab for , taking care of him. Also patient was diagnosed with laryngeal cancer and he got chemo and r adiotherapy, he has PEG tube but no tracheostomy. Family are not sure about metastatic disease however patient over the last 3 months has been unresponsive and he was sent to the emergency room, suspected to have stroke and that time. In the ECF patient developed pneumonia as per family and his been trying to be treated for about a month with no improvement, eventually family decided for hospice and comfort care bases on under knowledge about patient wishes. Patient currently looks comfortable and unresponsive. As per history the patient was early tachypneic however his breathing quarter today after initiation of therapy. All questions from the family were answered and they agree with the plan. Also patient will be evaluated by hospice nurse this morning Review of Systems N/a Past Medical History Past Medical History: Coronary Artery Disease (CAD), Cancer, Diabetes Mellitus, Hyperlipidemia, Hypertension, Myocardial Infarction ([place]) Additional Past Medical History / Comment(s): kidney stones, pancreatitis, vocal cord cancer, detached retina, Hard of Hearing, recovering alcoholic (stopped drinking 1984) Last Myocardial Infarction Date:: 2012 History of Any Multi-Drug Resistant Organisms: None Reported Past Surgical History: Cholecystectomy, Heart Catheterization With Stent Past Anesthesia/Blood Transfusion Reactions: No Reported Reaction Date of Last Stent Placement:: 2015 Past Psychological History: Unable to Obtain, Depression Smoking Status: Former smoker Past Alcohol Use History: Abuse Additional Past Alcohol Use History / Comment(s): recovering alcoholic Past Drug Use History: Unable to Obtain - Past Family History Father History Unknown: Yes Medications and Allergies Home Medications Medication Instructions Recorded Confirmed Type Aspirin EC [Ecotrin Low Dose] 162 mg PO DAILY 02/22/18 08/27/19 History Carvedilol [Coreg] 6.25 mg PO BID 02/22/18 08/27/19 History Furosemide [Lasix] 20 mg PO DAILY 02/22/18 08/27/19 History Lisinopril [Prinivil] 5 mg PO DAILY 02/22/18 08/27/19 History Omeprazole [PriLOSEC] 20 mg PO DAILY 02/22/18 08/27/19 History Acetaminophen Tab [Tylenol] 650 mg PO Q4HR PRN 05/10/19 08/27/19 History Atorvastatin [Lipitor] 10 mg PO HS 05/11/19 08/27/19 History Magnesium Hydroxide [Milk of 2,400 mg PO Q48H PRN 05/11/19 08/27/19 History Magnesia] Albuterol Nebulized [Ventolin 2.5 mg INHALATION RT-Q6H PRN 08/27/19 08/27/19 History Nebulized] Citalopram Hydrobromide [CeleXA] 20 mg PO HS 08/27/19 08/27/19 History HYDROcodone/APAP 5-325MG [[place] 1 tab PO Q12H PRN 08/27/19 08/27/19 History 5-325] Insulin Detemir (Levemir) [Levemir] 0 unit SQ DIRECTED 08/27/19 08/27/19 History Insulin Glargine,Hum.rec.anlog 0 unit SQ DIRECTED 08/27/19 08/27/19 History [Basaglar Yamilepen U-100] Isosorbide Dinitrate 10 mg PO TID 08/27/19 08/27/19 History Ketoconazole 2% Cream [Nizoral 2%] 1 applic TOPICAL HS 08/27/19 08/27/19 History metFORMIN HCL [Riomet] 500 mg PO BID 08/27/19 08/27/19 History Allergies Allergy/AdvReac Type Severity Reaction Status Date / Time No Known Allergies Allergy Verified 08/27/19 08:35 Physical Exam Vitals: Vital Signs Temp Pulse Pulse Resp BP BP Pulse Ox 08/27/19 05:54 97.8 F 78 22 93/56 98 08/27/19 02:10 98.9 F 76 26 H 95/56 99 08/27/19 00:40 76 28 H 88/37 98 08/26/19 23:53 28 H 08/26/19 23:45 98.5 F 76 28 H 80/44 99 Intake and Output 08/26/19 08/27/19 08/27/19 22:59 06:59 14:59 Other: Voiding Method Incontinent # Voids 0 # Bowel Movements 0 Weight 82.327 kg GENERAL: The patient is unresponsiveand pale HEENT: Pupils are round and equally reacting to light. EOMI. No scleral icterus. No conjunctival pallor. Normocephalic, atraumatic. No pharyngeal erythema. No thyromegaly. CARDIOVASCULAR: S1 and S2 present. No murmurs, rubs, or gallops. -PULMONARY:liver to presents with bilateral coarse crepitation and scattered wheezes ABDOMEN: Soft, nontender, nondistended, normoactive bowel sounds. No palpable organomegaly. MUSCULOSKELETAL: No joint swelling or deformity. EXTREMITIES: No cyanosis, clubbing, or pedal edema. NEUROLOGICAL: Gross neurological examination did not reveal any focal deficits. SKIN: No rashes. no petechiae. Results CBC & Chem 7: 08/27/19 00:01 08/27/19 00:01 Labs: Abnormal Lab Results - Last 24 Hours (Table) 08/27/19 08/27/19 08/27/19 Range/Units 00:01 00:01 00:01 WBC 12.6 H (3.8-10.6) k/uL RBC 3.05 L (4.30-5.90) m/uL Hgb 9.3 L (13.0-17.5) gm/dL Hct 29.4 L (39.0-53.0) % RDW 17.0 H (11.5-15.5) % Plt Count 148 L (150-450) k/uL Neutrophils # 7.9 H (1.3-7.7) k/uL Monocytes # 1.5 H (0-1.0) k/uL Basophils # 0.3 H (0-0.2) k/uL Potassium 6.1 H* (3.5-5.1) mmol/L Chloride 109 H (98-107) mmol/L BUN 120 H* (9-20) mg/dL Creatinine 1.75 H (0.66-1.25) mg/dL Glucose 215 H (74-99) mg/dL Plasma Lactic Acid Francisco 2.2 H* (0.7-2.0) mmol/L Calcium 8.3 L (8.4-10.2) mg/dL Magnesium 2.5 H (1.6-2.3) mg/dL Total Protein 6.0 L (6.3-8.2) g/dL Albumin 2.9 L (3.5-5.0) g/dL 08/27/19 08/27/19 Range/Units 03:59 07:42 WBC (3.8-10.6) k/uL RBC (4.30-5.90) m/uL Hgb (13.0-17.5) gm/dL Hct (39.0-53.0) % RDW (11.5-15.5) % Plt Count (150-450) k/uL Neutrophils # (1.3-7.7) k/uL Monocytes # (0-1.0) k/uL Basophils # (0-0.2) k/uL Potassium (3.5-5.1) mmol/L Chloride (98-107) mmol/L BUN (9-20) mg/dL Creatinine (0.66-1.25) mg/dL Glucose (74-99) mg/dL Plasma Lactic Acid Rfancisco 2.2 H* 2.2 H* (0.7-2.0) mmol/L Calcium (8.4-10.2) mg/dL Magnesium (1.6-2.3) mg/dL Total Protein (6.3-8.2) g/dL Albumin (3.5-5.0) g/dL Thrombosis Risk Factor Assmnt - Choose All That Apply Any of the Below Risk Factors Present?: Yes Each Factor Represents 1 point: Swollen legs (current) Other Risk Factors: Yes Each Risk Factor Represents 3 Points: Age 75 years or older Thrombosis Risk Factor Assessment Total Risk Factor Score: 4 Thrombosis Risk Factor Assessment Level: Moderate Risk Assessment and Plan Assessment: healthcare associated pneumonia, Failed outpatient therapy Acute renal failure with hyperkalemia end of life, hospice care possible recent history of stroke over the last 2-3 months, patient has been unresponsive as per family Memory impairment, possible dementia Laryngeal cancer status post chemoradiotherapy This patient status post PEG tube placement history of coronary artery disease Diabetes mellitus Hyperlipidemia Hypertension History of kidney stones History of pancreatitis Plan: this is an 79 years old male who presents with failed pneumonia therapy and acute renal failure. Patient is unresponsive for the last 3 months. Family are wishing for hospice and comfort care, comfort care measures has been started and consult with hospice nurse and team.and other symptomatic treatment Prognosis is extremely poor and patient at risk of within hours to days
[2019-08-27] MEDS ORDERED: CITALOPRAM HYDROBROMIDE 20 MG TAB PO SCH (21:00)
[2019-08-27] MEDS ORDERED: CLOTRIMAZOLE 1% CREAM 15 GM TUBE TOPICAL SCH (21:00)
[2019-08-27] MEDS ORDERED: ATORVASTATIN 10 MG TAB PO SCH (21:00)
[2019-08-28] MEDS ORDERED: ASPIRIN 81 MG PO SCH (09:00)
== END 2019-08-27 13:45 | disposition hospice, inpatient (51) | DRG 951 ==
LOC: EC 23:43 → 4MS4W 08-27 01:10
PROVIDERS: ADMIT Internal Medicine; ATTEND Internal Medicine
DX: Z51.5 Encounter for palliative care (principal); A41.9 Sepsis, unspecified organism; G93.41 Metabolic encephalopathy; J69.0 Pneumonitis due to inhalation of food and vomit; R65.21 Severe sepsis with septic shock; N17.9 Acute kidney failure, unspecified; E11.9 Type 2 diabetes mellitus without complications; E78.5 Hyperlipidemia, unspecified; E87.5 Hyperkalemia; F10.21 Alcohol dependence, in remission; F32.9 Major depressive disorder, single episode, unspecified; H91.90 Unspecified hearing loss, unspecified ear; I11.0 Hypertensive heart disease with heart failure; I25.10 Atherosclerotic heart disease of native coronary artery without angina pectoris; I25.2 Old myocardial infarction; I50.9 Heart failure, unspecified; Y95 Nosocomial condition; Z66 Do not resuscitate; Z79.4 Long term (current) use of insulin; Z79.82 Long term (current) use of aspirin; Z79.899 Other long term (current) drug therapy; Z85.21 Personal history of malignant neoplasm of larynx; Z86.73 Personal history of transient ischemic attack (TIA), and cerebral infarction without residual deficits; Z87.442 Personal history of urinary calculi; Z87.891 Personal history of nicotine dependence; Z93.1 Gastrostomy status
CPT/HCPCS: 36415; 80053; 83605; 83735; 85025; 99285

== ENCOUNTER 2019-08-27 13:56 | Inpatient (IN) | payer MEDICAID ==
[2019-08-27] MEDS ORDERED: GLYCOPYRROLATE 0.2 MG/ML 2 ML VIAL IVP PRN (15:10)
[2019-08-27] MEDS ORDERED: ARTIFICIAL TEARS-HYPROMELLOSE DROPS 15 ML BTL BOTH EYES PRN (15:10)
[2019-08-27] MEDS ORDERED: DRY MOUTH SPRAY 44.3 SPRAY/44.3 ML SPRAY MUCOUS MEM PRN (15:10)
[2019-08-27] MEDS ORDERED: METOCLOPRAMIDE 5 MG/ML 2 ML VIAL IVP PRN (15:10)
[2019-08-27] MEDS ORDERED: MORPHINE SULFATE 2 MG/ML SYRINGE IV PRN (15:10)
[2019-08-27] MEDS ORDERED: LORazepam 2 MG/ML INJ IV PRN (15:10)
[2019-08-27] MEDS ORDERED: BISACODYL 10 MG SUPP RECTAL PRN (15:18)
[2019-08-27] MEDS: ATROPINE OPHTH SOLN 1% 5ML BTL SUBLINGUAL PRN (23:21)
[2019-08-27] MEDS: ACETAMINOPHEN SUPPOSITORY 650 MG SUPP RECTAL PRN (23:30)
[2019-08-28 02:33] VITALS: BP 91/51; PULSE 101; RESP 16
--- NOTE | 2019-08-28 09:45 | P.HPIM ---
History of Present Illness this is a pleasant 79 years old male with past medical history of coronary artery disease,diabetes mellitus, hyperlipidemia, hypertension, kidney stones, pancreatitis, vocal cord cancer, detached trending Luann, hard of hearing, possible stroke, deconditioning. Patient was admitted to the hospital for hospice care. As per and son at bedside patient has gradual deterioration over more than one year ago. When patient started having memory difficulty and frequent falling, he eventually presented to the hospital and rehab for , taking care of him. Also patient was diagnosed with laryngeal cancer and he got chemo and radiotherapy, he has PEG tube but no tracheostomy. Family are not sure about metastatic disease however patient over the last 3 months has been unresponsive and he was sent to the emergency room, suspected to have stroke and that time. In the ECF patient developed pneumonia as per family and his been trying to be treated for about a month with no improvement, eventually family decided for hospice and comfort care bases on under knowledge about patient wishes. Patient currently looks comfortable and unresponsive. As per history the patient was early tachypneic however his breathing quarter today after initiation of therapy. All questions from the family were answered and they agree with the plan. Also patient will be evaluated by hospice nurse and he got accepted for hospice currently Review of Systems N/a Past Medical History Past Medical History: Coronary Artery Disease (CAD), Cancer, Diabetes Mellitus, Hyperlipidemia, Hypertension, Myocardial Infarction ([place]) Additional Past Medical History / Comment(s): kidney stones, pancreatitis, vocal cord cancer, detached retina, Hard of Hearing, recovering alcoholic (stopped drinking 1984) Last Myocardial Infarction Date:: 2012 History of Any Multi-Drug Resistant Organisms: None Reported Past Surgical History: Cholecystectomy, Heart Catheterization With Stent Past Anesthesia/Blood Transfusion Reactions: No Reported Reaction Date of Last Stent Placement:: 2015 Past Psychological History: Unable to Obtain, Depression Smoking Status: Former smoker Past Alcohol Use History: Abuse Additional Past Alcohol Use History / Comment(s): recovering alcoholic Past Drug Use History: None Reported, Unable to Obtain - Past Family History Father History Unknown: Yes Medications and Allergies Home Medications Medication Instructions Recorded Confirmed Type Aspirin EC [Ecotrin Low Dose] 162 mg PO DAILY 02/22/18 08/27/19 History Carvedilol [Coreg] 6.25 mg PO BID 02/22/18 08/27/19 History Furosemide [Lasix] 20 mg PO DAILY 02/22/18 08/27/19 History Lisinopril [Prinivil] 5 mg PO DAILY 02/22/18 08/27/19 History Omeprazole [PriLOSEC] 20 mg PO DAILY 02/22/18 08/27/19 History Acetaminophen Tab [Tylenol] 650 mg PO Q4HR PRN 05/10/19 08/27/19 History Atorvastatin [Lipitor] 10 mg PO HS 05/11/19 08/27/19 History Magnesium Hydroxide [Milk of 2,400 mg PO Q48H PRN 05/11/19 08/27/19 History Magnesia] Albuterol Nebulized [Ventolin 2.5 mg INHALATION RT-Q6H PRN 08/27/19 08/27/19 History Nebulized] Citalopram Hydrobromide [CeleXA] 20 mg PO HS 08/27/19 08/27/19 History HYDROcodone/APAP 5-325MG [[place] 1 tab PO Q12H PRN 08/27/19 08/27/19 History 5-325] Insulin Detemir (Levemir) [Levemir] 0 unit SQ DIRECTED 08/27/19 08/27/19 History Insulin Glargine,Hum.rec.anlog 0 unit SQ DIRECTED 08/27/19 08/27/19 History [Basaglmanasa Pardo U-100] Isosorbide Dinitrate 10 mg PO TID 08/27/19 08/27/19 History Ketoconazole 2% Cream [Nizoral 2%] 1 applic TOPICAL HS 08/27/19 08/27/19 History metFORMIN HCL [Riomet] 500 mg PO BID 08/27/19 08/27/19 History Allergies Allergy/AdvReac Type Severity Reaction Status Date / Time No Known Allergies Allergy Verified 08/27/19 08:35 Physical Exam Vitals: Vital Signs Temp Pulse Resp BP Pulse Ox 08/28/19 00:15 102.6 F H 08/27/19 23:26 103.9 F H 101 H 16 91/51 92 L Intake and Output 08/27/19 08/28/19 08/28/19 22:59 06:59 14:59 Other: # Voids 1 2 -GENERAL: The patient is unresponsiveand pale HEENT: Pupils are round and equally reacting to light. EOMI. No scleral icterus. No conjunctival pallor. Normocephalic, atraumatic. No pharyngeal erythema. No thyromegaly. CARDIOVASCULAR: S1 and S2 present. No murmurs, rubs, or gallops. -PULMONARY:liver to presents with bilateral coarse crepitation and scattered wheezes ABDOMEN: Soft, nontender, nondistended, normoactive bowel sounds. No palpable organomegaly. MUSCULOSKELETAL: No joint swelling or deformity. EXTREMITIES: No cyanosis, clubbing, or pedal edema. NEUROLOGICAL: Gross neurological examination did not reveal any focal deficits. SKIN: No rashes. no petechiae. Thrombosis Risk Factor Assmnt - Choose All That Apply Any of the Below Risk Factors Present?: Yes Each Factor Represents 1 point: Swollen legs (current) Other Risk Factors: Yes Each Risk Factor Represents 3 Points: Age 75 years or older Thrombosis Risk Factor Assessment Total Risk Factor Score: 4 Thrombosis Risk Factor Assessment Level: Moderate Risk Assessment and Plan Assessment: healthcare associated pneumonia, Failed outpatient therapy Acute renal failure with hyperkalemia end of life, hospice care possible recent history of stroke over the last 2-3 months, patient has been unresponsive as per family Memory impairment, possible dementia Laryngeal cancer status post chemoradiotherapy This patient status post PEG tube placement history of coronary artery disease Diabetes mellitus Hyperlipidemia Hypertension History of kidney stones History of pancreatitis Plan: this is an 79 years old male who presents with failed pneumonia therapy and acute renal failure. Patient is unresponsive for the last 3 months as per family. Family are wishing for hospice and comfort care, patient was accepted for hospice care/ comfort care measures has been started .and other symptomatic treatment. Morphine is provided for the patient as well as Tylenol for his fever. Prognosis is extremely poor and patient at risk of within hours to days Daughter at bedside and all her questions were answered to her satisfaction. Management plan is discussed with patient's daughter and she agrees
[2019-08-28 15:41] VITALS: BMI 24.6
[2019-08-28] MEDS: ATROPINE OPHTH SOLN 1% 5ML BTL SUBLINGUAL PRN (15:51)
[2019-08-28] MEDS: ACETAMINOPHEN SUPPOSITORY 650 MG SUPP RECTAL PRN ×2 (15:52→23:36)
[2019-08-29 00:59] VITALS: TEMP 103
--- NOTE | 2019-08-29 08:20 | P.DS ---
Providers Date of admission: 08/27/19 13:56 Attending physician: Walker Montague MD Primary care physician: [facility] Course: Hospital diagnoses end of life, hospice care healthcare associated pneumonia, Failed outpatient therapy Acute renal failure with hyperkalemia possible recent history of stroke over the last 2-3 months, patient has been unresponsive as per family Memory impairment, possible dementia Laryngeal cancer status post chemoradiotherapy This patient status post PEG tube placement history of coronary artery disease Diabetes mellitus Hyperlipidemia Hypertension History of kidney stones History of pancreatitis Hospital course: this is a 79 years old male with past medical history of coronary artery disease,diabetes mellitus, hyperlipidemia, hypertension, kidney stones, pancreatitis, vocal cord cancer, detached trending Luann, hard of hearing, possible stroke, deconditioning. Patient was admitted to the hospital for hospice care. As per and son at bedside patient has gradual deterioration over more than one year ago. When patient started having memory difficulty and frequent falling, he eventually presented to the hospital and rehab for could not taking care of him. Also patient was diagnosed with laryngeal cancer and he got chemo and radiotherapy, he has PEG tube but no tracheostomy. Family are not sure about metastatic disease however patient over the last 3 months has been unresponsive and he was sent to the emergency room, suspected to have stroke and that time. In the ECF patient developed pneumonia as per family and his been trying to be treated for about a month with no improvement, eventually family decided for hospice and comfort care bases on under knowledge about patient wishes. Comfort care measures were initiated, patient remained comfortable with no distress. He is been burning high fever which was treated by Tylenol. Eventually patient today 08/29/2019 at 4:10 a.m. Discussed with family and symptoms he is provided Physical exam Gen: patient is unresponsive CVS: No heart beat Lungs: No breathing Abdomen: soft, no distention, no tenderness Extremity: no leg edema or induration Time spent more than 35 minutes Plan - Discharge Summary New Discharge Prescriptions: No Action Omeprazole [PriLOSEC] 20 mg PO DAILY Lisinopril [Prinivil] 5 mg PO DAILY Furosemide [Lasix] 20 mg PO DAILY Carvedilol [Coreg] 6.25 mg PO BID Aspirin EC [Ecotrin Low Dose] 162 mg PO DAILY Acetaminophen Tab [Tylenol] 650 mg PO Q4HR PRN PRN Reason: Fever And/ Or Pain Atorvastatin [Lipitor] 10 mg PO HS Magnesium Hydroxide [Milk of Magnesia] 2,400 mg PO Q48H PRN PRN Reason: Constipation Insulin Detemir (Levemir) [Levemir] 0 unit SQ DIRECTED Insulin Glargine,Hum.rec.anlog [Basaglar Kwikpen U-100] 0 unit SQ DIRECTED Albuterol Nebulized [Ventolin Nebulized] 2.5 mg INHALATION RT-Q6H PRN PRN Reason: Shortness Of Breath Isosorbide Dinitrate 10 mg PO TID Citalopram Hydrobromide [CeleXA] 20 mg PO HS metFORMIN HCL [Riomet] 500 mg PO BID Ketoconazole 2% Cream [Nizoral 2%] 1 applic TOPICAL HS HYDROcodone/APAP 5-325MG [[place] 5-325] 1 tab PO Q12H PRN PRN Reason: Pain Discharge Medication List Aspirin EC [Ecotrin Low Dose] 162 mg PO DAILY 02/22/18 [History] Carvedilol [Coreg] 6.25 mg PO BID 02/22/18 [History] Furosemide [Lasix] 20 mg PO DAILY 02/22/18 [History] Lisinopril [Prinivil] 5 mg PO DAILY 02/22/18 [History] Omeprazole [PriLOSEC] 20 mg PO DAILY 02/22/18 [History] Acetaminophen Tab [Tylenol] 650 mg PO Q4HR PRN 05/10/19 [History] Atorvastatin [Lipitor] 10 mg PO HS 05/11/19 [History] Magnesium Hydroxide [Milk of Magnesia] 2,400 mg PO Q48H PRN 05/11/19 [History] Albuterol Nebulized [Ventolin Nebulized] 2.5 mg INHALATION RT-Q6H PRN 08/27/19 [History] Citalopram Hydrobromide [CeleXA] 20 mg PO HS 08/27/19 [History] HYDROcodone/APAP 5-325MG [[place] 5-325] 1 tab PO Q12H PRN 08/27/19 [History] Insulin Detemir (Levemir) [Levemir] 0 unit SQ DIRECTED 08/27/19 [History] Insulin Glargine,Hum.rec.anlog [Basaglar Kwikpen U-100] 0 unit SQ DIRECTED 08/27/19 [History] Isosorbide Dinitrate 10 mg PO TID 08/27/19 [History] Ketoconazole 2% Cream [Nizoral 2%] 1 applic TOPICAL HS 08/27/19 [History] metFORMIN HCL [Riomet] 500 mg PO BID 08/27/19 [History] Activity/Diet/Wound Care/Special Instructions: [facility] [place]
[2019-08-30] MEDS ORDERED: SCOPOLAMINE 1.5MG/72HR PATCH TRANSDERM SCH (09:00)
== END 2019-08-29 09:11 | disposition expired | DRG 951 ==
LOC: 4MS4W 13:56
PROVIDERS: ADMIT Internal Medicine; ATTEND Internal Medicine
DX: Z51.5 Encounter for palliative care (principal); J18.9 Pneumonia, unspecified organism; R40.2123 Coma scale, eyes open, to pain, at hospital admission; R40.2213 Coma scale, best verbal response, none, at hospital admission; N17.9 Acute kidney failure, unspecified; Z66 Do not resuscitate; I69.398 Other sequelae of cerebral infarction; R40.2353 Coma scale, best motor response, localizes pain, at hospital admission; Y95 Nosocomial condition; Z93.1 Gastrostomy status; E87.5 Hyperkalemia; F03.90 Unspecified dementia, unspecified severity, without behavioral disturbance, psychotic disturbance, mood disturbance, and anxiety; E11.9 Type 2 diabetes mellitus without complications; F32.9 Major depressive disorder, single episode, unspecified; I25.10 Atherosclerotic heart disease of native coronary artery without angina pectoris; E78.5 Hyperlipidemia, unspecified; I10 Essential (primary) hypertension; H91.90 Unspecified hearing loss, unspecified ear; I25.2 Old myocardial infarction; F10.21 Alcohol dependence, in remission; Z91.81 History of falling; Z87.442 Personal history of urinary calculi; Z87.19 Personal history of other diseases of the digestive system; Z85.21 Personal history of malignant neoplasm of larynx; Z92.21 Personal history of antineoplastic chemotherapy; Z92.3 Personal history of irradiation; Z90.49 Acquired absence of other specified parts of digestive tract; Z95.5 Presence of coronary angioplasty implant and graft; Z87.891 Personal history of nicotine dependence; Z79.82 Long term (current) use of aspirin; Z79.4 Long term (current) use of insulin; Z79.899 Other long term (current) drug therapy